=== PATIENT | male | born 1935 | race Asian ===

== ENCOUNTER 2021-01-13 10:31 | Inpatient (IN) | payer MEDICARE, BC ==
[2021-01-13] MEDS ORDERED: ACETAMINOPHEN TAB 325 MG TAB PO STA (10:54)
--- NOTE | 2021-01-13 11:06 | ED ---
Recheck HPI - General Chief Complaint: Recheck/Abnormal Lab/Rx Stated Complaint: covid+ Time Seen by Provider: 01/13/21 10:41 Source: patient, EMS Mode of arrival: EMS - History of Present Illness Initial Comments: 85-year-old male presents to emergency room with a chief complaint of covid. Patient reports he tested positive for covid-19 3 days ago. And he began developing symptoms. Patient reports generalized myalgias and fatigue. He denies any chest pain but does report occasional exertional dyspnea. States he contacted his primary care physician who advised him to come to the emergency department for evaluation of a pneumonia. Patient does report having fevers and chills at home. Reports decreased appetite with multiple episodes of nonbilious and nonbloody vomiting. Denies any diarrhea. Denies any abdominal pain at this time. - Related Data Home Medications Medication Instructions Recorded Confirmed Hydrocortisone Cream 1 applic TOPICAL BID PRN 01/13/21 01/13/21 [Hydrocortisone 2.5% Cream] Latanoprost/Pf [Latanoprost 0.005% 1 drop BOTH EYES HS 01/13/21 01/13/21 Eye Drop] Multivitamins, Thera [Multivitamin 1 tab PO DAILY 01/13/21 01/13/21 (formulary)] Allergies Allergy/AdvReac Type Severity Reaction Status Date / Time No Known Allergies Allergy Verified 01/13/21 12:03 Review of Systems ROS Statement: Those systems with pertinent positive or pertinent negative responses have been documented in the HPI. ROS Other: All systems not noted in ROS Statement are negative. Past Medical History Past Medical History: No Reported History History of Any Multi-Drug Resistant Organisms: None Reported Past Surgical History: No Surgical Hx Reported Smoking Status: Never smoker Past Alcohol Use History: None Reported Past Drug Use History: None Reported General Exam Limitations: no limitations General appearance: alert, in no apparent distress Head exam: Present: atraumatic, normocephalic, normal inspection Eye exam: Present: normal appearance, PERRL, EOMI Pupils: Present: normal accommodation ENT exam: Present: normal exam, normal oropharynx, mucous membranes moist, TM's normal bilaterally, normal external ear exam Neck exam: Present: normal inspection, full ROM. Absent: tenderness, lymphadenopathy Respiratory exam: Present: normal lung sounds bilaterally. Absent: respiratory distress, wheezes, rales, rhonchi, stridor, chest wall tenderness, accessory muscle use Cardiovascular Exam: Present: regular rate, normal rhythm, normal heart sounds GI/Abdominal exam: Present: soft. Absent: distended, tenderness, guarding, rebound Extremities exam: Present: normal inspection, full ROM, normal capillary refill, other (Palpable DP and PT bilaterally). Absent: tenderness, pedal edema, joint swelling, calf tenderness Back exam: Present: normal inspection, full ROM. Absent: tenderness, CVA tenderness (R), CVA tenderness (L) Neurological exam: Present: alert, oriented X3, normal gait Psychiatric exam: Present: normal affect, normal mood Skin exam: Present: warm, dry, intact, normal color Course Vital Signs 01/13/21 01/13/21 01/13/21 10:32 12:06 12:09 Temperature 99.7 F H 99.6 F Pulse Rate 75 75 Respiratory 18 18 18 Rate Blood Pressure 143/77 133/77 O2 Sat by Pulse 91 L 96 Oximetry 01/13/21 01/13/21 13:12 13:14 Temperature 99.0 F Pulse Rate 79 Respiratory 18 Rate Blood Pressure 127/70 O2 Sat by Pulse 88 L 93 L Oximetry Medical Decision Making - Medical Decision Making 85-year-old male presents to the emergency department with a chief complaint of cough and congestion. On physical examination, patient does not appear to be respiratory distress. On initial evaluation, patient is saturating at 99% on room air. He drops down to 88% when I'm bleeding. Chest x-ray reveals Covid pneumonia. Laboratory work reveals elevated reactive markers along with leukopenia and decrease in lymphocytes. I spoke to who will admit. Case discussed with Dr. Littlejohn. Pulmonary in consult. - Lab Data Result diagrams: 01/13/21 11:09 01/13/21 11:09 Lab Results 01/13/21 01/13/21 01/13/21 Range/Units 11:09 11:09 11:09 WBC 3.6 L (3.8-10.6) k/uL RBC 4.76 (4.30-5.90) m/uL Hgb 14.9 (13.0-17.5) gm/dL Hct 42.7 (39.0-53.0) % MCV 89.7 (80.0-100.0) fL MCH 31.2 (25.0-35.0) pg MCHC 34.8 (31.0-37.0) g/dL RDW 12.5 (11.5-15.5) % Plt Count 106 L (150-450) k/uL MPV 8.0 Neutrophils % 65 % Lymphocytes % 26 % Monocytes % 7 % Eosinophils % 0 % Basophils % 0 % Neutrophils # 2.3 (1.3-7.7) k/uL Lymphocytes # 0.9 L (1.0-4.8) k/uL Monocytes # 0.2 (0-1.0) k/uL Eosinophils # 0.0 (0-0.7) k/uL Basophils # 0.0 (0-0.2) k/uL PT 10.5 (9.0-12.0) sec INR 1.0 (<1.2) APTT 31.7 H (22.0-30.0) sec D-Dimer 0.26 (<0.60) mg/L FEU Sodium 135 L (137-145) mmol/L Potassium 4.6 (3.5-5.1) mmol/L Chloride 102 (98-107) mmol/L Carbon Dioxide 28 (22-30) mmol/L Anion Gap 5 mmol/L BUN 26 H (9-20) mg/dL Creatinine 0.83 (0.66-1.25) mg/dL Est GFR (CKD-EPI)AfAm >90 (>60 ml/min/1.73 sqM) Est GFR (CKD-EPI)NonAf 81 (>60 ml/min/1.73 sqM) Glucose 118 H (74-99) mg/dL Plasma Lactic Acid Carlos Alberto (0.7-2.0) mmol/L Calcium 8.6 (8.4-10.2) mg/dL Magnesium 2.3 (1.6-2.3) mg/dL Total Bilirubin 0.5 (0.2-1.3) mg/dL AST 84 H (17-59) U/L ALT 40 (4-49) U/L Alkaline Phosphatase 45 (38-126) U/L Lactate Dehydrogenase 946 H (313-618) U/L C-Reactive Protein 55.6 H (<10.0) mg/L Total Protein 6.6 (6.3-8.2) g/dL Albumin 3.5 (3.5-5.0) g/dL 01/13/21 Range/Units 11:09 WBC (3.8-10.6) k/uL RBC (4.30-5.90) m/uL Hgb (13.0-17.5) gm/dL Hct (39.0-53.0) % MCV (80.0-100.0) fL MCH (25.0-35.0) pg MCHC (31.0-37.0) g/dL RDW (11.5-15.5) % Plt Count (150-450) k/uL MPV Neutrophils % % Lymphocytes % % Monocytes % % Eosinophils % % Basophils % % Neutrophils # (1.3-7.7) k/uL Lymphocytes # (1.0-4.8) k/uL Monocytes # (0-1.0) k/uL Eosinophils # (0-0.7) k/uL Basophils # (0-0.2) k/uL PT (9.0-12.0) sec INR (<1.2) APTT (22.0-30.0) sec D-Dimer (<0.60) mg/L FEU Sodium (137-145) mmol/L Potassium (3.5-5.1) mmol/L Chloride (98-107) mmol/L Carbon Dioxide (22-30) mmol/L Anion Gap mmol/L BUN (9-20) mg/dL Creatinine (0.66-1.25) mg/dL Est GFR (CKD-EPI)AfAm (>60 ml/min/1.73 sqM) Est GFR (CKD-EPI)NonAf (>60 ml/min/1.73 sqM) Glucose (74-99) mg/dL Plasma Lactic Acid Carlos Alberto 1.2 (0.7-2.0) mmol/L Calcium (8.4-10.2) mg/dL Magnesium (1.6-2.3) mg/dL Total Bilirubin (0.2-1.3) mg/dL AST (17-59) U/L ALT (4-49) U/L Alkaline Phosphatase (38-126) U/L Lactate Dehydrogenase (313-618) U/L C-Reactive Protein (<10.0) mg/L Total Protein (6.3-8.2) g/dL Albumin (3.5-5.0) g/dL - EKG Data EKG Comments: First-degree AV block, sinus rhythm Ventricular rate Disposition Clinical Impression: Pneumonia due to COVID-19 virus Disposition: ADMITTED IP TO THIS HOSP Condition: Good Instructions (If sedation given, give patient instructions): Coronavirus Disease 2019 (COVID-19) Is patient prescribed a controlled substance at d/c from ED?: No Referrals: Atiya Malloy MD [Primary Care Provider] - 1-2 days Time of Disposition: 13:33
[2021-01-13 11:34] LABS: Basophils % (A) 0 %; Eosinophils % (A) 0 %; HCT 42.7 % (39.0-53.0); HGB 14.9 gm/dL (13.0-17.5); Lymphocytes # (A) 0.9 k/uL (1.0-4.8); Lymphocytes % (A) 26 %; MCH 31.2 pg (25.0-35.0); MCHC 34.8 g/dL (31.0-37.0); MCV 89.7 fL (80.0-100.0); Monocytes # (A) 0.2 k/uL (0-1.0); Monocytes % (A) 7 %; Neutrophils # (A) 2.3 k/uL (1.3-7.7); Neutrophils % (A) 65 %; Platelet Count 106 k/uL (150-450); RBC 4.76 m/uL (4.30-5.90); RDW 12.5 % (11.5-15.5); WBC 3.6 k/uL (3.8-10.6)
[2021-01-13 11:46] LABS: ALT 40 U/L (4-49); AST 84 U/L (17-59); African American GFR (CKD) >90 (>60 ml/min/1.73 sqM); Albumin 3.5 g/dL (3.5-5.0); Alkaline Phosphatase 45 U/L (38-126); Anion Gap 5 mmol/L; Blood Urea Nitrogen 26 mg/dL (9-20); C Reactive Protein 55.6 mg/L (<10.0); Calcium 8.6 mg/dL (8.4-10.2); Carbon Dioxide 28 mmol/L (22-30); Chloride 102 mmol/L (98-107); Glucose 118 mg/dL (74-99); LDH 946 U/L (313-618); Magnesium 2.3 mg/dL (1.6-2.3); Non-African American GFR(CKD) 81 (>60 ml/min/1.73 sqM); Potassium 4.6 mmol/L (3.5-5.1); Sodium 135 mmol/L (137-145); Total Bilirubin 0.5 mg/dL (0.2-1.3); Total Protein 6.6 g/dL (6.3-8.2)
[2021-01-13 11:50] LABS: D-Dimer 0.26 mg/L FEU (<0.60); Partial Thromboplastin Time 31.7 sec (22.0-30.0); Prothrombin Time 10.5 sec (9.0-12.0)
--- NOTE | 2021-01-13 12:18 | XR ---
EXAMINATION TYPE: XR chest 1V portable DATE OF EXAM: 01/13/2021 Comparison: None Clinical History: 85-year-old male cough and shortness of breath, Suspected COVID-19 pneumonia Findings: Heart mildly enlarged. Aorta and pulmonary vasculature within normal limits. Hyperinflation. Surgical clips below the GE junction. Patchy bibasilar opacities. No pleural effusions Impression: 1. COPD and borderline heart size. 2. Patchy bibasilar areas of COVID pneumonia.
[2021-01-13] MEDS ORDERED: LORazepam 2 MG/ML INJ IV PRN (13:30)
[2021-01-13] MEDS ORDERED: NALOXONE 0.4 MG/ML 1 ML VIAL IV PRN (13:30)
[2021-01-13] MEDS ORDERED: ONDANSETRON 4 MG/2 ML VIAL IVP PRN (13:30)
--- NOTE | 2021-01-13 13:49 | P.HPIM ---
History of Present Illness Patient is a pleasant 85-year-old male came in with complaints concerning for Covid. Patient was having shortness of breath myalgias fatigue for about 4 days he was tested for Covid 19 about 3 days ago. Patient this is mostly exertional he was also comparing of lightheadedness denied any diarrhea denied any chest pain was having fever chills at home patient was having nonbilious nonbloody vomiting as well. Review of Systems REVIEW OF SYSTEMS: CONSTITUTIONAL: As mentioned in HPI HEENT: No recent visual problems or hearing problems. Denied any sore throat. CARDIOVASCULAR: No chest pain, orthopnea, PND, no palpitations, no syncope. PULMONARY: no hemoptysis. GASTROINTESTINAL: As mentioned in HPI NEUROLOGICAL: No headaches, no weakness, no numbness. HEMATOLOGICAL: Denies any bleeding or petechiae. GENITOURINARY: Denies any burning micturition, frequency, or urgency. MUSCULOSKELETAL/RHEUMATOLOGICAL: Denies any joint pain, swelling, or any muscle pain. ENDOCRINE: Denies any polyuria or polydipsia. The rest of the 14-point review of systems is negative. Past Medical History Past Medical History: No Reported History History of Any Multi-Drug Resistant Organisms: None Reported Past Surgical History: No Surgical Hx Reported Smoking Status: Never smoker Past Alcohol Use History: None Reported Past Drug Use History: None Reported Medications and Allergies Home Medications Medication Instructions Recorded Confirmed Type Hydrocortisone Cream 1 applic TOPICAL BID PRN 01/13/21 01/13/21 History [Hydrocortisone 2.5% Cream] Latanoprost/Pf [Latanoprost 0.005% 1 drop BOTH EYES HS 01/13/21 01/13/21 History Eye Drop] Multivitamins, Thera [Multivitamin 1 tab PO DAILY 01/13/21 01/13/21 History (formulary)] Allergies Allergy/AdvReac Type Severity Reaction Status Date / Time No Known Allergies Allergy Verified 01/13/21 12:03 Physical Exam Vitals: Vital Signs Temp Pulse Resp BP Pulse Ox 01/13/21 13:14 93 L 01/13/21 13:12 99.0 F 79 18 127/70 88 L 01/13/21 12:09 18 01/13/21 12:06 99.6 F 75 18 133/77 96 01/13/21 10:32 99.7 F H 75 18 143/77 91 L Intake and Output 01/12/21 01/13/21 01/13/21 22:59 06:59 14:59 Other: Weight 56.699 kg PHYSICAL EXAMINATION: GENERAL: The patient is alert and oriented x3, not in any acute distress. Well developed, well nourished. HEENT: Pupils are round and equally reacting to light. EOMI except in the left eye which is opacified. No scleral icterus. No conjunctival pallor. Normocephalic, atraumatic. No pharyngeal erythema. No thyromegaly. CARDIOVASCULAR: S1 and S2 present. No murmurs, rubs, or gallops. PULMONARY: Chest is clear to auscultation, no wheezing or crackles. ABDOMEN: Soft, nontender, nondistended, normoactive bowel sounds. No palpable organomegaly. MUSCULOSKELETAL: No joint swelling or deformity. EXTREMITIES: No cyanosis, clubbing, or pedal edema. NEUROLOGICAL: Gross neurological examination did not reveal any focal deficits. SKIN: No rashes. Results CBC & Chem 7: 01/13/21 11:09 01/13/21 11:09 Labs: Abnormal Lab Results - Last 24 Hours (Table) 01/13/21 01/13/21 01/13/21 Range/Units 11:09 11:09 11:09 WBC 3.6 L (3.8-10.6) k/uL Plt Count 106 L (150-450) k/uL Lymphocytes # 0.9 L (1.0-4.8) k/uL APTT 31.7 H (22.0-30.0) sec Sodium 135 L (137-145) mmol/L BUN 26 H (9-20) mg/dL Glucose 118 H (74-99) mg/dL AST 84 H (17-59) U/L Lactate Dehydrogenase 946 H (313-618) U/L C-Reactive Protein 55.6 H (<10.0) mg/L Assessment and Plan Plan: Covid 19 pneumonia and hypoxia secondary to Covid 19: Patient chest x-ray showing typical infiltrate for Covid 19 patient does have elevated inflammatory markers d-dimer is 0.26, patient's symptomatology is only of 4 days duration. I'll leave the decision of further steroids to pulmonology patient will be started on Remdesivir Covid vitamins. Patient is presently on 2 L of oxygen. Patient will be monitored -Dizziness: Secondary to Covid 19 infection, patient will be continued on IV fluids -DVT prophylaxis: Lovenox for GI prophylaxis with Pepcid
[2021-01-13] MEDS ORDERED: REMDESIVIR 200 MG in SODIUM CHLORIDE 0.9% 250 ML IVPB ONE (14:00)
[2021-01-13] MEDS: ASCORBIC ACID 500 MG TAB PO SCH ×2 (16:05→20:31)
[2021-01-13] MEDS: SODIUM CHLORIDE 0.9% 1,000 ML IV SCH ×2 (16:05→19:13)
[2021-01-13] MEDS: FAMOTIDINE 20 MG TAB PO SCH ×2 (16:05→20:31)
[2021-01-13] MEDS: ZINC SULFATE 220 MG CAP PO SCH (16:08)
[2021-01-14 00:45] LABS: Ferritin 2285.2 ng/mL (22.0-322.0)
[2021-01-14] MEDS: ACETAMINOPHEN TAB 325 MG TAB PO PRN ×2 (02:58→15:16)
[2021-01-14] MEDS: SODIUM CHLORIDE 0.9% 1,000 ML IV SCH ×4 (03:53→17:38)
[2021-01-14] MEDS ORDERED: PANTOPRAZOLE 40 MG/10 ML VIAL IV SCH (09:00)
[2021-01-14] MEDS: ASCORBIC ACID 500 MG TAB PO SCH ×2 (09:02→20:39)
[2021-01-14] MEDS: FAMOTIDINE 20 MG TAB PO SCH ×2 (09:02→20:39)
[2021-01-14] MEDS: ENOXAPARIN 40 MG/0.4 ML SYRINGE SQ SCH (09:02)
[2021-01-14] MEDS: ZINC SULFATE 220 MG CAP PO SCH (09:02)
[2021-01-14] MEDS: dexAMETHasone 2 MG TAB PO SCH (13:22)
--- NOTE | 2021-01-14 13:39 | P.PN ---
Subjective Patient is a pleasant 85-year-old male came in with complaints concerning for Covid. Patient was having shortness of breath myalgias fatigue for about 4 days he was tested for Covid 19 about 3 days ago. Patient this is mostly exertional he was also comparing of lightheadedness denied any diarrhea denied any chest pain was having fever chills at home patient was having nonbilious nonbloody vomiting as well. 01/14/2021 Patient is clinically doing fairly well, requires oxygen for ambulation. We'll continue to monitor him today. Patient if patient's oxygen requirements doesn't go up patient probably can be discharged. is presently on 2 L of oxygen. Patient is being continued on Remdesivir and patient is was started on Decadron as well. Constitutional: Denied any fatigue denied any fever. Cardio vascular: denied any chest pain, palpitations Gastrointestinal denied any nausea vomiting Pulmonary: Denied any shortness of breath cough Neurologic denied any new focal deficits All inpatient medications were reviewed and appropriate changes in these medications as dictated in the interval history and assessment and plan. Objective - Vital Signs Vital signs: Vital Signs Temp 99.5 F 01/14/21 10:21 Pulse 68 01/14/21 10:21 Resp 16 01/14/21 06:10 BP 114/59 01/14/21 10:21 Pulse Ox 96 01/14/21 10:21 Intake & Output 01/13/21 01/14/21 01/14/21 18:59 06:59 18:59 Weight 56.699 kg Other: Voiding Method Toilet # Voids 1 3 - Exam PHYSICAL EXAMINATION: GENERAL: The patient is alert and oriented x3, not in any acute distress. Well developed, well nourished. HEENT: Pupils are round and equally reacting to light. EOMI except in the left eye which is opacified. No scleral icterus. No conjunctival pallor. Normocephalic, atraumatic. No pharyngeal erythema. No thyromegaly. CARDIOVASCULAR: S1 and S2 present. No murmurs, rubs, or gallops. PULMONARY: Chest is clear to auscultation, no wheezing or crackles. ABDOMEN: Soft, nontender, nondistended, normoactive bowel sounds. No palpable organomegaly. MUSCULOSKELETAL: No joint swelling or deformity. EXTREMITIES: No cyanosis, clubbing, or pedal edema. NEUROLOGICAL: Gross neurological examination did not reveal any focal deficits. SKIN: No rashes. - Labs CBC & Chem 7: 01/13/21 11:09 01/13/21 11:09 Labs: Abnormal Lab Results - Last 24 Hours (Table) 01/13/21 Range/Units 11:09 Ferritin 2285.2 H (22.0-322.0) ng/mL Assessment and Plan Plan: Covid 19 pneumonia and hypoxia secondary to Covid 19: Patient chest x-ray showing typical infiltrate for Covid 19 patient does have elevated inflammatory markers d-dimer is 0.26, patient's symptomatology is only of 4 days duration. Patient is presently on Remdesivir Covid vitamins, Decadron. Patient is presently on 2 L of oxygen. Patient will be monitored. If patient's arms and the colon was doesn't go probably can be discharged on oxygen to home tomorrow. -Dizziness: Secondary to Covid 19 infection, patient will be continued on IV fluids -DVT prophylaxis: Lovenox for GI prophylaxis with Pepcid
--- NOTE | 2021-01-14 14:36 | P.PN ---
Subjective Progress Note Date: 01/14/21 Principal diagnosis: COVID-19 pneumonia On 01/14/2021 patient seen in follow-up on medical surgical floor, he was a bit better today, remains on 2 L of oxygen pulse ox is 96%, he did have a fever spike this afternoon, with a temp of 101.9F, no worsening dyspnea, lung sounds are positive for diffuse coarse crackles throughout the lung [place], no nausea or vomiting, no dizziness, breathing fairly comfortably, no significant cough, remains weak. No new labs from today, on yesterday's labs his d-dimer was 0.26, sodium is 135 and the rest of electrolytes and renal profile were unremarkable. LDH was 946, and CRP was 55.6. We did start the patient on Remdesivir yesterday, today is day 2 of treatment, he remains on point and was seen at a rate of 75 ML per hour, he is on multivitamins, prophylactic Lovenox, and we will add Decadron today. Objective - Vital Signs Vital signs: Vital Signs Temp 101.9 F H 01/14/21 14:00 Pulse 67 01/14/21 14:00 Resp 18 01/14/21 14:00 BP 132/65 01/14/21 14:00 Pulse Ox 96 01/14/21 14:00 Intake & Output 01/13/21 01/14/21 01/14/21 18:59 06:59 18:59 Weight 56.699 kg Other: Voiding Method Toilet # Voids 1 3 - Exam GENERAL EXAM: Very pleasant, 85-year-old frail looking male 2 L of oxygen and a pulse ox of 96% comfortable in no apparent distress. HEAD: Normocephalic/atraumatic. EYES: Normal reaction of pupils, equal size. Conjunctiva pink, sclera white. NOSE: Clear with pink turbinates. THROAT: No erythema or exudates. NECK: No masses, no JVD, no thyroid enlargement, no adenopathy. CHEST: No chest wall deformity. Symmetrical expansion. LUNGS: Equal air entry with coarse diffuse crackles throughout CVS: Regular rate and rhythm, normal S1 and S2, no gallops, no murmurs, no rubs ABDOMEN: Soft, nontender. No hepatosplenomegaly, normal bowel sounds, no guarding or rigidity. EXTREMITIES: No clubbing, no edema, no cyanosis, 2+ pulses and upper and lower extremities. MUSCULOSKELETAL: Muscle strength and tone normal. SPINE: No scoliosis or deformity SKIN: No rashes CENTRAL NERVOUS SYSTEM: Alert and oriented -3. No focal deficits, tone is normal in all 4 extremities. PSYCHIATRIC: Alert and oriented -3. Appropriate affect. Intact judgment and insight. - Labs CBC & Chem 7: 01/13/21 11:09 01/13/21 11:09 Labs: Abnormal Lab Results - Last 24 Hours (Table) 01/13/21 Range/Units 11:09 Ferritin 2285.2 H (22.0-322.0) ng/mL Assessment and Plan Plan: assessment: #1. Acute hypoxic respiratory failure related to acute COVID-19 pneumonia, p ositive symptoms 4 days prior to presentation, patient was started on Remdesivir on 01/13/2021 #2. Dizziness, weakness, fever related to the above #3. Increased inflammatory markers related to the above Plan: We will add Decadron to patient's treatment, continue the multivitamins, the D2 of treatment, follow-up inflammatory markers tomorrow, continue same dose Lovenox, follow-up d-dimer tomorrow I performed a history & physical examination of the patient and discussed their management with my nurse practitioner, Sophia Garcia. I reviewed the nurse practitioner's note and agree with the documented findings and plan of care. Lung sounds are positive for diffuse crackles. The findings and the impression was discussed with the patient. I attest to the documentation by the nurse pra ctitioner. Time with Patient: Less than 30
--- NOTE | 2021-01-14 14:48 | P.CNPUL ---
History of Present Illness Consult date: 01/13/21 Reason for consult: dyspnea, pneumonia History of present illness: 85-year-old male patient presented with Covid 19 related pneumonia and the pat ient is currently on oxygen at 2 L per minute nasal cannula and a chest x-ray showing COPD and patchy bibasilar pulmonary infiltrates consistent with pneumonia. The patient developed symptoms of generalized weakness and fatigue and myalgias along with some fever and chills and multiple episodes of nausea and vomiting and he tested positive for Covid 19 around 3 days ago. Based on worsening shortness of breath, the patient came into the emergency department and he was hospitalized. His current vitals are all stable, white cell count is at 3.6 and the patient a platelet count of 106, the patient had normal electrolytes, normal renal function, LDH was 946 with a CRP level of 55.6 and electrolytes and renal function were all within normal limits. The d-dimer was at 0.26. Rest of the correlation profile is within normal limits. Lactic acid level was at 1.2. EKG was showing a first degree AV block, normal sinus rhythm. Review of Systems Constitutional: Reports chills, Reports fatigue, Reports fever, Reports malaise, Reports poor appetite, Reports weakness Eyes: denies as per HPI, denies blurred vision, denies bulging eye, denies decreased vision, denies diplopia, denies discharge, denies dry eye, denies irritation, denies itching, denies pain, denies photophobia, denies loss of peripheral vision, denies loss of vision, denies tunnel vision/blind spots Ears: deny: decreased hearing, ear discharge, earache, tinnitus Ears, nose, mouth and throat: Reports as per HPI Breasts: absent: as per HPI, gynecomastia Cardiovascular: Reports decreased exercise tolerance, Reports dyspnea on exertion Respiratory: Reports cough, Reports dyspnea Gastrointestinal: Reports as per HPI, Reports nausea, Reports vomiting Genitourinary: Reports as per HPI Musculoskeletal: Reports as per HPI, Reports muscle weakness Musculoskeletal: absent: ankle pain, ankle stiffness, ankle swelling, as per HPI, elbow pain, elbow stiffness, elbow swelling, foot pain, foot stiffness, foot swelling, hand pain, hand stiffness, hand swelling, hip pain, hip stiffness, hip swelling, knee pain, knee stiffness, knee swelling, shoulder pain, shoulder stiffness, shoulder swelling, wrist pain, wrist stiffness, wrist swelling Integumentary: Reports as per HPI Neurological: Reports weakness Psychiatric: Reports as per HPI Endocrine: Reports as per HPI, Reports fatigue Allergic/Immunologic: Reports as per HPI Past Medical History Past Medical History: No Reported History History of Any Multi-Drug Resistant Organisms: None Reported Past Surgical History: No Surgical Hx Reported Smoking Status: Never smoker Past Alcohol Use History: None Reported Past Drug Use History: None Reported - Past Family History Mother History Unknown: Yes Medications and Allergies Home Medications Medication Instructions Recorded Confirmed Type Hydrocortisone Cream 1 applic TOPICAL BID PRN 01/13/21 01/13/21 History [Hydrocortisone 2.5% Cream] Latanoprost/Pf [Latanoprost 0.005% 1 drop BOTH EYES HS 01/13/21 01/13/21 History Eye Drop] Multivitamins, Thera [Multivitamin 1 tab PO DAILY 01/13/21 01/13/21 History (formulary)] Allergies Allergy/AdvReac Type Severity Reaction Status Date / Time No Known Allergies Allergy Verified 01/13/21 12:03 Physical Exam Vitals: Vital Signs Temp Pulse Resp BP Pulse Ox 01/13/21 14:29 99.0 F 79 18 127/70 93 L 01/13/21 13:14 93 L 01/13/21 13:12 99.0 F 79 18 127/70 88 L 01/13/21 12:09 18 01/13/21 12:06 99.6 F 75 18 133/77 96 01/13/21 10:32 99.7 F H 75 18 143/77 91 L Intake and Output 01/13/21 01/13/21 01/13/21 06:59 14:59 22:59 Other: Weight 56.699 kg Gen. appearance the patient is calm and comfortable no acute distress Head exam was generally normal. There was no scleral icterus or corneal arcus. Mucous membranes were moist. Neck was supple and without jugular venous distension, thyromegaly, or carotid bruits. Carotids were easily palpable bilaterally. There was no adenopathy. Lungs were clear to auscultation and percussion, and with normal diaphragmatic excursion. crackles in lung bases bilaterally Cardiac exam revealed the PMI to be normally situated and sized. The rhythm was regular and no extrasystoles were noted during several minutes of auscultation. The first and second heart sounds were normal and physiologic splitting of the second heart sound was noted. There were no murmurs, rubs, clicks, or gallops. Abdominal exam revealed normal bowel sounds. The abdomen was soft, non-tender, and without masses, organomegaly, or appreciable enlargement of the abdominal aorta. Examination of the extremities revealed easily palpable radial, femoral and pedal pulses. There was no cyanosis, clubbing or edema. Examination of the skin revealed no evidence of significant rashes, suspicious appearing nevi or other concerning lesions. Neurologically, the patient is awake and alert and the patient does not have any focal neurological deficit. Cranial nerves are essentially intact. Results - Laboratory Findings CBC and BMP: 01/13/21 11:09 01/13/21 11:09 PT/INR, D-dimer PT 10.5 sec (9.0-12.0) 01/13/21 11:09 INR 1.0 (<1.2) 01/13/21 11:09 D-Dimer 0.26 mg/L FEU (<0.60) 01/13/21 11:09 Abnormal lab findings: Abnormal Labs 01/13/21 01/13/21 01/13/21 11:09 11:09 11:09 WBC 3.6 L Plt Count 106 L Lymphocytes # 0.9 L APTT 31.7 H Sodium 135 L BUN 26 H Glucose 118 H AST 84 H Lactate Dehydrogenase 946 H C-Reactive Protein 55.6 H - Diagnostic Findings Chest x-ray: image reviewed Assessment and Plan Plan: 1 acute Covid 19 related pneumonia 2 acute hypoxic respiratory failure currently on 2 L of Oxymizer nasal cannula 3 leukopenia and lymphopenia secondary to above 4 thrombocytopenia secondary to above 5 constitutions symptoms and elevation of the inflammatory markers secondary to above. D-dimer is low Plan Continue oxygen at 2 L Agree on Decadron 6 mg by mouth daily Lovenox 40 mg subcu every 24 hours IV fluids 75 mL an hour Remdesivir protocol Monitor blood work and inflammatory markers We'll follow
--- NOTE | 2021-01-14 14:55 | CDI ---
Documentation Clarification Form Date: 01/14/2021 02:33:04 PM From: Leonora Casiano RN CCDS Admit Date: 01/13/2021 01:29:00 PM Patient Name: Narinder Burkett Visit Number: [id number] Discharge Date: ATTENTION: The Clinical Documentation Specialists (CDI) and [facility] Coding Staff appreciate your assistance in clarifying documentation. Please respond to the clarification below the line at the bottom and electronically sign. The CDI & [facility] Coding staff will review the response and follow-up if needed. Please note: Queries are made part of the Legal Health Record. If you have any questions, please contact the author of this message via ITS. Dr. Sudeep Solitario Your patient has hypoxia secondary to COVID 19 documented in H&P 01/13/21. Based on this information and the findings below, is there an additional diagnosis that is clinically appropriate for this patient? History/Risk Factors: 85-year-old male presents to the ED with shortness of breath myalgias and fatigue for 4 days. Tested about 3 days ago for COVID 19. Tobacco use: Never Home oxygen: None Clinical Indicators: COVID 19 pneumonia and hypoxia secondary to COVID 19. 01/13/21 H&P can be discharge on oxygen to home tomorrow. 01/14/21 medical progress note. Vital signs 01/13 13:12: B/P 127/70; HR 79; Temp 99.0 F Oral; RR 18; SpO2 88% room air. Patient was put on 2L nasal cannula SpO2 93% Vital signs 01/13 18:00: B/P 123/6; HR 65; Temp 97.6 F Oral; RR 18; SpO2 96% 2L nasal cannula Lung/Breathing assessment 01/14: Chest is clear to auscultation, no wheezing or crackles. Treatment: 01/14 Hexadrol 6mg po daily. Oxygen 2L nasal cannula Is there an additional diagnosis that is clinically appropriate for this patient? Acute Hypoxic Respiratory Failure (pO2 <60 mm Hg or SpO2 <91% on room air) Other Diagnosis, please specify Unable to determine (Template Last Revised: December 2020) _Acute Hypoxic Respiratory Failure MTDD
[2021-01-14] MEDS ORDERED: REMDESIVIR 100 MG in SODIUM CHLORIDE 0.9% 250 ML IVPB SCH (16:00)
[2021-01-15] MEDS: SODIUM CHLORIDE 0.9% 1,000 ML IV SCH ×2 (04:36)
[2021-01-15] MEDS ORDERED: PANTOPRAZOLE 40 MG TABLET PO SCH (07:30)
[2021-01-15] MEDS: ZINC SULFATE 220 MG CAP PO SCH (08:09)
[2021-01-15] MEDS: FAMOTIDINE 20 MG TAB PO SCH (08:09)
[2021-01-15] MEDS: dexAMETHasone 2 MG TAB PO SCH (08:09)
[2021-01-15] MEDS: ASCORBIC ACID 500 MG TAB PO SCH (08:09)
[2021-01-15] MEDS: ENOXAPARIN 40 MG/0.4 ML SYRINGE SQ SCH (08:09)
[2021-01-15] MEDS ORDERED: dexAMETHasone 2 MG TAB PO SCH (09:00)
[2021-01-15 09:52] VITALS: RESP 18
--- NOTE | 2021-01-15 10:15 | XR ---
EXAMINATION TYPE: XR chest 1V portable DATE OF EXAM: 01/15/2021 COMPARISON: 01/13/2021 INDICATION: Short of breath, cold. TECHNIQUE: Single frontal view of the chest is obtained. FINDINGS: The heart size is highly prominent. The pulmonary vasculature is normal. Bibasilar infiltrates are present slightly greater on the right. Findings are worsening. IMPRESSION: 1. Worsening bibasilar infiltrates. Findings can Correlate for atypical pneumonia.
--- NOTE | 2021-01-15 12:21 | P.PN ---
Subjective Progress Note Date: 01/15/212020 the patient is a comfortably in bed. No new complaints. He is on oxygen at 2 L per minute nasal cannula. He is eating. He thinks his appetite is back. No worsening shortness of breath. No nausea. No vomiting. No diarrhea. He still weak. Decision is whether to send him home versus rehabilitation. He remains on Decadron. Objective - Vital Signs Vital signs: Vital Signs Temp 98.3 F 01/15/21 09:23 Pulse 55 L 01/15/21 09:23 Resp 18 01/15/21 09:23 BP 123/52 01/15/21 09:23 Pulse Ox 93 L 01/15/21 09:23 Intake & Output 01/14/21 01/15/21 01/15/21 18:59 06:59 18:59 Other: Voiding Method Toilet # Voids 3 1 - Exam GENERAL EXAM: Very pleasant, 85-year-old frail looking male 2 L of oxygen and a pulse ox of 96% comfortable in no apparent distress. HEAD: Normocephalic/atraumatic. EYES: Normal reaction of pupils, equal size. Conjunctiva pink, sclera white. NOSE: Clear with pink turbinates. THROAT: No erythema or exudates. NECK: No masses, no JVD, no thyroid enlargement, no adenopathy. CHEST: No chest wall deformity. Symmetrical expansion. LUNGS: Equal air entry with coarse diffuse crackles throughout CVS: Regular rate and rhythm, normal S1 and S2, no gallops, no murmurs, no rubs ABDOMEN: Soft, nontender. No hepatosplenomegaly, normal bowel sounds, no guarding or rigidity. EXTREMITIES: No clubbing, no edema, no cyanosis, 2+ pulses and upper and lower extremities. MUSCULOSKELETAL: Muscle strength and tone normal. SPINE: No scoliosis or deformity SKIN: No rashes CENTRAL NERVOUS SYSTEM: Alert and oriented -3. No focal deficits, tone is normal in all 4 extremities. PSYCHIATRIC: Alert and oriented -3. Appropriate affect. Intact judgment and insight. - Labs CBC & Chem 7: 01/13/21 11:09 01/13/21 11:09 Labs: Abnormal Lab Results - Last 24 Hours (Table) 01/14/21 Range/Units 10:46 Procalcitonin 0.18 H (0.02-0.09) ng/mL Assessment and Plan Plan: 1 acute Covid 19 related pneumonia, clinically improved. Appetite improved. Oxygen levels are stable at 2 L. 2 acute hypoxic respiratory failure currently on 2 L of Oxymizer nasal cannula 3 leukopenia and lymphopenia secondary to above 4 thrombocytopenia secondary to above 5 constitutions symptoms and elevation of the inflammatory markers secondary to above. D-dimer is low Plan Continue oxygen at 2 L Agree on Decadron 6 mg by mouth daily Lovenox 40 mg subcu every 24 hours Remdesivir protocol day #3. This can be cut short and the patient can be transferred to either home or rehabilitation. He will need oxygen at time of discharge. We'll follow
[2021-01-15 13:15] LABS: African American GFR (CKD) 101.1 (60.0-200.0); Anion Gap 5.2 mmol/L (4.00-12.00); BUN/Creat Ratio 34.29 Ratio (12.00-20.00); C Reactive Protein 4.8 mg/dL (0.0-0.8); Calcium 8.1 mg/dL (8.7-10.3); Carbon Dioxide 24.8 mmol/L (21.6-31.8); Non-African American GFR(CKD) 87.3 (60.0-200.0); Potassium 4.3 mmol/L (3.5-5.5)
--- NOTE | 2021-01-15 13:24 | P.DS ---
Providers Date of admission: 01/13/21 13:29 Attending physician: Sudeep Solitario Consults: 01/13/21 13:30 Consult Physician Routine Consulting Provider: Dennis Nation Consult Reason/Comments: Covid pneumonia Do you want consulting provider notified?: Yes Primary care physician: Atiya [facility] Course: Patient is a pleasant 85-year-old male came in with complaints concerning for Covid. Patient was having shortness of breath myalgias fatigue for about 4 days he was tested for Covid 19 about 3 days ago. Patient this is mostly exertional he was also comparing of lightheadedness denied any diarrhea denied any chest pain was having fever chills at home patient was having nonbilious nonbloody vomiting as well. 01/14/2021 Patient is clinically doing fairly well, requires oxygen for ambulation. We'll continue to monitor him today. Patient if patient's oxygen requirements doesn't go up patient probably can be discharged. is presently on 2 L of oxygen. Patient is being continued on Remdesivir and patient is was started on Decadron as well. PHYSICAL EXAMINATION: GENERAL: The patient is alert and oriented x3, not in any acute distress. Well developed, well nourished. HEENT: Pupils are round and equally reacting to light. EOMI except in the left eye which is opacified. No scleral icterus. No conjunctival pallor. Normocephalic, atraumatic. No pharyngeal erythema. No thyromegaly. CARDIOVASCULAR: S1 and S2 present. No murmurs, rubs, or gallops. PULMONARY: Chest is clear to auscultation, no wheezing or crackles. ABDOMEN: Soft, nontender, nondistended, normoactive bowel sounds. No palpable organomegaly. MUSCULOSKELETAL: No joint swelling or deformity. EXTREMITIES: No cyanosis, clubbing, or pedal edema. NEUROLOGICAL: Gross neurological examination did not reveal any focal deficits. SKIN: No rashes. Assessment and Plan Plan: Covid 19 pneumonia and hypoxia : Patient is doing better today patient will be Mika 2 L of oxygen desaturates upon ambulation. Patient received 2 days of Remdesivir. Patient will be discharged on Decadron and multivitamins -Dizziness: Secondary to Covid 19 infection, improved with IV fluids Patient Condition at Discharge: Good Plan - Discharge Summary Discharge Rx Participant: Yes New Discharge Prescriptions: New dexAMETHasone ORAL [Hexadrol] 6 mg PO DAILY #6 tab Zinc Sulfate [Orazinc] 220 mg PO DAILY #20 cap Famotidine [Pepcid] 20 mg PO BID #14 tab Ascorbic Acid [Vitamin C] 500 mg PO BID #20 tab Continue Multivitamins, Thera [Multivitamin (formulary)] 1 tab PO DAILY Latanoprost/Pf [Latanoprost 0.005% Eye Drop] 1 drop BOTH EYES HS Hydrocortisone Cream [Hydrocortisone 2.5% Cream] 1 applic TOPICAL BID PRN PRN Reason: Rash Discharge Medication List Hydrocortisone Cream [Hydrocortisone 2.5% Cream] 1 applic TOPICAL BID PRN 01/13/21 [History] Latanoprost/Pf [Latanoprost 0.005% Eye Drop] 1 drop BOTH EYES HS 01/13/21 [History] Multivitamins, Thera [Multivitamin (formulary)] 1 tab PO DAILY 01/13/21 [Histor y] Ascorbic Acid [Vitamin C] 500 mg PO BID #20 tab 01/15/21 [Rx] Famotidine [Pepcid] 20 mg PO BID #14 tab 01/15/21 [Rx] Zinc Sulfate [Orazinc] 220 mg PO DAILY #20 cap 01/15/21 [Rx] dexAMETHasone ORAL [Hexadrol] 6 mg PO DAILY #6 tab 01/15/21 [Rx] Follow up Appointment(s)/Referral(s): Atiya Malloy MD [Primary Care Provider] - 3 Days Patient Instructions/Handouts: Coronavirus Disease 2019 (COVID-19)
[2021-01-15 15:49] VITALS: BP 128/61; PULSE 63; TEMP 97.4
== END 2021-01-15 16:53 | disposition home or self-care (01) | DRG 177 ==
LOC: EC 10:31 → 4SSUR 13:29
PROVIDERS: ADMIT Internal Medicine; ATTEND Internal Medicine
PROC: XW033E5 Introduction of Remdesivir Anti-infective into Peripheral Vein, Percutaneous Approach, New Technology Group 5 (ICD-10-PCS; principal; 2021-01-14)
DX: U07.1 COVID-19 (principal); J96.01 Acute respiratory failure with hypoxia; J12.82 Pneumonia due to coronavirus disease 2019; D72.819 Decreased white blood cell count, unspecified; D72.810 Lymphocytopenia; D69.59 Other secondary thrombocytopenia; Z79.899 Other long term (current) drug therapy
CPT/HCPCS: 36415; 71045; 80048; 80053; 82728; 83605; 83615; 83735; 84145; 85025; 85379; 85610; 85730; 86140; 93005; 94760; 99285

== ENCOUNTER 2022-06-03 09:35 | Inpatient (IN) | payer MEDICARE, BC ==
[2022-06-03 09:42] LABS: Glucose,Whole Blood 233 mg/dL (70-110)
[2022-06-03] MEDS ORDERED: LORazepam 2 MG/ML INJ IV STA ×4 (09:51→11:14)
--- NOTE | 2022-06-03 09:53 | ED ---
General Adult HPI - General Chief complaint: Cardiac Arrest/CPR Stated complaint: cardiac arrest Time Seen by Provider: 06/03/22 09:35 Source: patient, EMS, RN notes reviewed, old records reviewed Mode of arrival: EMS - History of Present Illness Initial comments: This is an 86-year-old male who presents emergency Department after being found unresponsive by his at 835. When EMS arrived patient was in PE they started following ACLS protocol patient was given 2 epis and intubated at that point time the had return of spontaneous circulation and 905. In route patient's patient was bradycardic so they started pacing the patient in route. When patient arrived he had a good pulse without pacing and a blood pressure in the normal range. No other history is available this time - Related Data Home Medications Medication Instructions Recorded Confirmed Latanoprost/Pf [Latanoprost 0.005% 1 drop BOTH EYES HS 01/13/21 06/03/22 Eye Drop] Ascorbic Acid [Vitamin C] 1,000 mg PO DAILY 06/03/22 06/03/22 Cholecalciferol [Vitamin D3 (25 25 mcg PO DAILY 06/03/22 06/03/22 Mcg = 1000 Iu)] Cyanocobalamin (Vitamin B-12) 1,000 mcg PO DAILY 06/03/22 06/03/22 [Vitamin B-12] Melatonin 5 mg PO HS 06/03/22 06/03/22 Multivit-Min/FA/Lycopen/Lutein 1 tab PO DAILY 06/03/22 06/03/22 [Centrum Silver Tablet] Zinc 50 mg PO DAILY 06/03/22 06/03/22 Allergies Allergy/AdvReac Type Severity Reaction Status Date / Time No Known Allergies Allergy Verified 06/03/22 12:19 Review of Systems ROS Statement: Those systems with pertinent positive or pertinent negative responses have been documented in the HPI. ROS Other: All systems not noted in ROS Statement are negative. Past Medical History Past Medical History: No Reported History History of Any Multi-Drug Resistant Organisms: None Reported Past Surgical History: No Surgical Hx Reported Past Psychological History: Unable to Obtain Smoking Status: Never smoker Past Alcohol Use History: None Reported Past Drug Use History: None Reported - Past Family History Mother History Unknown: Yes General Exam - General Exam Comments Initial Comments: GENERAL: Patient is well-developed and well-nourished. Patient is nontoxic and well- hydrated and is intubated and unresponsive ENT: Neck is soft and supple. No significant lymphadenopathy is noted. Oropharynx is clear. Moist mucous membranes. Neck has full range of motion without eliciting any pain. EYES: The sclera were anicteric and conjunctiva were pink and moist. PULMONARY: Patient is intubated does have good breath sounds bilaterally. Patient is breathing on his own. No audible rales rhonchi or wheezing was noted. CARDIOVASCULAR: There is a regular rate and rhythm without any murmurs gallops or rubs. ABDOMEN: Soft and nontender with normal bowel sounds. SKIN: Skin is clear with no lesions or rashes and otherwise unremarkable. NEUROLOGIC: Patient is unresponsive MUSCULOSKELETAL: No lower extremity swelling or edema. No calf tenderness. LYMPHATICS: No significant lymphadenopathy is noted PSYCHIATRIC: Unable to stop Course Vital Signs 06/03/22 06/03/22 06/03/22 09:35 09:44 09:56 Temperature Pulse Rate 50 L 78 97 Respiratory 18 22 22 Rate Blood Pressure 112/96 161/140 151/71 O2 Sat by Pulse 98 98 96 Oximetry Fraction of 100 Inspired Oxygen (FIO2) 06/03/22 06/03/22 06/03/22 10:01 10:32 10:57 Temperature 98.0 F Pulse Rate 102 H 110 H 91 Respiratory 26 H 26 H 23 Rate Blood Pressure 110/64 109/56 O2 Sat by Pulse 94 L 99 96 Oximetry Fraction of Inspired Oxygen (FIO2) 06/03/22 06/03/22 06/03/22 11:06 11:14 11:26 Temperature Pulse Rate 100 107 H 144 H Respiratory 41 H 46 H 36 H Rate Blood Pressure 124/55 118/82 120/82 O2 Sat by Pulse 96 94 L 83 L Oximetry Fraction of Inspired Oxygen (FIO2) 06/03/22 06/03/22 06/03/22 11:52 12:29 12:53 Temperature Pulse Rate 141 H 106 H 92 Respiratory 39 H 35 H 30 H Rate Blood Pressure 123/73 104/61 120/62 O2 Sat by Pulse 84 L 95 100 Oximetry Fraction of Inspired Oxygen (FIO2) Medical Decision Making - Medical Decision Making EKG shows a wide complex rhythm at 77 bpm QRS is 171 Q-T intervals 496 QTC is 528. Patient has a right bundle branch block. I immediately call cardiology after I assessed the patient and I spoke with Dr. Munoz at this time he didn't feel the patient needed to go to [facility]. CT of the brain shows no acute abnormality. CT of the chest shows no pulmonary embolism for probable bilateral pneumonia. This was diagnosed at 1145 a.m. Patient did receive Rocephin and vancomycin emergency department. Repeat EKG was done when the patient's pulse ox started to drop in his heart rate went up is still shows a wide complex rhythm that is not tachycardic at 141 bpm QRS is under 46 Q-T intervals 298 QTC is 380. Spoke with Dr. Nation he agreed to take the patient and the ICU. I spoke with a significant hospital stay to admit the patient. I spoke with Dr. Munoz after the patient had all studies done in the emergency department and informed him it was not a pulmonary embolism and that the patient now was in a wide complex tachycardia which was different than the initial EKG because the rate was now down. - Lab Data Result diagrams: 06/03/22 09:54 06/03/22 09:54 Lab Results 06/03/22 06/03/22 06/03/22 Range/Units 09:40 09:54 09:54 WBC 18.0 H (3.8-10.6) k/uL RBC 4.22 L (4.30-5.90) m/uL Hgb 13.2 (13.0-17.5) gm/dL Hct 42.2 (39.0-53.0) % MCV 100.0 (80.0-100.0) fL MCH 31.2 (25.0-35.0) pg MCHC 31.2 (31.0-37.0) g/dL RDW 13.2 (11.5-15.5) % Plt Count 151 (150-450) k/uL MPV 8.2 Neutrophils % (Manual) 46 % Lymphocytes % (Manual) 45 % Monocytes % (Manual) 7 % Eosinophils % (Manual) 1 % Basophils % (Manual) 1 % Metamyelocytes % 1 % Neutrophils # (Manual) 8.28 H (1.3-7.7) k/uL Lymphocytes # (Manual) 8.10 H (1.0-4.8) k/uL Monocytes # (Manual) 1.26 H (0-1.0) k/uL Eosinophils # (Manual) 0.18 (0-0.7) k/uL Basophils # (Manual) 0.18 (0-0.2) k/uL Metamyelocytes # (Man) 0.18 H (0) k/uL Nucleated RBCs 0 (0-0) /100 WBC Manual Slide Review Performed Hypochromasia Slight PT 12.2 H (9.0-12.0) sec INR 1.1 (<1.2) APTT 33.5 H (22.0-30.0) sec D-Dimer 19.24 H (<0.60) mg/L FEU Sample Site ABG pH (7.35-7.45) ABG pCO2 (35-45) mmHg ABG pO2 (83-108) mmHg ABG HCO3 (21-25) mmol/L ABG Total CO2 (19-24) mmol/L ABG O2 Saturation (94-97) % ABG Base Excess mmol/L ABG Hematocrit (34.0-46.0) % Alvin Test Hemoglobin (13.0-17.5) gm/dL FiO2 % Sodium (137-145) mmol/L Potassium (3.5-5.1) mmol/L Chloride (98-107) mmol/L Carbon Dioxide (22-30) mmol/L Anion Gap mmol/L BUN (9-20) mg/dL Creatinine (0.66-1.25) mg/dL Est GFR (CKD-EPI)AfAm (>60 ml/min/1.73 sqM) Est GFR (CKD-EPI)NonAf (>60 ml/min/1.73 sqM) Glucose (74-99) mg/dL POC Glucose (mg/dL) 233 H (70-110) mg/dL POC Glu Vp Compliance ID [email or web address] Calcium (8.4-10.2) mg/dL Magnesium (1.6-2.3) mg/dL Total Bilirubin (0.2-1.3) mg/dL AST (17-59) U/L ALT (4-49) U/L Alkaline Phosphatase (38-126) U/L Troponin I (0.000-0.034) ng/mL Total Protein (6.3-8.2) g/dL Albumin (3.5-5.0) g/dL Coronavirus (PCR) (Not Detectd) 06/03/22 06/03/2222 Range/Units 09:54 09:54 10:07 WBC (3.8-10.6) k/uL RBC (4.30-5.90) m/uL Hgb (13.0-17.5) gm/dL Hct (39.0-53.0) % MCV (80.0-100.0) fL MCH (25.0-35.0) pg MCHC (31.0-37.0) g/dL RDW (11.5-15.5) % Plt Count (150-450) k/uL MPV Neutrophils % (Manual) % Lymphocytes % (Manual) % Monocytes % (Manual) % Eosinophils % (Manual) % Basophils % (Manual) % Metamyelocytes % % Neutrophils # (Manual) (1.3-7.7) k/uL Lymphocytes # (Manual) (1.0-4.8) k/uL Monocytes # (Manual) (0-1.0) k/uL Eosinophils # (Manual) (0-0.7) k/uL Basophils # (Manual) (0-0.2) k/uL Metamyelocytes # (Man) (0) k/uL Nucleated RBCs (0-0) /100 WBC Manual Slide Review Hypochromasia PT (9.0-12.0) sec INR (<1.2) APTT (22.0-30.0) sec D-Dimer (<0.60) mg/L FEU Sample Site lrad ABG pH 7.11 L* (7.35-7.45) ABG pCO2 51 H (35-45) mmHg ABG pO2 159 H (83-108) mmHg ABG HCO3 16 L (21-25) mmol/L ABG Total CO2 18 L (19-24) mmol/L ABG O2 Saturation 98.4 H (94-97) % ABG Base Excess -13.4 mmol/L ABG Hematocrit 44 (34.0-46.0) % Alvin Test Yes Hemoglobin 14.5 (13.0-17.5) gm/dL FiO2 100 % Sodium 141 (137-145) mmol/L Potassium 3.7 (3.5-5.1) mmol/L Chloride 110 H (98-107) mmol/L Carbon Dioxide 15 L (22-30) mmol/L Anion Gap 16 mmol/L BUN 17 (9-20) mg/dL Creatinine 1.00 (0.66-1.25) mg/dL Est GFR (CKD-EPI)AfAm 80 (>60 ml/min/1.73 sqM) Est GFR (CKD-EPI)NonAf 69 (>60 ml/min/1.73 sqM) Glucose 261 H (74-99) mg/dL POC Glucose (mg/dL) (70-110) mg/dL POC Glu Vp Compliance ID Calcium 7.7 L (8.4-10.2) mg/dL Magnesium 2.1 (1.6-2.3) mg/dL Total Bilirubin 0.4 (0.2-1.3) mg/dL AST 69 H (17-59) U/L ALT 40 (4-49) U/L Alkaline Phosphatase 54 (38-126) U/L Troponin I 0.278 H* (0.000-0.034) ng/mL Total Protein 5.2 L (6.3-8.2) g/dL Albumin 2.8 L (3.5-5.0) g/dL Coronavirus (PCR) (Not Detectd) 06/03/22 06/03/22 Range/Units 11:32 12:23 WBC (3.8-10.6) k/uL RBC (4.30-5.90) m/uL Hgb (13.0-17.5) gm/dL Hct (39.0-53.0) % MCV (80.0-100.0) fL MCH (25.0-35.0) pg MCHC (31.0-37.0) g/dL RDW (11.5-15.5) % Plt Count (150-450) k/uL MPV Neutrophils % (Manual) % Lymphocytes % (Manual) % Monocytes % (Manual) % Eosinophils % (Manual) % Basophils % (Manual) % Metamyelocytes % % Neutrophils # (Manual) (1.3-7.7) k/uL Lymphocytes # (Manual) (1.0-4.8) k/uL Monocytes # (Manual) (0-1.0) k/uL Eosinophils # (Manual) (0-0.7) k/uL Basophils # (Manual) (0-0.2) k/uL Metamyelocytes # (Man) (0) k/uL Nucleated RBCs (0-0) /100 WBC Manual Slide Review Hypochromasia PT (9.0-12.0) sec INR (<1.2) APTT (22.0-30.0) sec D-Dimer (<0.60) mg/L FEU Sample Site rrad ABG pH 7.10 L* (7.35-7.45) ABG pCO2 61 H (35-45) mmHg ABG pO2 55 L* (83-108) mmHg ABG HCO3 19 L (21-25) mmol/L ABG Total CO2 21 (19-24) mmol/L ABG O2 Saturation 77.2 L (94-97) % ABG Base Excess -11.0 mmol/L ABG Hematocrit 46 (34.0-46.0) % Alvin Test Yes Hemoglobin 14.9 (13.0-17.5) gm/dL FiO2 100 % Sodium (137-145) mmol/L Potassium (3.5-5.1) mmol/L Chloride (98-107) mmol/L Carbon Dioxide (22-30) mmol/L Anion Gap mmol/L BUN (9-20) mg/dL Creatinine (0.66-1.25) mg/dL Est GFR (CKD-EPI)AfAm (>60 ml/min/1.73 sqM) Est GFR (CKD-EPI)NonAf (>60 ml/min/1.73 sqM) Glucose (74-99) mg/dL POC Glucose (mg/dL) (70-110) mg/dL POC Glu Vp Compliance ID Calcium (8.4-10.2) mg/dL Magnesium (1.6-2.3) mg/dL Total Bilirubin (0.2-1.3) mg/dL AST (17-59) U/L ALT (4-49) U/L Alkaline Phosphatase (38-126) U/L Troponin I (0.000-0.034) ng/mL Total Protein (6.3-8.2) g/dL Albumin (3.5-5.0) g/dL Coronavirus (PCR) Not Detected (Not Detectd) Critical Care Time Critical Care Time: Yes Total Critical Care Time: 35 Disposition Clinical Impression: Acute respiratory failure, Cardiac arrest, Pneumonia Disposition: ADMITTED IP TO THIS [facility] Time of Disposition: 12:05
--- NOTE | 2022-06-03 10:08 | XR ---
EXAMINATION TYPE: XR chest 1V portable DATE OF EXAM: 06/03/2022 COMPARISON: Chest x-ray January 15, 2021 HISTORY: Postintubation. TECHNIQUE: Single portable frontal supine view of the chest is obtained. FINDINGS: There is new endotracheal tube terminating at aortic knob level approximately 5 cm above ca michel. There is new orogastric tube projecting below diaphragm. Surgical clips epigastric region redemonstrated. Stable cardiomegaly with atherosclerotic and ectatic thoracic aorta. Increased opacities in the bilateral lungs with relative sparing of the periphery of the lower lungs on current study. Osseous structures are intact. IMPRESSION: 1. New endotracheal and orogastric tubes satisfactory in position. 2. Stable cardiomegaly with bilateral multifocal edema and/or infiltrates. Progress study advised.
[2022-06-03 10:10] LABS: ABG Base Excess -13.4 mmol/L; ABG HCO3 16 mmol/L (21-25); ABG Hematocrit 44 % (34.0-46.0); ABG Oxygen Saturation 98.4 % (94-97); ABG PCO2 51 mmHg (35-45); ABG PO2 159 mmHg (83-108); ABG TCO2 18 mmol/L (19-24); Allen Test Performed? Yes
[2022-06-03 10:16] LABS: ABG PH 7.11 (7.35-7.45)
[2022-06-03 10:18] LABS: Albumin 2.8 g/dL (3.5-5.0); Calcium 7.7 mg/dL (8.4-10.2); Magnesium 2.1 mg/dL (1.6-2.3); Potassium 3.7 mmol/L (3.5-5.1); Total Bilirubin 0.4 mg/dL (0.2-1.3); Total Protein 5.2 g/dL (6.3-8.2)
[2022-06-03 10:21] LABS: HCT 42.2 % (39.0-53.0); HGB 13.2 gm/dL (13.0-17.5); Hypochromasia Slight; MCH 31.2 pg (25.0-35.0); MCHC 31.2 g/dL (31.0-37.0); Mean Platelet Volume 8.2; Platelet Count 151 k/uL (150-450); RBC 4.22 m/uL (4.30-5.90); RDW 13.2 % (11.5-15.5)
[2022-06-03 10:29] LABS: INR 1.1 (<1.2); Partial Thromboplastin Time 33.5 sec (22.0-30.0); Prothrombin Time 12.2 sec (9.0-12.0)
[2022-06-03 10:50] LABS: Basophils # (M) 0.18 k/uL (0-0.2); Eosinophils # (M) 0.18 k/uL (0-0.7); Metamyelocytes # (M) 0.18 k/uL (0); Metamyelocytes % 1 %; Monocytes # (M) 1.26 k/uL (0-1.0); Neutrophils # (M) 8.28 k/uL (1.3-7.7); Neutrophils % (M) 46 %; Nucleated Red Blood Cells 0 /100 WBC (0-0); Total Cells Counted 200
--- NOTE | 2022-06-03 11:08 | CT ---
EXAMINATION TYPE: CT brain wo con DATE OF EXAM: 06/03/2022 COMPARISON: None HISTORY: altered mental status CT DLP: 1099.8 mGycm Automated exposure control for dose reduction was used. FINDINGS: There is mild generalized degenerative change with faint periventricular low attenuation which is non specific but most available remote ischemic white matter change. Focal area of low attenuation involv ing the left basal ganglia compatible with remote linear infarct. No acute hemorrhage or mass effect. No midline shift. Craniocervical junction maintained. Sella turcica has a normal appearance. Orbits are symmetric. Walsh ges of mild chronic sinusitis and nasal septal deviation noted. Calvarium intact. IMPRESSION: DEGENERATIVE AND NONSPECIFIC WHITE MATTER CHANGES MOST TYPICAL OF REMOTE ISCHEMIA. NO ACUTE HEMORRHAG E OR MASS CORRELATE WITH MRI CLINICALLY WARRANTED
--- NOTE | 2022-06-03 11:15 | CT ---
EXAMINATION TYPE: CT chest angio for PE DATE OF EXAM: 06/03/2022 COMPARISON: None HISTORY: D-dimer 19, Cardiac arrest CT DLP: 285.9 mGycm Automated exposure control for dose reduction was used. CONTRAST: CT Chest for pulmonary embolism performed with without and with IV Contrast, patient injected with 10 0 ml mL of Isovue 370. FINDINGS: LUNGS: Multifocal bilateral airspace disease. No sizable pleural effusion. No pneumothorax. MEDIASTINUM: There is satisfactory enhancement of the pulmonary artery and its branches, there is no CT evidence for pulmonary embolism. There are no greater than 1 cm hilar or mediastinal lymph nodes. Coronary artery calcification noted. ET and NG tube noted. Aorta normal caliber with atherosclerot ic changes. OTHER: Hypertrophic and degenerative change of the spine. Indeterminate renal lesions most likely on the basis of simple cysts but should be correlated with ultrasound given the limitation of the exam. Small vertebral body hemangioma midthoracic spine. IMPRESSION: 1. No diagnostic evidence of pulmonary embolism. 2. Diffuse multifocal bilateral airspace consolidation. Lack of pleural fluid favors diffuse multifoc al pneumonia or aspiration pneumonia over pulmonary edema. Atypical pneumonia in the differential jerome gnosis. ARDS not excluded.
[2022-06-03 11:48] LABS: ABG HCO3 19 mmol/L (21-25); ABG Hematocrit 46 % (34.0-46.0); ABG Oxygen Saturation 77.2 % (94-97); ABG PCO2 61 mmHg (35-45); ABG TCO2 21 mmol/L (19-24); Allen Test Performed? Yes
[2022-06-03 11:50] LABS: ABG PO2 55 mmHg (83-108)
[2022-06-03] MEDS ORDERED: VANCOMYCIN IV PER PHARMACY 1 EACH MISC MISCELLANE PRN (12:02)
[2022-06-03] MEDS ORDERED: VANCOMYCIN 1,000 MG in SODIUM CHLORIDE 0.9% 250 ML IVPB STA (12:07)
[2022-06-03] MEDS ORDERED: NALOXONE 0.4 MG/ML 1 ML VIAL IV PRN (12:20)
[2022-06-03] MEDS ORDERED: propofoL 100 ML IV ONE (12:57)
[2022-06-03 13:09] LABS: Glucose,Whole Blood 153 mg/dL (70-110)
[2022-06-03 14:22] LABS: ABG Base Excess -5.4 mmol/L; ABG HCO3 20 mmol/L (21-25); ABG Hematocrit 47 % (34.0-46.0); ABG PCO2 37 mmHg (35-45); ABG PH 7.35 (7.35-7.45); ABG PO2 329 mmHg (83-108); ABG TCO2 21 mmol/L (19-24); Allen Test Performed? Yes
--- NOTE | 2022-06-03 15:05 | P.CNPUL ---
History of Present Illness Consult date: 06/03/22 Chief complaint: cardiac arrest History of present illness: 86-year-old male patient, healthy with a previous history of COVID 19 infections occurred in 2020 from which the patient recovers. The patient's collapsed at home and the patient was found to be completely unresponsive by the . The patient is of origin and there is a communication barrier between us and the family. Based on the EMS sheets, the patient was completely unresponsive. The patient was intubated on the scene. He was given epinephrine 2, CPR and he was in PEA . The EMS arrived to the scene on 8:48 AM. Initial blood pressure recording was done on 9:14 AM where the blood pressure was reported to be 56/27 with a pulse of 50. The cardiac rhythm was sinus bradycardia. The patient got transferred to our emergency department following that. According to the records, the return of spontaneous circulation was on 90 9 AM. When the patient another arrived to the emergency department, he had a good pulse without being paced and the blood pressure was within normal limits. His initial blood pressure was 112/96 and his pulse ox was 98%. The patient was given EKG that showed a right bundle branch block pattern, a wide-complex rhythm, probably with underlying first-degree AV block. Cardiology was involved and the Certified Veterinary Technician was not activated. CAT scan of the brain showed acute abnormalities. CAT scan of the chest showed no evidence of any pulmonary embolism there was diffuse bilateral pulmonary infiltrates in the mid and lower lung [place] bilaterally consistent with pneumonia over CHF. The patient was given a dose of Rocephin and vancomycin. The patient got moved to the intensive care unit. At this point in time, the patient is completely unresponsive. He is having some occasional myoclonic jerks. His temperature is currently at 98. He is on propofol which is running at 10 mcg/kg per minute. He is not following any verbal commands or painful stimulation. Whenever stimulated, he goes into episodic myoclonic jerks. The patient on a mechanical ventilator on assist control mode at a rate of 14 with a tidal volume of 400 and FiO2 of 80% with aspirin. The blood. His were noted. Initial blood gas that was obtainedIn the hospital showed a pH of 7.11 with a pCO2 of 51 and pO2 of 59 and this was on FiO2 of 100%. Subsequently, there was some difficulty in accepting the patient emergency. He was placed on a PEEP of 10 and repeat blood gases showed a pH of 7.4 with a pCO2 of 21 and pO2 of 55. Most recent blood gases after arrival to the ICU shows a pH of 7.34 with a pCO2 of 36 and pO2 of 329. Initial lactic acid level is at 6.0. Cognitive testing was negative. Electrolytes show a component of an underlying metabolic acidosis with a gap of 16 and a bicarb level of 15. Glucose is 261. Sodium is at 141. Electrocardiogram 13.2 and elevated count of 151. Coagulation profile within normal limits. D-dimer was a t 19.2. Initial troponin was 0.278. CAT scan of the brain showed chronic atrophy, without any acute abnormalities. No evidence of any hemorrhage and the findings were essentially nonspecific with white matter changes typical of remote ischemia. Review of Systems ROS unobtainable: due to endotracheal tube Past Medical History Past Medical History: No Reported History Additional Past Medical History / Comment(s): COVID 2020 History of Any Multi-Drug Resistant Organisms: None Reported Past Surgical History: No Surgical Hx Reported Past Psychological History: Unable to Obtain Smoking Status: Never smoker Past Alcohol Use History: None Reported Past Drug Use History: None Reported - Past Family History Mother History Unknown: Yes Medications and Allergies Home Medications Medication Instructions Recorded Confirmed Type Latanoprost/Pf [Latanoprost 0.005% 1 drop BOTH EYES HS 01/13/21 06/03/22 History Eye Drop] Ascorbic Acid [Vitamin C] 1,000 mg PO DAILY 06/03/22 06/03/22 History Cholecalciferol [Vitamin D3 (25 25 mcg PO DAILY 06/03/22 06/03/22 History Mcg = 1000 Iu)] Cyanocobalamin (Vitamin B-12) 1,000 mcg PO DAILY 06/03/22 06/03/22 History [Vitamin B-12] Melatonin 5 mg PO HS 06/03/22 06/03/22 History Multivit-Min/FA/Lycopen/Lutein 1 tab PO DAILY 06/03/22 06/03/22 History [Centrum Silver Tablet] Zinc 50 mg PO DAILY 06/03/22 06/03/22 History Allergies Allergy/AdvReac Type Severity Reaction Status Date / Time No Known Allergies Allergy Verified 06/03/22 12:19 Physical Exam Vitals: Vital Signs Temp Pulse Resp BP Pulse Ox FiO2 09/01/22 14:26 80 06/03/22 13:16 100 06/03/22 13:01 100 06/03/22 12:53 92 30 H 120/62 100 06/03/22 12:29 106 H 35 H 104/61 95 06/03/22 11:52 141 H 39 H 123/73 84 L 06/03/22 11:26 144 H 36 H 120/82 83 L 06/03/22 11:14 107 H 46 H 118/82 94 L 06/03/22 11:06 100 41 H 124/55 96 06/03/22 10:57 98.0 F 91 23 109/56 96 06/03/22 10:32 110 H 26 H 110/64 99 06/03/22 10:01 102 H 26 H 94 L 06/03/22 09:56 97 22 151/71 96 06/03/22 09:44 78 22 161/140 98 100 06/03/22 09:35 50 L 18 112/96 98 Intake and Output 06/02/22 06/03/22 06/03/22 22:59 06:59 14:59 Intake Total 0.953 Balance 0.953 Intake: Intake, IV Titration 0.953 Amount propofoL 1,000 mg In 0.953 Empty Bag 1 bag @ 5 MCG/ KG/MIN 1.633 mls/hr IV . Q24H [facility] Rx#:[id number] Other: Weight 54.431 kg Intubated on a mechanical ventilator. The patient is having occasional myoclonic jerks. Orogastric and orotracheal tube are both in place. Head exam was generally normal. There was no scleral icterus or corneal arcus. Mucous membranes were moist. Neck was supple and without jugular venous distension, thyromegaly, or carotid bruits. Carotids were easily palpable bilaterally. There was no adenopathy. Lungs are diminished and the patient has some limited bibasilar crackles Cardiac exam revealed the PMI to be normally situated and sized. The rhythm was regular and no extrasystoles were noted during several minutes of auscultation. The first and second heart sounds were normal and physiologic splitting of the second heart sound was noted. There were no murmurs, rubs, clicks, or gallops. Abdominal exam revealed normal bowel sounds. The abdomen was soft, non-tender, and without masses, organomegaly, or appreciable enlargement of the abdominal aorta. Examination of the extremities revealed easily palpable radial, femoral and pedal pulses. There was no cyanosis, clubbing or edema. Examination of the skin revealed no evidence of significant rashes, suspicious appearing nevi or other concerning lesions. Neurologically the patient is completely unresponsive. The patient's left eye is completely opacified because of a previous cataract or coma. Right eye is around 3 mm in size, sluggishly reactive to light. No nystagmus. No preferential gaze. He has a positive cough and gag. He has occasional myoclonic jerks. Reflexes are diminished over extremities and motor and sensory function cannot be obtained. No facial asymmetry. Sensory functions cannot be obtained. Gait cannot be assessed. Results - Laboratory Findings CBC and BMP: 06/03/22 09:54 06/03/22 09:54 ABG ABG pH 7.35 (7.35-7.45) 06/03/22 14:20 ABG pCO2 37 mmHg (35-45) 06/03/22 14:20 ABG pO2 329 mmHg (83-108) H 06/03/22 14:20 ABG O2 Saturation 100.0 % (94-97) H 06/03/22 14:20 PT/INR, D-dimer PT 12.2 sec (9.0-12.0) H 06/03/22 09:54 INR 1.1 (<1.2) 06/03/22 09:54 D-Dimer 19.24 mg/L FEU (<0.60) H 06/03/22 09:54 Abnormal lab findings: Abnormal Labs 06/03/22 06/03/22 06/03/22 09:40 09:54 09:54 WBC 18.0 H RBC 4.22 L Neutrophils # (Manual) 8.28 H Lymphocytes # (Manual) 8.10 H Monocytes # (Manual) 1.26 H Metamyelocytes # (Man) 0.18 H PT 12.2 H APTT 33.5 H D-Dimer 19.24 H ABG pH ABG pCO2 ABG pO2 ABG HCO3 ABG Total CO2 ABG O2 Saturation ABG Hematocrit Chloride Carbon Dioxide Glucose POC Glucose (mg/dL) 233 H Plasma Lactic Acid Carlos Alberto Calcium AST Troponin I Total Protein Albumin 06/03/22 06/03/22 06/03/22 09:54 09:54 10:07 WBC RBC Neutrophils # (Manual) Lymphocytes # (Manual) Monocytes # (Manual) Metamyelocytes # (Man) PT APTT D-Dimer ABG pH 7.11 L* ABG pCO2 51 H ABG pO2 159 H ABG HCO3 16 L ABG Total CO2 18 L ABG O2 Saturation 98.4 H ABG Hematocrit Chloride 110 H Carbon Dioxide 15 L Glucose 261 H POC Glucose (mg/dL) Plasma Lactic Acid Carlos Alberto Calcium 7.7 L AST 69 H Troponin I 0.278 H* Total Protein 5.2 L Albumin 2.8 L 06/03/22 06/03/22 06/03/22 11:32 13:08 13:10 WBC RBC Neutrophils # (Manual) Lymphocytes # (Manual) Monocytes # (Manual) Metamyelocytes # (Man) PT APTT D-Dimer ABG pH 7.10 L* ABG pCO2 61 H ABG pO2 55 L* ABG HCO3 19 L ABG Total CO2 ABG O2 Saturation 77.2 L ABG Hematocrit Chloride Carbon Dioxide Glucose POC Glucose (mg/dL) 153 H Plasma Lactic Acid Carlos Alberto 6.0 H* Calcium AST Troponin I Total Protein Albumin 06/03/22 14:20 WBC RBC Neutrophils # (Manual) Lymphocytes # (Manual) Monocytes # (Manual) Metamyelocytes # (Man) PT APTT D-Dimer ABG pH ABG pCO2 ABG pO2 329 H ABG HCO3 20 L ABG Total CO2 ABG O2 Saturation 100.0 H ABG Hematocrit 47 H Chloride Carbon Dioxide Glucose POC Glucose (mg/dL) Plasma Lactic Acid Carlos Alberto Calcium AST Troponin I Total Protein Albumin - Diagnostic Findings Chest x-ray: image reviewed CT scan - chest: image reviewed Assessment and Plan Plan: Acute cardiac arrest. The patient was in a PEA rhythm at a time of initial evaluation. EMS arrived to the scene at 8:48 AM and there are reports of return of spontaneous circulation at 9:09 AM. The blood pressure however was quite low and subsequent blood pressures were quite low. The patient arrived to the burst department with a normal sinus rhythm with a first-degree AV block and a RBBB pattern. Initial troponin is slightly elevated. The patient is currently on no pressors. Acute hypoxic respiratory failure currently intubated on a mechanical ventilator Diffuse bilateral pulmonary infiltrates in the mid and lower lung [place] bilaterally, rule out aspiration, rule out interstitial/pulmonary edema versus pneumonia Anoxic encephalopathy, clinically suspected due to cardiac arrest Episodic myoclonic jerks probably a representation of anoxic encephalopathy. lactic acidosis with initial lactic acid level of 6 due to cardiac arrest Acute leukocytosis, likely reactive Acute Hyperglycemic, likely reactive Plan Continue ventilator support. Keep the same ventilator settings and drop the FiO2 to maintain saturation above 90%. The current FiO2 is at 80% The patient is sedated with propofol and gradually titrate the dose to maintain sedated with mechanical ventilator No need for pressors at this point in time Proceed with an immediate echocardiogram Cardiology consultation Serial troponins and LA check cpk IV fluids in the form of normal saline at the rate of 75 mL an hour Neurology consultation Do a stat EEG Start the patient on IV Keppra 1 g every 12 hours suspecting underlying seizure activity Repeat CAT scan within 24 hours. Initial CAT scan showed nonspecific chronic white matter changes Cover the patient with a combination of Zosyn and vancomycin Sputum Gram stain and culture Blood culture Pro-calcitonin level Monitor fever pattern keep the temperature less than 97 post cardiac arrest IV Protonix Lovenox 40 mg subcu for DVT prophylaxis We'll continue to follow Time with Patient: Greater than 30
[2022-06-03] MEDS ORDERED: levETIRAcetam IV 1,000 MG in SALINE 1 100ML.BAG IVPB STA (15:07)
--- NOTE | 2022-06-03 15:09 | P.PCN ---
Date of Procedure: 06/03/22 Preoperative Diagnosis: cardiac arrest, PEA Postoperative Diagnosis: cardiac arrest, PEA Procedure(s) Performed: Central line Arterial line Anesthesia: local Surgeon: Dennis Nation Estimated Blood Loss (ml): 0 Pathology: other Condition: critical Disposition: ICU Operative Findings: Central line Indication: Hemodynamic monitoring/Intravenous access. A time-out was completed verifying correct patient, procedure, site, positioning, and implant(s) or special equipment if applicable. The patient was placed in a dependent position appropriate for central line placement based on the vein to be cannulated. The patients left shoulder was prepped and draped in sterile fashion. 1% Lidocaine was used to anesthetize the surrounding skin area. A triple lumen 9F Cordis catheter was introduced into the subclavian vein using Seldinger technique. The catheter was threaded smoothly over the guide wire and appropriate blood return was obtained. Each lumen of the catheter was evacuated of air and flushed with sterile saline. The catheter was then sutured in place to the skin and a sterile dressing applied. Perfusion to the extremity distal to the point of catheter insertion was checked and found to be adequate. The patient tolerated the procedure well and there were no complications. Arterial line Indication: Hemodynamic monitoring. A time-out was completed verifying correct patient, procedure, site, positioning, and implant(s) or special equipment if applicable. Allens test was performed to ensure adequate perfusion. The patients right wrist was prepped and draped in sterile fashion. 1% Lidocaine was used to anesthetize the area. An 18G Arrow arterial line was introduced into the radial artery. The catheter was threaded over the guide wire and the needle was removed with appropriate pulsatile blood return. Blood loss was minimal. The catheter was then sutured in place to the skin and a sterile dressing applied. Perfusion to the extremity distal to the point of catheter insertion was checked and found to be adequate. The patient tolerated the procedure well and there were no complications.
[2022-06-03] MEDS ORDERED: ACETAMINOPHEN TAB 325 MG TAB PO PRN (15:10)
[2022-06-03] MEDS ORDERED: ENOXAPARIN 40 MG/0.4 ML SYRINGE SQ SCH (15:15)
[2022-06-03] MEDS ORDERED: LORazepam 1 MG/0.5 ML VIAL IV STA (15:20)
[2022-06-03] MEDS: SODIUM CHLORIDE 0.9% 1,000 ML IV SCH (15:25)
--- NOTE | 2022-06-03 15:25 | XR ---
EXAMINATION TYPE: XR chest 1V portable DATE OF EXAM: 06/03/2022 CLINICAL HISTORY: Central line placement. TECHNIQUE: Single AP portable upright view of the chest is obtained. COMPARISON: Chest x-ray from since earlier today and older studies FINDINGS: New left subclavian central venous catheter terminating in SVC. No left-sided pneumothorax is seen. Interval slight retraction of the endotracheal tube to inferior margin of the clavicles. St able appearing orogastric tube. Surgical clips epigastric region redemonstrated. Mild cardiomegaly with atherosclerotic thoracic aort a redemonstrated. Increased opacities in the bilateral lungs is redemonstrated. No significant interv al change. Osseous structures are intact. IMPRESSION: As above.
--- NOTE | 2022-06-03 16:19 | P.CNNES ---
History of Present Illness Consult date: 06/03/22 Requesting physician: Dennis Nation Reason for Consult: seizure History of Present Illness: This is an 86-year-old gentleman who presented to our facility after patient was found unresponsive by his at home. History is obtained from medical record. Neurology is consulted for seizure. Per the nurse, the patient notified his that is not feeling well today at 6am and unknown downtime. Per the EMS sheet, they arrive to the scene at 8:48 AM today the patient was completely unresponsive in [place] and CPR was performed and the patient received that 2 Epinephrine. As a result he was intubated at the scene. Return of spontaneous circulation was around 9:09AM today. His initial vitals at 9:14am today blood p ressure that was reported 56/27 with a pulse of 50. He was in sinus bradycardia. He was transferred to our emergency department. According to the ICU nurse, ED nursed notified her that patient was having whole body shaking and received 2mg Ativan but then received another 6mg Ativan because he was biting on vent, restless. In the ICU is seems the patient is having some myoclonic jerk and as a result the ordered 4mg Ativan as well as a loading dose of IV Keppra 1 g once. Of note is seems the patient has a previous history of COVID-19 infection that occurred in 2020 and the patient recovered at that time. Some of the workup in the ED consisted of: Initial vital signs in our ED at 9:35 AM his blood pressure of 112/96, heart rate of 50, respiratory of 18, pulse ox of 98% on 100%. Initial temperature is 98.0 Fahrenheit axillary. Initial white blood cell is 18.0 slightly neutrophilic. Initial POC glucose is 233 troponin is 0.278, the plasma lactic acid venous 6.0, calcium is 7.7, magnesium 2.1, AST of 69 ALT of 40. Coronavirus patient are not detected CT of the head is reported as degenerative and nonspecific white matter changes most typical of remote ischemia. No acute hemorrhage or mass effect with MRI as clinically warranted. I personally reviewed the CT of the head and I don't feel there is any acute subacute ischemia there is no intracranial hemorrhage, there is no mass effect. EKG is reported is on surgeon regular rhythm. Right bundle branch block. Inferior myocardial infarction, probably old, anterior myocardial infarction of indeterminate age, ST depression consider some endocardial injury. Review of Systems Review of system is limited but the per positive and negative as per HPI. Past Medical History Past Medical History: No Reported History Additional Past Medical History / Comment(s): COVID 2020 History of Any Multi-Drug Resistant Organisms: None Reported Past Surgical History: No Surgical Hx Reported Past Psychological History: Unable to Obtain Smoking Status: Never smoker Past Alcohol Use History: None Reported Past Drug Use History: None Reported - Past Family History Mother History Unknown: Yes Medications and Allergies Home Medications Medication Instructions Recorded Confirmed Type Latanoprost/Pf [Latanoprost 0.005% 1 drop BOTH EYES HS 01/13/21 06/03/22 History Eye Drop] Ascorbic Acid [Vitamin C] 1,000 mg PO DAILY 06/03/22 06/03/22 History Cholecalciferol [Vitamin D3 (25 25 mcg PO DAILY 06/03/22 06/03/22 History Mcg = 1000 Iu)] Cyanocobalamin (Vitamin B-12) 1,000 mcg PO DAILY 06/03/22 06/03/22 History [Vitamin B-12] Melatonin 5 mg PO HS 06/03/22 06/03/22 History Multivit-Min/FA/Lycopen/Lutein 1 tab PO DAILY 06/03/22 06/03/22 History [Centrum Silver Tablet] Zinc 50 mg PO DAILY 06/03/22 06/03/22 History Allergies Allergy/AdvReac Type Severity Reaction Status Date / Time No Known Allergies Allergy Verified 06/03/22 12:19 Physical Examination - Vital Signs Vital Signs: Vital Signs Temp Pulse Resp BP Pulse Ox FiO2 06/03/22 14:26 80 06/03/22 13:16 100 06/03/22 13:01 100 06/03/22 12:53 92 30 H 120/62 100 06/03/22 12:29 106 H 35 H 104/61 95 06/03/22 11:52 141 H 39 H 123/73 84 L 06/03/22 11:26 144 H 36 H 120/82 83 L 06/03/22 11:14 107 H 46 H 118/82 94 L 06/03/22 11:06 100 41 H 124/55 96 06/03/22 10:57 98.0 F 91 23 109/56 96 06/03/22 10:32 110 H 26 H 110/64 99 06/03/22 10:01 102 H 26 H 94 L 06/03/22 09:56 97 22 151/71 96 06/03/22 09:44 78 22 161/140 98 100 06/03/22 09:35 50 L 18 112/96 98 Intake and Output 06/03/22 06/03/22 06/03/22 06:59 14:59 22:59 Intake Total 0.953 Balance 0.953 Intake: Intake, IV Titration 0.953 Amount propofoL 1,000 mg In 0.953 Empty Bag 1 bag @ 5 MCG/ KG/MIN 1.633 mls/hr IV . Q24H [facility] Rx#:[id number] Other: Weight 54.431 kg GENERAL: The patient is lying in bed and does not appear in acute distress. CHEST: The heart rate is regular rate rhythm. No murmurs to auscultation. LUNG: Clear to auscultation bilaterally no wheezing noted throughout. Not labored breathing. Intubated on ventilator. ABDOMEN/GI: Bowel sounds present in all 4 quadrants. No tenderness to palpation throughout. NEUROLOGICAL: Limited because of his condition and received total of 12mg Ativan and is on IV Propofol 20mcg/kg/min (earlier was at 40mcg) Higher mental function: Patient is comatose. GCS6 (E1, VT1, M4). No responsive or following commands. Cranial nerves: I had to manually open his eyes. Primary gaze is midline. The right pupil is pinpoint and hard to appreciate light reactivity. While the left eye is opacified that is grayish is coloration. Negative corneal, occulocephalic. No facial weakness. No suctioning he grimaces face equally. Is breathing over the vent. Motor: The strength is hard to assess. No spontaneous movement. Minimally withdrawal over the right upper to painful stimuli. Decrease tone throughout. Normal bulk. Cerebellum: Unable to assess. Sensation: He seems to withdrawal over the right upper to painful stimuli. Reflexes (right/left): 1+ throughout except left knee is 0. Plantars are mute bilaterally. Results - Laboratory Findings CBC and BMP: 06/03/22 09:54 06/03/22 09:54 Abnormal Lab Findings: Abnormal Labs 06/03/22 06/03/22 06/03/22 09:40 09:54 09:54 WBC 18.0 H RBC 4.22 L Neutrophils # (Manual) 8.28 H Lymphocytes # (Manual) 8.10 H Monocytes # (Manual) 1.26 H Metamyelocytes # (Man) 0.18 H PT 12.2 H APTT 33.5 H D-Dimer 19.24 H ABG pH ABG pCO2 ABG pO2 ABG HCO3 ABG Total CO2 ABG O2 Saturation ABG Hematocrit Chloride Carbon Dioxide Glucose POC Glucose (mg/dL) 233 H Plasma Lactic Acid Carlos Alberto Calcium AST Troponin I Total Protein Albumin 06/03/22 06/03/22 06/03/22 09:54 09:54 10:07 WBC RBC Neutrophils # (Manual) Lymphocytes # (Manual) Monocytes # (Manual) Metamyelocytes # (Man) PT APTT D-Dimer ABG pH 7.11 L* ABG pCO2 51 H ABG pO2 159 H ABG HCO3 16 L ABG Total CO2 18 L ABG O2 Saturation 98.4 H ABG Hematocrit Chloride 110 H Carbon Dioxide 15 L Glucose 261 H POC Glucose (mg/dL) Plasma Lactic Acid Carlos Alberto Calcium 7.7 L AST 69 H Troponin I 0.278 H* Total Protein 5.2 L Albumin 2.8 L 06/03/22 06/03/22 06/03/22 11:32 13:08 13:10 WBC RBC Neutrophils # (Manual) Lymphocytes # (Manual) Monocytes # (Manual) Metamyelocytes # (Man) PT APTT D-Dimer ABG pH 7.10 L* ABG pCO2 61 H ABG pO2 55 L* ABG HCO3 19 L ABG Total CO2 ABG O2 Saturation 77.2 L ABG Hematocrit Chloride Carbon Dioxide Glucose POC Glucose (mg/dL) 153 H Plasma Lactic Acid Carlos Alberto 6.0 H* Calcium AST Troponin I Total Protein Albumin 06/03/22 14:20 WBC RBC Neutrophils # (Manual) Lymphocytes # (Manual) Monocytes # (Manual) Metamyelocytes # (Man) PT APTT D-Dimer ABG pH ABG pCO2 ABG pO2 329 H ABG HCO3 20 L ABG Total CO2 ABG O2 Saturation 100.0 H ABG Hematocrit 47 H Chloride Carbon Dioxide Glucose POC Glucose (mg/dL) Plasma Lactic Acid Carlos Alberto Calcium AST Troponin I Total Protein Albumin Assessment and Plan Assessment: Acute Cardiopulmonary arrest. Initial ryhytm reported is PEA. He felt off around 6am today. Unknown down time but he was reported to be found down by EMS around 8:48AM. 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 Some component due to sedation (12mg Ativan) and on IV propofol. 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 I started the patient on Keppra 1000mg every 12 hours. If patient has any further seizure, can give another bolus of IV Ativan 1gm and increase to 1500mg every 12 hours with PRN Versed 5mg. If continues to seizure then recommend Depakote 1000mg IV loading with 500mg every 12 hours IV and if continues go up on IV propofol and start IV Versed Drip. Stat EEG is ordered and pending I agree with the ICU team of getting a repeat CAT scan within 24 hour. 2D echo is ordered and pending. Cardiology team is consulted Please avoid any hypotensive episodes. We'll defer the rest of the medical management to the primary and ICU team The patient condition is very critical. The plan is discussed with the patient's primary attending and ICU nurses. Thank for the consultation. Neo Monet M.D. Neuro-hospitalist Time with Patient: Greater than 30
[2022-06-03 16:52] LABS: Troponin I 15.1 ng/mL (0.000-0.034)
[2022-06-03 16:53] LABS: Creatine Kinase MB 14.8 ng/mL (0.0-2.4)
[2022-06-03] MEDS: PIPERACILLIN-TAZOBACTAM 3.375 GM in SODIUM CHLORIDE 0.9% 100 ML IVPB SCH (16:57)
[2022-06-03 19:10] LABS: Appearance,Urine Clear (Clear); Bacteria,Urine Rare /hpf; Bilirubin,Urine Negative (Negative); Blood,Urine Moderate (Negative); Color,Urine Yellow; Glucose,Urine (UA) Negative (Negative); Ketones,Urine 2+ (Negative); Leukocyte Esterase,Urine Small (Negative); Mucus,Urine Occasional /hpf; Nitrite,Urine Negative (Negative); PH, Urine 5.5 (5.0-8.0); Protein,Urine Trace (Negative); RBC,Urine 20 /hpf (0-5); Urobilinogen,Urine <2.0 mg/dL (<2.0); WBC,Urine 9 /hpf (0-5)
[2022-06-03 19:11] LABS: Specific Gravity,Urine 1.048 (1.001-1.035)
[2022-06-03] MEDS: PANTOPRAZOLE 40 MG/10 ML VIAL IVP SCH (20:41)
[2022-06-03] MEDS: levETIRAcetam IV 1,000 MG in SALINE 1 100ML.BAG IVPB SCH (20:41)
[2022-06-03] MEDS: CHLORHEXIDINE GLUCONATE 15 ML CUP MUCOUS MEM SCH (20:41)
[2022-06-03] MEDS: NOREPINEPHRINE 4 MG in SODIUM CHLORIDE 0.9% 250 ML IV SCH (20:49)
[2022-06-03] MEDS ORDERED: levETIRAcetam IV 750 MG in SODIUM CHLORIDE 0.9% 100 ML IVPB SCH (21:00)
[2022-06-03] MEDS ORDERED: HEPARIN SODIUM 1,000 UN/ML (10ML VL) IV PRN (23:16)
[2022-06-03] MEDS ORDERED: HEPARIN SODIUM 1,000 UN/ML (10ML VL) IV ONE (23:16)
[2022-06-04 00:14] LABS: Basophils % (A) 0 %; Eosinophils # (A) 0.1 k/uL (0-0.7); Eosinophils % (A) 0 %; HCT 42.9 % (39.0-53.0); HGB 13.6 gm/dL (13.0-17.5); Lymphocytes # (A) 0.9 k/uL (1.0-4.8); Lymphocytes % (A) 4 %; MCH 30.4 pg (25.0-35.0); MCHC 31.8 g/dL (31.0-37.0); MCV 95.5 fL (80.0-100.0); Mean Platelet Volume 7.9; Monocytes # (A) 0.8 k/uL (0-1.0); Monocytes % (A) 4 %; Neutrophils % (A) 91 %; Platelet Count 165 k/uL (150-450); RBC 4.49 m/uL (4.30-5.90); RDW 13.2 % (11.5-15.5); WBC 21.9 k/uL (3.8-10.6)
[2022-06-04 00:16] LABS: Glucose,Whole Blood 164 mg/dL (70-110)
[2022-06-04] MEDS: INSULIN ASPART (NovoLOG) 100 UNIT/ML VIAL SQ SCH ×5 (00:27→23:39)
[2022-06-04] MEDS: PIPERACILLIN-TAZOBACTAM 3.375 GM in SODIUM CHLORIDE 0.9% 100 ML IVPB SCH ×4 (00:28→23:38)
[2022-06-04 00:41] LABS: INR 1.1 (<1.2); Partial Thromboplastin Time 36.9 sec (22.0-30.0); Prothrombin Time 12.1 sec (9.0-12.0)
[2022-06-04] MEDS: HEPARIN SOD,PORK IN 0.45% NACL 25,000 UNIT in 0.45% NACL 1 250ML.BAG IV SCH ×2 (01:02→23:37)
--- NOTE | 2022-06-04 02:00 | EEG ---
ELECTROENCEPHALOGRAM REPORT DATE OF SERVICE: 06/03/2022 CLINICAL HISTORY: This is an 86-year-old gentleman, who presents out of hospital cardiac arrest. The patient is having myoclonic jerks as a result. The video EEG is obtained to evaluate for seizure epileptiform activity. RELEVANT MEDICATION: Ativan and he received a total of 12 mg, IV propofol. EEG TYPE: A routine 21 channel EEG is performed with video using the 10/20 electrode placement system. DESCRIPTION: The patient is intubated on a ventilator. Regarding background, there is no appreciable cerebral activity over bilateral hemisphere. Interictal and ictal; there is occasional generalized polyspike with slow waves lasting between 1 to 3 seconds. ACTIVATION PROCEDURE: Photic stimulation and hyperventilation are not performed. CLINICAL INTERPRETATION: This is an abnormal routine EEG. The generalized polyspike increases risk for myoclonic seizure. Otherwise, the background is suppressed over bilateral hemisphere, and one of the possibilities is due to medication effect (high dose of Ativan and on IV Propofol) and another possibility is due to anoxia from cardiopulmonary arrest. There is no seizure detected during this study. Clinical correlation is recommended. MMCR / IJN: [id number] / MTDD
--- NOTE | 2022-06-04 03:03 | HP ---
HISTORY AND PHYSICAL CHIEF COMPLAINT: Cardiac arrest. HISTORY OF PRESENT ILLNESS: This is an 86-year-old gentleman with a past medical history of COVID-19 in 2020 from which the patient apparently recovered, had a collapse at home. The patient was completely found to be unresponsive and the patient had a prolonged CPR. Multiple medications were given. The patient continues to be unresponsive. The patient is mechanically intubated and the patient admitted to ICU for continued monitoring at this time. EEG is being done and Dr. Monet is also following the patient as well as Dr. Nation. Diffuse pulmonary infiltrates also noted. The labs were reviewed. PAST MEDICAL HISTORY: History of COVID-19 as mentioned earlier. HOME MEDICATIONS: Reviewed include melatonin, dose and rest of medication noted. ALLERGIES: None. FAMILY HISTORY: Could not be taken. SOCIAL HISTORY: Could not be taken. REVIEW OF SYSTEMS: Could not be taken. PHYSICAL EXAMINATION: VITAL SIGNS: Pulse is 92, blood pressure 120/62, respiration rate . HEENT: Conjunctivae normal. NECK: No JVD. CARDIOVASCULAR: S1, S2 muffled. RESPIRATIONS: Breath sounds diminished at the bases. No rhonchi. ABDOMEN: Soft, nontender. LEGS: No edema. NERVOUS SYSTEM: Unresponsive. SKIN: No ulcer, rash, or bleeding. JOINTS: No active deforming arthropathy. LABS: Reviewed. WBC 18. The rest of the labs are reviewed. ASSESSMENT: 1. Acute cardiac arrest. 2. Possible anoxic encephalopathy. 3. Acute hypoxic respiratory failure, on mechanical ventilation. 4. Possible bilateral pneumonia. 5. Myoclonic jerks. 6. Multiple lab abnormalities. RECOMMENDATIONS AND DISCUSSION: This is an 86-year-old gentleman who presented with multiple complex medical issues. The patient is on mechanical ventilation 80% FiO2. I would recommend to continue the current medications. Closely follow with Neurology, Dr. Monet and as well as Dr. Nation. The EEG has been taken at this time. Final report is pending. Otherwise, once again the prognosis is extremely guarded. We will initiate empiric antibiotics and mechanical ventilation. The patient is on Zosyn, Vanco and further recommendations to follow. MMODL / IJN: [id number] /
[2022-06-04 04:52] LABS: Basophils # (A) 0.1 k/uL (0-0.2); Basophils % (A) 0 %; Eosinophils % (A) 0 %; HCT 42.2 % (39.0-53.0); HGB 13.4 gm/dL (13.0-17.5); Lymphocytes # (A) 1.1 k/uL (1.0-4.8); Lymphocytes % (A) 5 %; MCHC 31.6 g/dL (31.0-37.0); Mean Platelet Volume 8.1; Monocytes # (A) 0.8 k/uL (0-1.0); Monocytes % (A) 4 %; Neutrophils # (A) 19.4 k/uL (1.3-7.7); Neutrophils % (A) 91 %; Platelet Count 153 k/uL (150-450); RBC 4.45 m/uL (4.30-5.90); RDW 13.3 % (11.5-15.5); WBC 21.4 k/uL (3.8-10.6)
[2022-06-04] MEDS: SODIUM CHLORIDE 0.9% 1,000 ML IV SCH (05:01)
[2022-06-04 05:03] LABS: Albumin 3.1 g/dL (3.5-5.0); Calcium 7.9 mg/dL (8.4-10.2); Total Bilirubin 1.2 mg/dL (0.2-1.3); Total Protein 5.8 g/dL (6.3-8.2)
[2022-06-04 05:40] LABS: Glucose,Whole Blood 169 mg/dL (70-110)
[2022-06-04] MEDS ORDERED: Magnesium Replacement Protocol 1 EACH MISC MISCELLANE PRN (06:01)
[2022-06-04 06:05] LABS: ABG Base Excess -2.6 mmol/L; ABG Glucose Whole Blood 179 mg/dL (75-99); ABG HCO3 22 mmol/L (21-25); ABG Hematocrit 40 % (34.0-46.0); ABG Ionized Calcium 4.4 mg/dL (4.5-5.3); ABG Lactic Acid Whole Blood 1.7 mmol/L (0.5-1.6); ABG Oxygen Saturation 99.1 % (94-97); ABG PCO2 37 mmHg (35-45); ABG PH 7.38 (7.35-7.45); ABG PO2 167 mmHg (83-108); ABG Potassium Whole Blood 4.3 mmol/L (3.4-4.5); ABG Sodium Whole Blood 138 mmol/L (135-146); ABG TCO2 23 mmol/L (19-24); Allen Test Performed? Yes
[2022-06-04] MEDS: MAGNESIUM SULFATE-D5W PMX 1 GM in DEXTROSE/WATER 1 100ML.BAG IVPB SCH ×2 (06:06→08:38)
--- NOTE | 2022-06-04 07:03 | P.CRDCN ---
History of Present Illness History of present illness: HISTORY OF PRESENTING ILLNESS This is a pleasant 86-year-old male past medical history of mild cardiomyopathy, left bundle branch block, moderate regurgitation, moderate mitral regurgitation, occipital neuralgia, prior eye surgery. He follows in the office with Dr. José. We have been asked to see in consultation for PEA. Patient was brought to the ER via EMS secondary to being found unresponsive episode. Patient seen in the ICU and is sedated on mechanical ventilation. Apparently patient was found unresponsive by his around 0830. EMS arrived and patient was noted to be unresponsive, was intubated on the scene. He was found to be in PEA and completed 2 rounds of CPR, received epinephrine x 2, and patient achieved ROSC around 9:00am. He was hypotensive with BP 56/27, Hr in the 50s. In route, patient was bradycardia and was paced in the ambulance. On arrival to ER, EKG w as performed and revealed sinus HR 70s, first degree AV block right bundle branch block. ABG revealed pH of 7.11 with a pCO2 of 51 and pO2 of 59 and this was on FiO2 of 100%. Patient became tachycardic, repeat EKG reveals sinus tachycardia with LBBB. His D-dimer was noted to be elevated at 19.2. CTA revealed diffuse multifocal bilateral airspace consolidation, no evidence of pulmonary embolism. He was given IV ceftriaxone and IV vancomycin in the ER and transferred to ICU. DIAGNOSTICS * CT brain chronic atrophy, without any acute abnormalities. No evidence of any hemorrhage and the findings were essentially nonspecific with white matter changes typical of remote ischemia. * Laboratory reviewed, WBC 18, hemoglobin 13.2, platelets 151, d-dimer 19.2, lactate 6.0, sodium 1 4100 past 3.7, BUN 17, serum creatinine 1.0, magnesium 2.1, troponin 0.27, Covid Negative * Echocardiogram in the office 12/12/2021 revealed an EF of 4550 %, moderate concentric LVH, moderate aortic regurgitation, moderate mitral regurgitation, mild tricuspid regurgitation * Dobutamine Stress Echo test in the office 10/10/2020 was negative for stress- induced ischemia, EF 55% REVIEW OF SYSTEMS At the time of my exam: Unable to obtain accurate review of systems secondary to sedation and mechanical ventilation PHYSICAL EXAMINATION Blood pressure 120/62 HR 92, on mechanical ventilation CONSTITUTIONAL: No apparent distress. HEENT: Head is normocephalic. Mucous membranes of the mouth are moist. No JVD. CHEST EXAMINATION: Lungs are diminished, crackles bilaterally to auscultation. HEART EXAMINATION: Regular rate and rhythm. S1, S2 heard. ABDOMEN: Soft, nontender. Positive bowel sounds. EXTREMITIES: 2+ peripheral pulses, no lower extremity edema NEUROLOGIC EXAMINATION: Patient is sedated and on mechanical ventilation ASSESSMENT PEA arrest s/p 2 round of CPR with ROSC Acute hypoxic respiratory failure requiring intubation and mechanical ventilation Diffuse multifocal bilateral infiltrates Lactic acidosis Elevated troponin, secondary to above History of mild cardiomyopathy History of left bundle branch block Moderate mitral and aortic regurgitation History of occipital neuralgia PLAN Obtain 2D echocardiogram and doppler study to assess cardiac structure and function. IV heparin Trend troponins, lactate level IV antibiotics started in ER Further recommendations based on clinical course and evaluation by Dr. Munoz Nurse practitioner note has been reviewed by physician. Signing provider agrees with the documented findings, assessment, and plan of care. Past Medical History Past Medical History: No Reported History History of Any Multi-Drug Resistant Organisms: None Reported Past Surgical History: No Surgical Hx Reported Past Psychological History: Unable to Obtain Smoking Status: Never smoker Past Alcohol Use History: None Reported Past Drug Use History: None Reported - Past Family History Mother History Unknown: Yes Medications and Allergies Home Medications Medication Instructions Recorded Confirmed Type Latanoprost/Pf [Latanoprost 0.005% 1 drop BOTH EYES HS 01/13/21 06/03/22 History Eye Drop] Ascorbic Acid [Vitamin C] 1,000 mg PO DAILY 06/03/22 06/03/22 History Cholecalciferol [Vitamin D3 (25 25 mcg PO DAILY 06/03/22 06/03/22 History Mcg = 1000 Iu)] Cyanocobalamin (Vitamin B-12) 1,000 mcg PO DAILY 06/03/22 06/03/22 History [Vitamin B-12] Melatonin 5 mg PO HS 06/03/22 06/03/22 History Multivit-Min/FA/Lycopen/Lutein 1 tab PO DAILY 06/03/22 06/03/22 History [Centrum Silver Tablet] Zinc 50 mg PO DAILY 06/03/22 06/03/22 History Allergies Allergy/AdvReac Type Severity Reaction Status Date / Time No Known Allergies Allergy Verified 06/03/22 12:19 Physical Exam Vitals: Vital Signs Temp Pulse Resp BP Pulse Ox FiO2 06/03/22 13:01 100 06/03/22 12:53 92 30 H 120/62 100 06/03/22 12:29 106 H 35 H 104/61 95 06/03/22 11:52 141 H 39 H 123/73 84 L 06/03/22 11:26 144 H 36 H 120/82 83 L 06/03/22 11:14 107 H 46 H 118/82 94 L 06/03/22 11:06 100 41 H 124/55 96 06/03/22 10:57 98.0 F 91 23 109/56 96 06/03/22 10:32 110 H 26 H 110/64 99 06/03/22 10:01 102 H 26 H 94 L 06/03/22 09:56 97 22 151/71 96 06/03/22 09:44 78 22 161/140 98 100 06/03/22 09:35 50 L 18 112/96 98 Intake and Output 06/02/22 06/03/22 06/03/22 22:59 06:59 14:59 Other: Weight 54.431 kg Results 06/04/22 04:30 06/04/22 04:30 Cardiac Enzymes 06/03/22 06/03/22 Range/Units 09:54 09:54 AST 69 H (17-59) U/L Troponin I 0.278 H* (0.000-0.034) ng/mL Coagulation 06/03/22 Range/Units 09:54 PT 12.2 H (9.0-12.0) sec APTT 33.5 H (22.0-30.0) sec CBC 06/03/22 Range/Units 09:54 WBC 18.0 H (3.8-10.6) k/uL RBC 4.22 L (4.30-5.90) m/uL Hgb 13.2 (13.0-17.5) gm/dL Hct 42.2 (39.0-53.0) % Plt Count 151 (150-450) k/uL Comprehensive Metabolic Panel 06/03/22 Range/Units 09:54 Sodium 141 (137-145) mmol/L Potassium 3.7 (3.5-5.1) mmol/L Chloride 110 H (98-107) mmol/L Carbon Dioxide 15 L (22-30) mmol/L BUN 17 (9-20) mg/dL Creatinine 1.00 (0.66-1.25) mg/dL Glucose 261 H (74-99) mg/dL Calcium 7.7 L (8.4-10.2) mg/dL AST 69 H (17-59) U/L ALT 40 (4-49) U/L Alkaline Phosphatase 54 (38-126) U/L Total Protein 5.2 L (6.3-8.2) g/dL Albumin 2.8 L (3.5-5.0) g/dL Current Medications Generic Name Dose Route Start Last Admin Trade Name Freq PRN Reason Stop Dose Admin Chlorhexidine Gluconate 15 ml 06/03/22 21:00 Chlorhexidine Gluconate 15 Ml Cup MUCOUS MEM BID JUSTICE Vancomycin HCl 1,000 mg/ 250 mls @ 125 mls/hr 06/03/22 12:07 Sodium Chloride IVPB 06/03/22 14:06 ONCE STA Propofol 1,000 mg/ IV Solution 100 mls @ 1.633 mls/hr 06/03/22 13:00 IV .Q24H JUSTICE Protocol 5 MCG/KG/MIN Miscellaneous Information 1 each 06/03/22 12:02 Vancomycin Iv Per Pharmacy 1 Each Misc MISCELLANE DIRECTED PRN Per Protocol Protocol Naloxone HCl 0.2 mg 06/03/22 12:20 Naloxone 0.4 Mg/Ml 1 Ml Vial IV Q2M PRN Opioid Reversal Intake and Output 06/02/22 06/03/22 06/03/22 22:59 06:59 14:59 Other: Weight 54.431 kg Patient Weight 06/04/22 06:59 Weight 54.431 kg 06/03/22 09:54 06/03/22 09:54
--- NOTE | 2022-06-04 07:31 | CA ---
Transthoracic Echo Report Name: Narinder Burkett Age: 86 Gender: M : 1935 Exam Date: 06/03/2022 12:45 Exam Location: [facility] Ht (in): 64 Wt (lb): 120 Ordering Physician: Joss Liriano MD Attending/Referring Phys: Industrial Servicer Kristi Carroll RDCS Procedure CPT: Indications: Respiratory Failure Cardiac Hx: Technical Quality: Fair Contrast 1: Total Dose (mL): Contrast 2: Total Dose (mL): MEASUREMENTS (Male / Female) Normal Values 2D ECHO LV Diastolic Diameter PLAX 4.0 cm 4.2 - 5.9 / 3.9 - 5.3 cm LV Systolic Diameter PLAX 3.3 cm IVS Diastolic Thickness 1.2 cm 0.6 - 1.0 / 0.6 - 0.9 cm LVPW Diastolic Thickness 1.5 cm 0.6 - 1.0 / 0.6 - 0.9 cm LV Relative Wall Thickness 0.7 DOPPLER AV Peak Velocity 101.5 cm/s AV Peak Gradient 4.1 mmHg LVOT Peak Velocity 63.1 cm/s LVOT Peak Gradient 1.6 mmHg TR Peak Velocity 233.3 cm/s TR Peak Gradient 21.8 mmHg Right Ventricular Systolic Press 26.4 mmHg FINDINGS Left Ventricle Moderate to severe LVH. Left ventricular ejection fraction is estimated at 25 %. Global left ventricular hypokinesis. Right Ventricle Normal right ventricular size. Right Atrium Normal right atrial size. Left Atrium Left atrial size at the upper limits of normal. Mitral Valve Moderate mitral annular calcification. Jhod-nw-[id number] mitral regurgitation. Aortic Valve [id number]-hertsctt aortic regurgitation. Thickened aortic valve without stenosis. Aortic valve sclerosis. Tricuspid Valve Mild tricuspid regurgitation. Pulmonic Valve Trace pulmonic regurgitation. Pericardium No pericardial effusion. Aorta Normal size aortic root and proximal ascending aorta. CONCLUSIONS Moderate to severe LVH with septal and posterior wall diastolic thickness 1.6- 1.8 cm. Left ventricular EF 25% Mild to moderate aortic regurgitation Mild to moderate mitral regurgitation RVSP 26 Previewed by: Dr. Jose José DO (Electronically Signed) Final Date: 04 June 2022 07:30
--- NOTE | 2022-06-04 07:31 | XR ---
EXAMINATION TYPE: XR chest 1V portable DATE OF EXAM: 06/04/2022 COMPARISON: 06/03/2022 INDICATION: Tube placement TECHNIQUE: Single frontal view of the chest is obtained. FINDINGS: The heart size is normal. The pulmonary vasculature is prominent. There is a patchy infiltrate in the right upper lung field. Diffuse infiltrates in the left lung. Cor relate for volume overload and pulmonary edema. Pneumonia should be considered. Endotracheal tube tip is above the monique. Nasogastric tube transverses the thorax. Left central veno us catheter tip is within the superior vena cava region. IMPRESSION: 1. Diffuse bilateral infiltrates greater on the left slightly improved over the interval. Correlate f or pulmonary edema. Differential diagnosis is discussed above. 2. Lines and catheters discussed above.
[2022-06-04] MEDS ORDERED: FUROSEMIDE 10 MG/ML 4 ML VIAL IV STA (08:35)
[2022-06-04] MEDS: PANTOPRAZOLE 40 MG/10 ML VIAL IVP SCH ×2 (08:39→20:59)
[2022-06-04] MEDS: levETIRAcetam IV 1,000 MG in SALINE 1 100ML.BAG IVPB SCH ×2 (08:52→21:32)
[2022-06-04] MEDS ORDERED: VANCOMYCIN 1,000 MG in SODIUM CHLORIDE 0.9% 250 ML IVPB SCH (09:00)
[2022-06-04] MEDS: CHLORHEXIDINE GLUCONATE 15 ML CUP MUCOUS MEM SCH ×2 (09:35→20:59)
--- NOTE | 2022-06-04 09:42 | P.PN ---
Subjective Progress Note Date: 06/04/22 The patient is an 86-year-old female who follows in the office with Dr. José. The patient presented to the hospital [facility] after being found unresponsive by his . He EMS arrived, where the patient was found to be in PEA arrest. The patient received ROSC after 2 rounds of CPR and 2 doses of epinephrine. Initial computed tomography scan of the chest showed no evidence of pulmonary embolism despite elevated d-dimer. There was diffuse multifocal bilateral airspace disease, indicating multifocal pneumonia. Echocardiogram shows LV function at 25% with global hypokinesis and moderate to severe LVH The patient was examined in the ICU. He is currently mechanically ventilated and is not responsive to stimuli. GENERAL: No acute distress. NECK: Supple without JVD or thyromegaly. LUNGS: Breath sounds diminished to auscultation bilaterally. Respiration equal and unlabored. No wheezes, rales or rhonchi. HEART: Regular rate and rhythm without murmurs, rubs or gallops. S1 and S2 heard. EXTREMITIES: No edema. No clubbing or cyanosis. Peripheral pulses intact and strong. VITALS: Blood pressure 117/51, pulse 87, respiratory rate 28, SpO2 95% of 50% FiO2 TELEMETRY: Sinus rhythm overnight LABS: WBC 21.4, hemoglobin 13.4, hematocrit 42.2, platelets 153, sodium 138, potassium 4.0, BUN 27, creatinine 0.95, mag 1.8, AST 178, ALT 59 IMPRESSION: PEA arrest s/p 2 round of CPR with ROSC Acute hypoxic respiratory failure requiring intubation and mechanical ventilation Diffuse multifocal bilateral infiltrates Lactic acidosis Elevated troponin, secondary to above Cardiomyopathy with global hypokinesis, likely secondary to arrest History of mild cardiomyopathy History of left bundle branch block Moderate mitral and aortic regurgitation History of occipital neuralgia PLAN: No further recommendations from the cardiac standpoint If the patient makes an improvement in his respiratory status, coronary angiogram may be considered I am dictating on behalf of Dr Edmond Munoz's history/physical and assessment/plan. Objective - Vital Signs Vital signs: Vital Signs Temp 97.9 F 06/04/22 08:00 Pulse 87 06/04/22 08:00 Resp 28 H 06/04/22 08:00 BP 98/60 06/04/22 00:00 Pulse Ox 98 06/04/22 08:00 FiO2 50 06/04/22 07:39 Intake & Output 06/03/22 06/04/22 06/04/22 18:59 06:59 18:59 Intake Total 753.365 6982.758 403.880 Output Total 580 510 60 Balance 232.999 504.758 343.880 Weight 54.431 kg 53.9 kg Intake: IV 790 961 156 0.9 425 75 Piperacillin-Tazobactam 3 100 25 .375 gm In Sodium Chloride 0.9% 100 ml @ 25 mls/hr IVPB Q8HR [facility] Rx# :[id number] Sodium Chloride 0.9% 1, 825 150 000 ml @ 75 mls/hr IV . [id number] [facility] Rx#:[id number] Vancomycin 1,000 mg In 250 Sodium Chloride 0.9% 250 ml @ 125 mls/hr IVPB DAILY [facility] Rx#:[id number] pressure bags 15 36 6 Intake, IV Titration 22.999 53.758 247.880 Amount Heparin Sod,Pork in 0.45% 64.503 NaCl 25,000 unit In 0.45 % NaCl 1 250ml.bag @ 18 UNITS/KG/HR 9.798 mls/hr IV .Q24H [facility] Rx#: [id number] Norepinephrine 4 mg In 20.636 134.387 Sodium Chloride 0.9% 250 ml @ 0.05 MCG/KG/MIN 10. 369 mls/hr IV .Q24H [facility] Rx#:[id number] propofoL 1,000 mg In 22.999 33.122 48.99 Empty Bag 1 bag @ 5 MCG/ KG/MIN 1.633 mls/hr IV . Q24H [facility] Rx#:[id number] Output: Urine 580 510 60 Other: Voiding Method Indwelling Catheter Indwelling Catheter # Bowel Movements 1 ABP, PAP, CO, CI - Last Documented Arterial Blood Pressure 117/51 - Labs CBC & Chem 7: 06/04/22 04:30 06/04/22 04:30 Labs: Abnormal Lab Results - Last 24 Hours (Table) 06/03/22 06/03/22 06/03/22 Range/Units 09:40 09:54 09:54 WBC 18.0 H (3.8-10.6) k/uL RBC 4.22 L (4.30-5.90) m/uL Neutrophils # (1.3-7.7) k/uL Neutrophils # (Manual) 8.28 H (1.3-7.7) k/uL Lymphocytes # (1.0-4.8) k/uL Lymphocytes # (Manual) 8.10 H (1.0-4.8) k/uL Monocytes # (Manual) 1.26 H (0-1.0) k/uL Metamyelocytes # (Man) 0.18 H (0) k/uL PT 12.2 H (9.0-12.0) sec APTT 33.5 H (22.0-30.0) sec D-Dimer 19.24 H (<0.60) mg/L FEU ABG pH (7.35-7.45) ABG pCO2 (35-45) mmHg ABG pO2 (83-108) mmHg ABG HCO3 (21-25) mmol/L ABG Total CO2 (19-24) mmol/L ABG O2 Saturation (94-97) % ABG Hematocrit (34.0-46.0) % ABG Ionized Calcium (4.5-5.3) mg/dL ABG Glucose (75-99) mg/dL ABG Lactic Acid (0.5-1.6) mmol/L Chloride (98-107) mmol/L Carbon Dioxide (22-30) mmol/L BUN (9-20) mg/dL Glucose (74-99) mg/dL POC Glucose (mg/dL) 233 H (70-110) mg/dL Plasma Lactic Acid Carlos Alberto (0.7-2.0) mmol/L Calcium (8.4-10.2) mg/dL AST (17-59) U/L ALT (4-49) U/L CK-MB (CK-2) (0.0-2.4) ng/mL Troponin I (0.000-0.034) ng/mL Total Protein (6.3-8.2) g/dL Albumin (3.5-5.0) g/dL Arterial Blood Glucose (75-99) mg/dL Ur Specific [place] (1.001-1.035) Urine Protein (Negative) Urine Ketones (Negative) Urine Blood (Negative) Ur Leukocyte Esterase (Negative) Urine RBC (0-5) /hpf Urine WBC (0-5) /hpf Urine Bacteria (None) /hpf Urine Mucus (None) /hpf 06/03/22 06/03/22 06/03/22 Range/Units 09:54 09:54 10:07 WBC (3.8-10.6) k/uL RBC (4.30-5.90) m/uL Neutrophils # (1.3-7.7) k/uL Neutrophils # (Manual) (1.3-7.7) k/uL Lymphocytes # (1.0-4.8) k/uL Lymphocytes # (Manual) (1.0-4.8) k/uL Monocytes # (Manual) (0-1.0) k/uL Metamyelocytes # (Man) (0) k/uL PT (9.0-12.0) sec APTT (22.0-30.0) sec D-Dimer (<0.60) mg/L FEU ABG pH 7.11 L* (7.35-7.45) ABG pCO2 51 H (35-45) mmHg ABG pO2 159 H (83-108) mmHg ABG HCO3 16 L (21-25) mmol/L ABG Total CO2 18 L (19-24) mmol/L ABG O2 Saturation 98.4 H (94-97) % ABG Hematocrit (34.0-46.0) % ABG Ionized Calcium (4.5-5.3) mg/dL ABG Glucose (75-99) mg/dL ABG Lactic Acid (0.5-1.6) mmol/L Chloride 110 H (98-107) mmol/L Carbon Dioxide 15 L (22-30) mmol/L BUN (9-20) mg/dL Glucose 261 H (74-99) mg/dL POC Glucose (mg/dL) (70-110) mg/dL Plasma Lactic Acid Carlos Alberto (0.7-2.0) mmol/L Calcium 7.7 L (8.4-10.2) mg/dL AST 69 H (17-59) U/L ALT (4-49) U/L CK-MB (CK-2) (0.0-2.4) ng/mL Troponin I 0.278 H* (0.000-0.034) ng/mL Total Protein 5.2 L (6.3-8.2) g/dL Albumin 2.8 L (3.5-5.0) g/dL Arterial Blood Glucose (75-99) mg/dL Ur Specific [place] (1.001-1.035) Urine Protein (Negative) Urine Ketones (Negative) Urine Blood (Negative) Ur Leukocyte Esterase (Negative) Urine RBC (0-5) /hpf Urine WBC (0-5) /hpf Urine Bacteria (None) /hpf Urine Mucus (None) /hpf 06/03/22 06/03/22 06/03/22 Range/Units 11:32 13:08 13:10 WBC (3.8-10.6) k/uL RBC (4.30-5.90) m/uL Neutrophils # (1.3-7.7) k/uL Neutrophils # (Manual) (1.3-7.7) k/uL Lymphocytes # (1.0-4.8) k/uL Lymphocytes # (Manual) (1.0-4.8) k/uL Monocytes # (Manual) (0-1.0) k/uL Metamyelocytes # (Man) (0) k/uL PT (9.0-12.0) sec APTT (22.0-30.0) sec D-Dimer (<0.60) mg/L FEU ABG pH 7.10 L* (7.35-7.45) ABG pCO2 61 H (35-45) mmHg ABG pO2 55 L* (83-108) mmHg ABG HCO3 19 L (21-25) mmol/L ABG Total CO2 (19-24) mmol/L ABG O2 Saturation 77.2 L (94-97) % ABG Hematocrit (34.0-46.0) % ABG Ionized Calcium (4.5-5.3) mg/dL ABG Glucose (75-99) mg/dL ABG Lactic Acid (0.5-1.6) mmol/L Chloride (98-107) mmol/L Carbon Dioxide (22-30) mmol/L BUN (9-20) mg/dL Glucose (74-99) mg/dL POC Glucose (mg/dL) 153 H (70-110) mg/dL Plasma Lactic Acid Carlos Alberto 6.0 H* (0.7-2.0) mmol/L Calcium (8.4-10.2) mg/dL AST (17-59) U/L ALT (4-49) U/L CK-MB (CK-2) (0.0-2.4) ng/mL Troponin I (0.000-0.034) ng/mL Total Protein (6.3-8.2) g/dL Albumin (3.5-5.0) g/dL Arterial Blood Glucose (75-99) mg/dL Ur Specific [place] (1.001-1.035) Urine Protein (Negative) Urine Ketones (Negative) Urine Blood (Negative) Ur Leukocyte Esterase (Negative) Urine RBC (0-5) /hpf Urine WBC (0-5) /hpf Urine Bacteria (None) /hpf Urine Mucus (None) /hpf 06/03/22 06/03/22 06/03/22 Range/Units 14:20 15:40 15:40 WBC (3.8-10.6) k/uL RBC (4.30-5.90) m/uL Neutrophils # (1.3-7.7) k/uL Neutrophils # (Manual) (1.3-7.7) k/uL Lymphocytes # (1.0-4.8) k/uL Lymphocytes # (Manual) (1.0-4.8) k/uL Monocytes # (Manual) (0-1.0) k/uL Metamyelocytes # (Man) (0) k/uL PT (9.0-12.0) sec APTT (22.0-30.0) sec D-Dimer (<0.60) mg/L FEU ABG pH (7.35-7.45) ABG pCO2 (35-45) mmHg ABG pO2 329 H (83-108) mmHg ABG HCO3 20 L (21-25) mmol/L ABG Total CO2 (19-24) mmol/L ABG O2 Saturation 100.0 H (94-97) % ABG Hematocrit 47 H (34.0-46.0) % ABG Ionized Calcium (4.5-5.3) mg/dL ABG Glucose (75-99) mg/dL ABG Lactic Acid (0.5-1.6) mmol/L Chloride (98-107) mmol/L Carbon Dioxide (22-30) mmol/L BUN (9-20) mg/dL Glucose (74-99) mg/dL POC Glucose (mg/dL) (70-110) mg/dL Plasma Lactic Acid Carlos Alberto 3.0 H* (0.7-2.0) mmol/L Calcium (8.4-10.2) mg/dL AST (17-59) U/L ALT (4-49) U/L CK-MB (CK-2) 14.8 H (0.0-2.4) ng/mL Troponin I 15.100 H* (0.000-0.034) ng/mL Total Protein (6.3-8.2) g/dL Albumin (3.5-5.0) g/dL Arterial Blood Glucose (75-99) mg/dL Ur Specific [place] (1.001-1.035) Urine Protein (Negative) Urine Ketones (Negative) Urine Blood (Negative) Ur Leukocyte Esterase (Negative) Urine RBC (0-5) /hpf Urine WBC (0-5) /hpf Urine Bacteria (None) /hpf Urine Mucus (None) /hpf 06/03/22 06/03/22 06/03/22 Range/Units 18:20 18:35 21:32 WBC (3.8-10.6) k/uL RBC (4.30-5.90) m/uL Neutrophils # (1.3-7.7) k/uL Neutrophils # (Manual) (1.3-7.7) k/uL Lymphocytes # (1.0-4.8) k/uL Lymphocytes # (Manual) (1.0-4.8) k/uL Monocytes # (Manual) (0-1.0) k/uL Metamyelocytes # (Man) (0) k/uL PT (9.0-12.0) sec APTT (22.0-30.0) sec D-Dimer (<0.60) mg/L FEU ABG pH (7.35-7.45) ABG pCO2 (35-45) mmHg ABG pO2 (83-108) mmHg ABG HCO3 (21-25) mmol/L ABG Total CO2 (19-24) mmol/L ABG O2 Saturation (94-97) % ABG Hematocrit (34.0-46.0) % ABG Ionized Calcium (4.5-5.3) mg/dL ABG Glucose (75-99) mg/dL ABG Lactic Acid (0.5-1.6) mmol/L Chloride (98-107) mmol/L Carbon Dioxide (22-30) mmol/L BUN (9-20) mg/dL Glucose (74-99) mg/dL POC Glucose (mg/dL) (70-110) mg/dL Plasma Lactic Acid Carlos Alberto 3.2 H* (0.7-2.0) mmol/L Calcium (8.4-10.2) mg/dL AST (17-59) U/L ALT (4-49) U/L CK-MB (CK-2) (0.0-2.4) ng/mL Troponin I 20.600 H* (0.000-0.034) ng/mL Total Protein (6.3-8.2) g/dL Albumin (3.5-5.0) g/dL Arterial Blood Glucose (75-99) mg/dL Ur Specific [place] 1.048 H (1.001-1.035) Urine Protein Trace H (Negative) Urine Ketones 2+ H (Negative) Urine Blood Moderate H (Negative) Ur Leukocyte Esterase Small H (Negative) Urine RBC 20 H (0-5) /hpf Urine WBC 9 H (0-5) /hpf Urine Bacteria Rare H (None) /hpf Urine Mucus Occasional H (None) /hpf 06/03/22 06/03/22 06/03/22 Range/Units 21:32 23:52 23:52 WBC 21.9 H (3.8-10.6) k/uL RBC (4.30-5.90) m/uL Neutrophils # 20.0 H (1.3-7.7) k/uL Neutrophils # (Manual) (1.3-7.7) k/uL Lymphocytes # 0.9 L (1.0-4.8) k/uL Lymphocytes # (Manual) (1.0-4.8) k/uL Monocytes # (Manual) (0-1.0) k/uL Metamyelocytes # (Man) (0) k/uL PT 12.1 H (9.0-12.0) sec APTT 36.9 H (22.0-30.0) sec D-Dimer (<0.60) mg/L FEU ABG pH (7.35-7.45) ABG pCO2 (35-45) mmHg ABG pO2 (83-108) mmHg ABG HCO3 (21-25) mmol/L ABG Total CO2 (19-24) mmol/L ABG O2 Saturation (94-97) % ABG Hematocrit (34.0-46.0) % ABG Ionized Calcium (4.5-5.3) mg/dL ABG Glucose (75-99) mg/dL ABG Lactic Acid (0.5-1.6) mmol/L Chloride (98-107) mmol/L Carbon Dioxide (22-30) mmol/L BUN (9-20) mg/dL Glucose (74-99) mg/dL POC Glucose (mg/dL) (70-110) mg/dL Plasma Lactic Acid Carlos Alberto 3.4 H* (0.7-2.0) mmol/L Calcium (8.4-10.2) mg/dL AST (17-59) U/L ALT (4-49) U/L CK-MB (CK-2) (0.0-2.4) ng/mL Troponin I (0.000-0.034) ng/mL Total Protein (6.3-8.2) g/dL Albumin (3.5-5.0) g/dL Arterial Blood Glucose (75-99) mg/dL Ur Specific [place] (1.001-1.035) Urine Protein (Negative) Urine Ketones (Negative) Urine Blood (Negative) Ur Leukocyte Esterase (Negative) Urine RBC (0-5) /hpf Urine WBC (0-5) /hpf Urine Bacteria (None) /hpf Urine Mucus (None) /hpf 06/04/22 06/04/22 06/04/22 Range/Units 00:15 04:30 04:30 WBC 21.4 H (3.8-10.6) k/uL RBC (4.30-5.90) m/uL Neutrophils # 19.4 H (1.3-7.7) k/uL Neutrophils # (Manual) (1.3-7.7) k/uL Lymphocytes # (1.0-4.8) k/uL Lymphocytes # (Manual) (1.0-4.8) k/uL Monocytes # (Manual) (0-1.0) k/uL Metamyelocytes # (Man) (0) k/uL PT (9.0-12.0) sec APTT (22.0-30.0) sec D-Dimer (<0.60) mg/L FEU ABG pH (7.35-7.45) ABG pCO2 (35-45) mmHg ABG pO2 (83-108) mmHg ABG HCO3 (21-25) mmol/L ABG Total CO2 (19-24) mmol/L ABG O2 Saturation (94-97) % ABG Hematocrit (34.0-46.0) % ABG Ionized Calcium (4.5-5.3) mg/dL ABG Glucose (75-99) mg/dL ABG Lactic Acid (0.5-1.6) mmol/L Chloride 109 H (98-107) mmol/L Carbon Dioxide 21 L (22-30) mmol/L BUN 27 H (9-20) mg/dL Glucose 185 H (74-99) mg/dL POC Glucose (mg/dL) 164 H (70-110) mg/dL Plasma Lactic Acid Carlos Alberto (0.7-2.0) mmol/L Calcium 7.9 L (8.4-10.2) mg/dL AST 178 H (17-59) U/L ALT 59 H (4-49) U/L CK-MB (CK-2) (0.0-2.4) ng/mL Troponin I (0.000-0.034) ng/mL Total Protein 5.8 L (6.3-8.2) g/dL Albumin 3.1 L (3.5-5.0) g/dL Arterial Blood Glucose (75-99) mg/dL Ur Specific [place] (1.001-1.035) Urine Protein (Negative) Urine Ketones (Negative) Urine Blood (Negative) Ur Leukocyte Esterase (Negative) Urine RBC (0-5) /hpf Urine WBC (0-5) /hpf Urine Bacteria (None) /hpf Urine Mucus (None) /hpf 06/04/22 06/04/22 06/04/22 Range/Units 05:39 06:01 06:45 WBC (3.8-10.6) k/uL RBC (4.30-5.90) m/uL Neutrophils # (1.3-7.7) k/uL Neutrophils # (Manual) (1.3-7.7) k/uL Lymphocytes # (1.0-4.8) k/uL Lymphocytes # (Manual) (1.0-4.8) k/uL Monocytes # (Manual) (0-1.0) k/uL Metamyelocytes # (Man) (0) k/uL PT (9.0-12.0) sec APTT >200.0 H* (22.0-30.0) sec D-Dimer (<0.60) mg/L FEU ABG pH (7.35-7.45) ABG pCO2 (35-45) mmHg ABG pO2 167 H (83-108) mmHg ABG HCO3 (21-25) mmol/L ABG Total CO2 (19-24) mmol/L ABG O2 Saturation 99.1 H (94-97) % ABG Hematocrit (34.0-46.0) % ABG Ionized Calcium 4.4 L (4.5-5.3) mg/dL ABG Glucose 179 H (75-99) mg/dL ABG Lactic Acid 1.7 H (0.5-1.6) mmol/L Chloride (98-107) mmol/L Carbon Dioxide (22-30) mmol/L BUN (9-20) mg/dL Glucose (74-99) mg/dL POC Glucose (mg/dL) 169 H (70-110) mg/dL Plasma Lactic Acid Carlos Alberto (0.7-2.0) mmol/L Calcium (8.4-10.2) mg/dL AST (17-59) U/L ALT (4-49) U/L CK-MB (CK-2) (0.0-2.4) ng/mL Troponin I (0.000-0.034) ng/mL Total Protein (6.3-8.2) g/dL Albumin (3.5-5.0) g/dL Arterial Blood Glucose 179 H (75-99) mg/dL Ur Specific [place] (1.001-1.035) Urine Protein (Negative) Urine Ketones (Negative) Urine Blood (Negative) Ur Leukocyte Esterase (Negative) Urine RBC (0-5) /hpf Urine WBC (0-5) /hpf Urine Bacteria (None) /hpf Urine Mucus (None) /hpf
[2022-06-04 12:54] LABS: Glucose,Whole Blood 141 mg/dL (70-110)
--- NOTE | 2022-06-04 13:17 | P.PN ---
Subjective Progress Note Date: 06/04/22 86-year-old male patient, healthy with a previous history of COVID 19 infections occurred in 2020 from which the patient recovers. The patient's collapsed at home and the patient was found to be completely unresponsive by the . The patient is of origin and there is a communication barrier be tween us and the family. Based on the EMS sheets, the patient was completely unresponsive. The patient was intubated on the scene. He was given epinephrine 2, CPR and he was in PEA . The EMS arrived to the scene on 8:48 AM. Initial blood pressure recording was done on 9:14 AM where the blood pressure was reported to be 56/27 with a pulse of 50. The cardiac rhythm was sinus bradycardia. The patient got transferred to our emergency department following that. According to the records, the return of spontaneous circulation was on 90 9 AM. When the patient another arrived to the emergency department, he had a good pulse without being paced and the blood pressure was within normal limits. His initial blood pressure was 112/96 and his pulse ox was 98%. The patient was given EKG that showed a right bundle branch block pattern, a wide-complex rhythm, probably with underlying first-degree AV block. Cardiology was involved and the Candy Butcher was not activated. CAT scan of the brain showed acute abnormalities. CAT scan of the chest showed no evidence of any pulmonary embolism there was diffuse bilateral pulmonary infiltrates in the mid and lower lung [place] bilaterally consistent with pneumonia over CHF. The patient was given a dose of Rocephin and vancomycin. The patient got moved to the intensive care unit. At this point in time, the patient is completely unresponsive. He is having some occasional myoclonic jerks. His temperature is currently at 98. He is on propofol which is running at 10 mcg/kg per minute. He is not following any verbal commands or painful stimulation. Whenever stimulated, he goes into episodic myoclonic jerks. The patient on a mechanical ventilator on assist control mode at a rate of 14 with a tidal volume of 400 and FiO2 of 80% with asp irin. The blood. His were noted. Initial blood gas that was obtainedIn the hospital showed a pH of 7.11 with a pCO2 of 51 and pO2 of 59 and this was on FiO2 of 100%. Subsequently, there was some difficulty in accepting the patient emergency. He was placed on a PEEP of 10 and repeat blood gases showed a pH of 7.4 with a pCO2 of 21 and pO2 of 55. Most recent blood gases after arrival to the ICU shows a pH of 7.34 with a pCO2 of 36 and pO2 of 329. Initial lactic acid level is at 6.0. Cognitive testing was negative. Electrolytes show a component of an underlying metabolic acidosis with a gap of 16 and a bicarb level of 15. Glucose is 261. Sodium is at 141. Electrocardiogram 13.2 and elevated count of 151. Coagulation profile within normal limits. D-dimer was at 19.2. Initial troponin was 0.278. CAT scan of the brain showed chronic atrophy, without any acute abnormalities. No evidence of any hemorrhage and the findings were essentially nonspecific with white matter changes typical of remote ischemia. 06/04/2022, I'm seeing the patient for a follow-up. The patient remains intubated on a mechanical ventilator. Neurologically, the patient is not having any myoclonic jerks. The patient was given a total of 12 mg of Ativan yesterday in addition to propofol and Keppra. Since then, the patient underwent an EEG and there was no evidence of any seizure activity. Neurology on the case and the repeat EEG and a CAT scan of the brain will be done today. Meanwhile, the susana cuevas remains intubated on mechanical ventilator. The patient is on propofol running at 20 mg/kg per minute. The patient on normal saline at the rate of 75 mL an hour and the patient remains on norepinephrine at 0.08 mcg/kg per minute. The patient's lactic acid level is down to 1.6. Troponin was initially negative later on came up to 15 and to 20 consistent with acute non-ST segment elevation myocardial infarction. Echo was done and the patient has an ejection fraction of 25%. Remains on a mechanical ventilator on assist control mode at the rate of 14 with a tidal volume of 400 and FiO2 of 50% with a PEEP of 5. The pH is 7.38 with a pCO2 of 37 and pO2 167. The echoes a 24 with hemoglobin 13.4 and a platelet count of 153. Sodium is at 130s with a potassium level of 01/05/2009 bicarb of 21 BUN is 27 and creatinine is 0.9. The chest x-ray showing diffuse bilateral pulmonary infiltrates consistent with acute pulmonary edema. The patient is afebrile. The patient is producing adequate amount of urine output at this point in time. The patient also is on IV heparin for now. The patient is also on IV Zosyn as an empiric antibiotic coverage. Objective - Vital Signs Vital signs: Vital Signs Temp 100.0 F H 06/04/22 12:00 Pulse 94 06/04/22 12:00 Resp 24 06/04/22 12:00 BP 98/60 06/04/22 00:00 Pulse Ox 97 06/04/22 12:00 FiO2 40 06/04/22 11:30 Intake & Output 06/03/22 06/04/22 06/04/22 18:59 06:59 18:59 Intake Total 051.925 5688.758 720.235 Output Total 580 510 965 Balance 232.999 504.758 -244.765 Weight 54.431 kg 53.9 kg 53.9 kg Intake: IV 790 961 468 0.9 425 75 Piperacillin-Tazobactam 3 100 25 .375 gm In Sodium Chloride 0.9% 100 ml @ 25 mls/hr IVPB Q8HR [facility] Rx# :[id number] Sodium Chloride 0.9% 1, 825 450 000 ml @ 75 mls/hr IV . [id number] [facility] Rx#:[id number] Vancomycin 1,000 mg In 250 Sodium Chloride 0.9% 250 ml @ 125 mls/hr IVPB DAILY [facility] Rx#:[id number] pressure bags 15 36 18 Intake, IV Titration 22.999 53.758 252.235 Amount Heparin Sod,Pork in 0.45% 64.503 NaCl 25,000 unit In 0.45 % NaCl 1 250ml.bag @ 18 UNITS/KG/HR 9.798 mls/hr IV .Q24H [facility] Rx#: [id number] Norepinephrine 4 mg In 20.636 134.387 Sodium Chloride 0.9% 250 ml @ 0.05 MCG/KG/MIN 10. 369 mls/hr IV .Q24H [facility] Rx#:[id number] propofoL 1,000 mg In 22.999 33.122 53.345 Empty Bag 1 bag @ 5 MCG/ KG/MIN 1.633 mls/hr IV . Q24H [facility] Rx#:[id number] Output: Urine 580 510 965 Other: Voiding Method Indwelling Catheter Indwelling Catheter # Bowel Movements 1 ABP, PAP, CO, CI - Last Documented Arterial Blood Pressure 118/55 - Exam Intubated on a mechanical ventilator. The patient is showing no seizure activity.. Orogastric and orotracheal tube are both in place. Head exam was generally normal. There was no scleral icterus or corneal arcus. Mucous membranes were moist. Neck was supple and without jugular venous distension, thyromegaly, or carotid bruits. Carotids were easily palpable bilaterally. There was no adenopathy. Lungs are diminished and the patient has some limited bibasilar crackles Cardiac exam revealed the PMI to be normally situated and sized. The rhythm was regular and no extrasystoles were noted during several minutes of auscultation. The first and second heart sounds were normal and physiologic splitting of the second heart sound was noted. There were no murmurs, rubs, clicks, or gallops. Abdominal exam revealed normal bowel sounds. The abdomen was soft, non-tender, and without masses, organomegaly, or appreciable enlargement of the abdominal aorta. Examination of the extremities revealed easily palpable radial, femoral and pedal pulses. There was no cyanosis, clubbing or edema. Examination of the skin revealed no evidence of significant rashes, suspicious appearing nevi or other concerning lesions. Neurologically the patient is completely unresponsive. The patient's left eye is completely opacified because of a previous cataract or coma. Right eye is around 3 mm in size, sluggishly reactive to light. No nystagmus. No preferential gaze. He has a positive cough and gag. He has occasional myoclonic jerks. Reflexes are diminished over extremities and motor and sensory function cannot be obtained. No facial asymmetry. Sensory functions cannot be obtained. Gait cannot be assessed. - Labs CBC & Chem 7: 06/04/22 04:30 06/04/22 04:30 Labs: Abnormal Lab Results - Last 24 Hours (Table) 06/03/22 06/03/22 06/03/22 Range/Units 13:10 14:20 15:40 WBC (3.8-10.6) k/uL Neutrophils # (1.3-7.7) k/uL Lymphocytes # (1.0-4.8) k/uL PT (9.0-12.0) sec APTT (22.0-30.0) sec ABG pO2 329 H (83-108) mmHg ABG HCO3 20 L (21-25) mmol/L ABG O2 Saturation 100.0 H (94-97) % ABG Hematocrit 47 H (34.0-46.0) % ABG Ionized Calcium (4.5-5.3) mg/dL ABG Glucose (75-99) mg/dL ABG Lactic Acid (0.5-1.6) mmol/L Chloride (98-107) mmol/L Carbon Dioxide (22-30) mmol/L BUN (9-20) mg/dL Glucose (74-99) mg/dL POC Glucose (mg/dL) (70-110) mg/dL Plasma Lactic Acid Carlos Alberto 6.0 H* 3.0 H* (0.7-2.0) mmol/L Calcium (8.4-10.2) mg/dL AST (17-59) U/L ALT (4-49) U/L CK-MB (CK-2) (0.0-2.4) ng/mL Troponin I (0.000-0.034) ng/mL Total Protein (6.3-8.2) g/dL Albumin (3.5-5.0) g/dL Procalcitonin (0.02-0.09) ng/mL Arterial Blood Glucose (75-99) mg/dL Ur Specific Banner (1.001-1.035) Urine Protein (Negative) Urine Ketones (Negative) Urine Blood (Negative) Ur Leukocyte Esterase (Negative) Urine RBC (0-5) /hpf Urine WBC (0-5) /hpf Urine Bacteria (None) /hpf Urine Mucus (None) /hpf 06/03/22 06/03/22 06/03/22 Range/Units 15:40 18:20 18:35 WBC (3.8-10.6) k/uL Neutrophils # (1.3-7.7) k/uL Lymphocytes # (1.0-4.8) k/uL PT (9.0-12.0) sec APTT (22.0-30.0) sec ABG pO2 (83-108) mmHg ABG HCO3 (21-25) mmol/L ABG O2 Saturation (94-97) % ABG Hematocrit (34.0-46.0) % ABG Ionized Calcium (4.5-5.3) mg/dL ABG Glucose (75-99) mg/dL ABG Lactic Acid (0.5-1.6) mmol/L Chloride (98-107) mmol/L Carbon Dioxide (22-30) mmol/L BUN (9-20) mg/dL Glucose (74-99) mg/dL POC Glucose (mg/dL) (70-110) mg/dL Plasma Lactic Acid Carlos Alberto 3.2 H* (0.7-2.0) mmol/L Calcium (8.4-10.2) mg/dL AST (17-59) U/L ALT (4-49) U/L CK-MB (CK-2) 14.8 H (0.0-2.4) ng/mL Troponin I 15.100 H* (0.000-0.034) ng/mL Total Protein (6.3-8.2) g/dL Albumin (3.5-5.0) g/dL Procalcitonin (0.02-0.09) ng/mL Arterial Blood Glucose (75-99) mg/dL Ur Specific Banner 1.048 H (1.001-1.035) Urine Protein Trace H (Negative) Urine Ketones 2+ H (Negative) Urine Blood Moderate H (Negative) Ur Leukocyte Esterase Small H (Negative) Urine RBC 20 H (0-5) /hpf Urine WBC 9 H (0-5) /hpf Urine Bacteria Rare H (None) /hpf Urine Mucus Occasional H (None) /hpf 06/03/22 06/03/22 06/03/22 Range/Units 21:32 21:32 21:32 WBC (3.8-10.6) k/uL Neutrophils # (1.3-7.7) k/uL Lymphocytes # (1.0-4.8) k/uL PT (9.0-12.0) sec APTT (22.0-30.0) sec ABG pO2 (83-108) mmHg ABG HCO3 (21-25) mmol/L ABG O2 Saturation (94-97) % ABG Hematocrit (34.0-46.0) % ABG Ionized Calcium (4.5-5.3) mg/dL ABG Glucose (75-99) mg/dL ABG Lactic Acid (0.5-1.6) mmol/L Chloride (98-107) mmol/L Carbon Dioxide (22-30) mmol/L BUN (9-20) mg/dL Glucose (74-99) mg/dL POC Glucose (mg/dL) (70-110) mg/dL Plasma Lactic Acid Carlos Alberto 3.4 H* (0.7-2.0) mmol/L Calcium (8.4-10.2) mg/dL AST (17-59) U/L ALT (4-49) U/L CK-MB (CK-2) (0.0-2.4) ng/mL Troponin I 20.600 H* (0.000-0.034) ng/mL Total Protein (6.3-8.2) g/dL Albumin (3.5-5.0) g/dL Procalcitonin 4.05 H (0.02-0.09) ng/mL Arterial Blood Glucose (75-99) mg/dL Ur Specific Banner (1.001-1.035) Urine Protein (Negative) Urine Ketones (Negative) Urine Blood (Negative) Ur Leukocyte Esterase (Negative) Urine RBC (0-5) /hpf Urine WBC (0-5) /hpf Urine Bacteria (None) /hpf Urine Mucus (None) /hpf 06/03/22 06/03/22 06/04/22 Range/Units 23:52 23:52 00:15 WBC 21.9 H (3.8-10.6) k/uL Neutrophils # 20.0 H (1.3-7.7) k/uL Lymphocytes # 0.9 L (1.0-4.8) k/uL PT 12.1 H (9.0-12.0) sec APTT 36.9 H (22.0-30.0) sec ABG pO2 (83-108) mmHg ABG HCO3 (21-25) mmol/L ABG O2 Saturation (94-97) % ABG Hematocrit (34.0-46.0) % ABG Ionized Calcium (4.5-5.3) mg/dL ABG Glucose (75-99) mg/dL ABG Lactic Acid (0.5-1.6) mmol/L Chloride (98-107) mmol/L Carbon Dioxide (22-30) mmol/L BUN (9-20) mg/dL Glucose (74-99) mg/dL POC Glucose (mg/dL) 164 H (70-110) mg/dL Plasma Lactic Acid Carlos Alberto (0.7-2.0) mmol/L Calcium (8.4-10.2) mg/dL AST (17-59) U/L ALT (4-49) U/L CK-MB (CK-2) (0.0-2.4) ng/mL Troponin I (0.000-0.034) ng/mL Total Protein (6.3-8.2) g/dL Albumin (3.5-5.0) g/dL Procalcitonin (0.02-0.09) ng/mL Arterial Blood Glucose (75-99) mg/dL Ur Specific Banner (1.001-1.035) Urine Protein (Negative) Urine Ketones (Negative) Urine Blood (Negative) Ur Leukocyte Esterase (Negative) Urine RBC (0-5) /hpf Urine WBC (0-5) /hpf Urine Bacteria (None) /hpf Urine Mucus (None) /hpf 06/04/22 06/04/22 06/04/22 Range/Units 04:30 04:30 05:39 WBC 21.4 H (3.8-10.6) k/uL Neutrophils # 19.4 H (1.3-7.7) k/uL Lymphocytes # (1.0-4.8) k/uL PT (9.0-12.0) sec APTT (22.0-30.0) sec ABG pO2 (83-108) mmHg ABG HCO3 (21-25) mmol/L ABG O2 Saturation (94-97) % ABG Hematocrit (34.0-46.0) % ABG Ionized Calcium (4.5-5.3) mg/dL ABG Glucose (75-99) mg/dL ABG Lactic Acid (0.5-1.6) mmol/L Chloride 109 H (98-107) mmol/L Carbon Dioxide 21 L (22-30) mmol/L BUN 27 H (9-20) mg/dL Glucose 185 H (74-99) mg/dL POC Glucose (mg/dL) 169 H (70-110) mg/dL Plasma Lactic Acid Carlos Alberto (0.7-2.0) mmol/L Calcium 7.9 L (8.4-10.2) mg/dL AST 178 H (17-59) U/L ALT 59 H (4-49) U/L CK-MB (CK-2) (0.0-2.4) ng/mL Troponin I (0.000-0.034) ng/mL Total Protein 5.8 L (6.3-8.2) g/dL Albumin 3.1 L (3.5-5.0) g/dL Procalcitonin (0.02-0.09) ng/mL Arterial Blood Glucose (75-99) mg/dL Ur Specific Banner (1.001-1.035) Urine Protein (Negative) Urine Ketones (Negative) Urine Blood (Negative) Ur Leukocyte Esterase (Negative) Urine RBC (0-5) /hpf Urine WBC (0-5) /hpf Urine Bacteria (None) /hpf Urine Mucus (None) /hpf 06/04/22 06/04/22 06/04/22 Range/Units 06:01 06:45 12:52 WBC (3.8-10.6) k/uL Neutrophils # (1.3-7.7) k/uL Lymphocytes # (1.0-4.8) k/uL PT (9.0-12.0) sec APTT >200.0 H* (22.0-30.0) sec ABG pO2 167 H (83-108) mmHg ABG HCO3 (21-25) mmol/L ABG O2 Saturation 99.1 H (94-97) % ABG Hematocrit (34.0-46.0) % ABG Ionized Calcium 4.4 L (4.5-5.3) mg/dL ABG Glucose 179 H (75-99) mg/dL ABG Lactic Acid 1.7 H (0.5-1.6) mmol/L Chloride (98-107) mmol/L Carbon Dioxide (22-30) mmol/L BUN (9-20) mg/dL Glucose (74-99) mg/dL POC Glucose (mg/dL) 141 H (70-110) mg/dL Plasma Lactic Acid Carlos Alberto (0.7-2.0) mmol/L Calcium (8.4-10.2) mg/dL AST (17-59) U/L ALT (4-49) U/L CK-MB (CK-2) (0.0-2.4) ng/mL Troponin I (0.000-0.034) ng/mL Total Protein (6.3-8.2) g/dL Albumin (3.5-5.0) g/dL Procalcitonin (0.02-0.09) ng/mL Arterial Blood Glucose 179 H (75-99) mg/dL Ur Specific Banner (1.001-1.035) Urine Protein (Negative) Urine Ketones (Negative) Urine Blood (Negative) Ur Leukocyte Esterase (Negative) Urine RBC (0-5) /hpf Urine WBC (0-5) /hpf Urine Bacteria (None) /hpf Urine Mucus (None) /hpf Microbiology - Last 24 Hours (Table) 06/04/22 00:45 Sputum Culture - Preliminary Sputum Assessment and Plan Plan: Acute cardiac arrest most likely secondary to an acute non-ST segment elevation myocardial infarction. The patient's severe cardiomyopathy with ejection fraction of 25%. Troponin peaked at 20. The patient is currently on IV heparin. The patient on norepinephrine for blood pressure support. Note that the patient was in a PEA rhythm at a time of initial evaluation. EMS arrived to the scene at 8:48 AM and there are reports of return of spontaneous circulation at 9:09 AM. The blood pressure however was quite low and subsequent blood pressures were quite low. The patient arrived to the burst department with a normal sinus rhythm with a first-degree AV block and a RBBB pattern. 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 lactic acidosis with initial lactic acid level of 6 due to cardiac arrest, recovered and normalized Acute leukocytosis, likely reactive Hyperglycemic, likely reactive, currently on sliding scale insulin coverage Plan Continue ventilator support. Keep the same ventilator settings and drop the FiO2 to 40% The patient is sedated with propofol Repeat EEG today Continue titrating the pressors and the patient is currently on norepinephrine Change IV fluids to KVO Give the patient dose of Lasix 40 mg IV push Discontinue the vancomycin and continue Zosyn for now *Enteral feeding for nutritional support Repeat CAT scan of the brain Continued IV heparin Awaiting cultures IV Protonix Condition is critical we will continue to follow This is a critically care evaluation was done more than 30 minutes. Long-term prognosis poor baseline above-mentioned comorbidities. Time with Patient: Greater than 30
--- NOTE | 2022-06-04 13:18 | P.PN ---
Subjective Progress Note Date: 06/04/22 The patient is seen at bedside and per nurse no further myclonic jerks. He was on IV Propofol drip 20mcg/kg/min and notified nurse to hold it for examination. Seems the patient is on IV heparin drip. I spoke with the patient and she did not know exactly the last downtime but she stated that she and her were in bed in no talking to one another and all of a sudden he felt on a bad and had urinary incontinence. She stated that he had lack of appetite for the past 1 week. Her timing did not coincide with the incident so she stated that when he was down she called EMS and they came to the scene shortly after. There is a language barrier but even with translation she could not tell the nurse approximate down time. Objective - Vital Signs Vital signs: Vital Signs Temp 100.0 F H 06/04/22 12:00 Pulse 94 06/04/22 12:00 Resp 24 06/04/22 12:00 BP 98/60 06/04/22 00:00 Pulse Ox 97 06/04/22 12:00 FiO2 40 06/04/22 11:30 Intake & Output 06/03/22 06/04/22 06/04/22 18:59 06:59 18:59 Intake Total 693.370 4689.758 720.235 Output Total 580 510 965 Balance 232.999 504.758 -244.765 Weight 54.431 kg 53.9 kg 53.9 kg Intake: IV 790 961 468 0.9 425 75 Piperacillin-Tazobactam 3 100 25 .375 gm In Sodium Chloride 0.9% 100 ml @ 25 mls/hr IVPB Q8HR [facility] Rx# :[id number] Sodium Chloride 0.9% 1, 825 450 000 ml @ 75 mls/hr IV . [id number] [facility] Rx#:[id number] Vancomycin 1,000 mg In 250 Sodium Chloride 0.9% 250 ml @ 125 mls/hr IVPB DAILY [facility] Rx#:[id number] pressure bags 15 36 18 Intake, IV Titration 22.999 53.758 252.235 Amount Heparin Sod,Pork in 0.45% 64.503 NaCl 25,000 unit In 0.45 % NaCl 1 250ml.bag @ 18 UNITS/KG/HR 9.798 mls/hr IV .Q24H [facility] Rx#: [id number] Norepinephrine 4 mg In 20.636 134.387 Sodium Chloride 0.9% 250 ml @ 0.05 MCG/KG/MIN 10. 369 mls/hr IV .Q24H [facility] Rx#:[id number] propofoL 1,000 mg In 22.999 33.122 53.345 Empty Bag 1 bag @ 5 MCG/ KG/MIN 1.633 mls/hr IV . Q24H [facility] Rx#:[id number] Output: Urine 580 510 965 Other: Voiding Method Indwelling Catheter Indwelling Catheter # Bowel Movements 1 ABP, PAP, CO, CI - Last Documented Arterial Blood Pressure 118/55 - Exam GENERAL: The patient is lying in bed and does not appear in acute distress. LUNG: Clear to auscultation bilaterally no wheezing noted throughout. Not labored breathing. Intubated on ventilator. NEUROLOGICAL: Limited because of his condition. IV Propofol 20mcg/kg/min (held for 45 minutes prior to examining him) Higher mental function: Patient is comatose. GCS6 (E1, VT1, M4). No responsive or following commands. Cranial nerves: I had to manually open his eyes. Primary gaze is midline. The right pupil is 2mm and reactive to light. While the left eye is opacified that is grayish is coloration. Negative corneal, occulocephalic. No facial weakness. Has weak cough reflex. Is breathing over the vent. Motor: The strength is hard to assess. No spontaneous movement. No withdrawal to movement to painful stimuli throughout. Decrease tone throughout. Normal bulk. Cerebellum: Unable to assess. Sensation: Not withdrawal or grimacing face to painful stimuli throughout. Reflexes (right/left): 1+ throughout except left knee is 0. Plantars are mute bilaterally. Some of the workup in the ED consisted of: Coronavirus patient are not detected CT of the head is reported as degenerative and nonspecific white matter changes most typical of remote ischemia. No acute hemorrhage or mass effect with MRI as clinically warranted. I personally reviewed the CT of the head and I don't feel there is any acute subacute ischemia there is no intracranial hemorrhage, there is no mass effect. Diana EEG is abnormal. The generalized polyspike increases risk for myoclonic seizure. Otherwise the background is suppressed over the bilateral hemisphere and one of the possibilities is due to medication effect (high dose Ativan and on IV propofol) and another possibility is due to anoxia from cardiopulmonary arrest. There is no seizure detected during the study. Cortical correlation is recommended. 2-D echo was reported as moderate to severe left ventricular hypertrophy with septal and posterior wall diastolic thickness 1.6-1.8 cm. Ejection fraction of 25%. Mild to moderate aortic regurgitation. Left atrial size at the upper limits of normal. - Labs CBC & Chem 7: 06/04/22 04:30 06/04/22 04:30 Labs: Abnormal Lab Results - Last 24 Hours (Table) 06/03/22 06/03/22 06/03/22 Range/Units 13:08 13:10 14:20 WBC (3.8-10.6) k/uL Neutrophils # (1.3-7.7) k/uL Lymphocytes # (1.0-4.8) k/uL PT (9.0-12.0) sec APTT (22.0-30.0) sec ABG pO2 329 H (83-108) mmHg ABG HCO3 20 L (21-25) mmol/L ABG O2 Saturation 100.0 H (94-97) % ABG Hematocrit 47 H (34.0-46.0) % ABG Ionized Calcium (4.5-5.3) mg/dL ABG Glucose (75-99) mg/dL ABG Lactic Acid (0.5-1.6) mmol/L Chloride (98-107) mmol/L Carbon Dioxide (22-30) mmol/L BUN (9-20) mg/dL Glucose (74-99) mg/dL POC Glucose (mg/dL) 153 H (70-110) mg/dL Plasma Lactic Acid Carlos Alberto 6.0 H* (0.7-2.0) mmol/L Calcium (8.4-10.2) mg/dL AST (17-59) U/L ALT (4-49) U/L CK-MB (CK-2) (0.0-2.4) ng/mL Troponin I (0.000-0.034) ng/mL Total Protein (6.3-8.2) g/dL Albumin (3.5-5.0) g/dL Procalcitonin (0.02-0.09) ng/mL Arterial Blood Glucose (75-99) mg/dL Ur Specific [place] (1.001-1.035) Urine Protein (Negative) Urine Ketones (Negative) Urine Blood (Negative) Ur Leukocyte Esterase (Negative) Urine RBC (0-5) /hpf Urine WBC (0-5) /hpf Urine Bacteria (None) /hpf Urine Mucus (None) /hpf 06/03/22 06/03/22 06/03/22 Range/Units 15:40 15:40 18:20 WBC (3.8-10.6) k/uL Neutrophils # (1.3-7.7) k/uL Lymphocytes # (1.0-4.8) k/uL PT (9.0-12.0) sec APTT (22.0-30.0) sec ABG pO2 (83-108) mmHg ABG HCO3 (21-25) mmol/L ABG O2 Saturation (94-97) % ABG Hematocrit (34.0-46.0) % ABG Ionized Calcium (4.5-5.3) mg/dL ABG Glucose (75-99) mg/dL ABG Lactic Acid (0.5-1.6) mmol/L Chloride (98-107) mmol/L Carbon Dioxide (22-30) mmol/L BUN (9-20) mg/dL Glucose (74-99) mg/dL POC Glucose (mg/dL) (70-110) mg/dL Plasma Lactic Acid Carlos Alberto 3.0 H* (0.7-2.0) mmol/L Calcium (8.4-10.2) mg/dL AST (17-59) U/L ALT (4-49) U/L CK-MB (CK-2) 14.8 H (0.0-2.4) ng/mL Troponin I 15.100 H* (0.000-0.034) ng/mL Total Protein (6.3-8.2) g/dL Albumin (3.5-5.0) g/dL Procalcitonin (0.02-0.09) ng/mL Arterial Blood Glucose (75-99) mg/dL Ur Specific [place] 1.048 H (1.001-1.035) Urine Protein Trace H (Negative) Urine Ketones 2+ H (Negative) Urine Blood Moderate H (Negative) Ur Leukocyte Esterase Small H (Negative) Urine RBC 20 H (0-5) /hpf Urine WBC 9 H (0-5) /hpf Urine Bacteria Rare H (None) /hpf Urine Mucus Occasional H (None) /hpf 06/03/22 06/03/22 06/03/22 Range/Units 18:35 21:32 21:32 WBC (3.8-10.6) k/uL Neutrophils # (1.3-7.7) k/uL Lymphocytes # (1.0-4.8) k/uL PT (9.0-12.0) sec APTT (22.0-30.0) sec ABG pO2 (83-108) mmHg ABG HCO3 (21-25) mmol/L ABG O2 Saturation (94-97) % ABG Hematocrit (34.0-46.0) % ABG Ionized Calcium (4.5-5.3) mg/dL ABG Glucose (75-99) mg/dL ABG Lactic Acid (0.5-1.6) mmol/L Chloride (98-107) mmol/L Carbon Dioxide (22-30) mmol/L BUN (9-20) mg/dL Glucose (74-99) mg/dL POC Glucose (mg/dL) (70-110) mg/dL Plasma Lactic Acid Carlos Alberto 3.2 H* (0.7-2.0) mmol/L Calcium (8.4-10.2) mg/dL AST (17-59) U/L ALT (4-49) U/L CK-MB (CK-2) (0.0-2.4) ng/mL Troponin I 20.600 H* (0.000-0.034) ng/mL Total Protein (6.3-8.2) g/dL Albumin (3.5-5.0) g/dL Procalcitonin 4.05 H (0.02-0.09) ng/mL Arterial Blood Glucose (75-99) mg/dL Ur Specific [place] (1.001-1.035) Urine Protein (Negative) Urine Ketones (Negative) Urine Blood (Negative) Ur Leukocyte Esterase (Negative) Urine RBC (0-5) /hpf Urine WBC (0-5) /hpf Urine Bacteria (None) /hpf Urine Mucus (None) /hpf 06/03/22 06/03/22 06/03/22 Range/Units 21:32 23:52 23:52 WBC 21.9 H (3.8-10.6) k/uL Neutrophils # 20.0 H (1.3-7.7) k/uL Lymphocytes # 0.9 L (1.0-4.8) k/uL PT 12.1 H (9.0-12.0) sec APTT 36.9 H (22.0-30.0) sec ABG pO2 (83-108) mmHg ABG HCO3 (21-25) mmol/L ABG O2 Saturation (94-97) % ABG Hematocrit (34.0-46.0) % ABG Ionized Calcium (4.5-5.3) mg/dL ABG Glucose (75-99) mg/dL ABG Lactic Acid (0.5-1.6) mmol/L Chloride (98-107) mmol/L Carbon Dioxide (22-30) mmol/L BUN (9-20) mg/dL Glucose (74-99) mg/dL POC Glucose (mg/dL) (70-110) mg/dL Plasma Lactic Acid Carlos Alberto 3.4 H* (0.7-2.0) mmol/L Calcium (8.4-10.2) mg/dL AST (17-59) U/L ALT (4-49) U/L CK-MB (CK-2) (0.0-2.4) ng/mL Troponin I (0.000-0.034) ng/mL Total Protein (6.3-8.2) g/dL Albumin (3.5-5.0) g/dL Procalcitonin (0.02-0.09) ng/mL Arterial Blood Glucose (75-99) mg/dL Ur Specific [place] (1.001-1.035) Urine Protein (Negative) Urine Ketones (Negative) Urine Blood (Negative) Ur Leukocyte Esterase (Negative) Urine RBC (0-5) /hpf Urine WBC (0-5) /hpf Urine Bacteria (None) /hpf Urine Mucus (None) /hpf 06/04/22 06/04/22 06/04/22 Range/Units 00:15 04:30 04:30 WBC 21.4 H (3.8-10.6) k/uL Neutrophils # 19.4 H (1.3-7.7) k/uL Lymphocytes # (1.0-4.8) k/uL PT (9.0-12.0) sec APTT (22.0-30.0) sec ABG pO2 (83-108) mmHg ABG HCO3 (21-25) mmol/L ABG O2 Saturation (94-97) % ABG Hematocrit (34.0-46.0) % ABG Ionized Calcium (4.5-5.3) mg/dL ABG Glucose (75-99) mg/dL ABG Lactic Acid (0.5-1.6) mmol/L Chloride 109 H (98-107) mmol/L Carbon Dioxide 21 L (22-30) mmol/L BUN 27 H (9-20) mg/dL Glucose 185 H (74-99) mg/dL POC Glucose (mg/dL) 164 H (70-110) mg/dL Plasma Lactic Acid Carlos Alberto (0.7-2.0) mmol/L Calcium 7.9 L (8.4-10.2) mg/dL AST 178 H (17-59) U/L ALT 59 H (4-49) U/L CK-MB (CK-2) (0.0-2.4) ng/mL Troponin I (0.000-0.034) ng/mL Total Protein 5.8 L (6.3-8.2) g/dL Albumin 3.1 L (3.5-5.0) g/dL Procalcitonin (0.02-0.09) ng/mL Arterial Blood Glucose (75-99) mg/dL Ur Specific [place] (1.001-1.035) Urine Protein (Negative) Urine Ketones (Negative) Urine Blood (Negative) Ur Leukocyte Esterase (Negative) Urine RBC (0-5) /hpf Urine WBC (0-5) /hpf Urine Bacteria (None) /hpf Urine Mucus (None) /hpf 06/04/22 06/04/22 06/04/22 Range/Units 05:39 06:01 06:45 WBC (3.8-10.6) k/uL Neutrophils # (1.3-7.7) k/uL Lymphocytes # (1.0-4.8) k/uL PT (9.0-12.0) sec APTT >200.0 H* (22.0-30.0) sec ABG pO2 167 H (83-108) mmHg ABG HCO3 (21-25) mmol/L ABG O2 Saturation 99.1 H (94-97) % ABG Hematocrit (34.0-46.0) % ABG Ionized Calcium 4.4 L (4.5-5.3) mg/dL ABG Glucose 179 H (75-99) mg/dL ABG Lactic Acid 1.7 H (0.5-1.6) mmol/L Chloride (98-107) mmol/L Carbon Dioxide (22-30) mmol/L BUN (9-20) mg/dL Glucose (74-99) mg/dL POC Glucose (mg/dL) 169 H (70-110) mg/dL Plasma Lactic Acid Carlos Alberto (0.7-2.0) mmol/L Calcium (8.4-10.2) mg/dL AST (17-59) U/L ALT (4-49) U/L CK-MB (CK-2) (0.0-2.4) ng/mL Troponin I (0.000-0.034) ng/mL Total Protein (6.3-8.2) g/dL Albumin (3.5-5.0) g/dL Procalcitonin (0.02-0.09) ng/mL Arterial Blood Glucose 179 H (75-99) mg/dL Ur Specific [place] (1.001-1.035) Urine Protein (Negative) Urine Ketones (Negative) Urine Blood (Negative) Ur Leukocyte Esterase (Negative) Urine RBC (0-5) /hpf Urine WBC (0-5) /hpf Urine Bacteria (None) /hpf Urine Mucus (None) /hpf 06/04/22 Range/Units 12:52 WBC (3.8-10.6) k/uL Neutrophils # (1.3-7.7) k/uL Lymphocytes # (1.0-4.8) k/uL PT (9.0-12.0) sec APTT (22.0-30.0) sec ABG pO2 (83-108) mmHg ABG HCO3 (21-25) mmol/L ABG O2 Saturation (94-97) % ABG Hematocrit (34.0-46.0) % ABG Ionized Calcium (4.5-5.3) mg/dL ABG Glucose (75-99) mg/dL ABG Lactic Acid (0.5-1.6) mmol/L Chloride (98-107) mmol/L Carbon Dioxide (22-30) mmol/L BUN (9-20) mg/dL Glucose (74-99) mg/dL POC Glucose (mg/dL) 141 H (70-110) mg/dL Plasma Lactic Acid Carlos Alberto (0.7-2.0) mmol/L Calcium (8.4-10.2) mg/dL AST (17-59) U/L ALT (4-49) U/L CK-MB (CK-2) (0.0-2.4) ng/mL Troponin I (0.000-0.034) ng/mL Total Protein (6.3-8.2) g/dL Albumin (3.5-5.0) g/dL Procalcitonin (0.02-0.09) ng/mL Arterial Blood Glucose (75-99) mg/dL Ur Specific [place] (1.001-1.035) Urine Protein (Negative) Urine Ketones (Negative) Urine Blood (Negative) Ur Leukocyte Esterase (Negative) Urine RBC (0-5) /hpf Urine WBC (0-5) /hpf Urine Bacteria (None) /hpf Urine Mucus (None) /hpf Microbiology - Last 24 Hours (Table) 06/04/22 00:45 Sputum Culture - Preliminary Sputum Assessment and Plan Assessment: Acute Cardiopulmonary arrest. Initial ryhytm reported is PEA. Unknown down time but he was reported to be found down by EMS around 8:48AM (per probably was down not too far out from EMS arrival). 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 Some component due to sedation IV propofol. Myoclonic seizure due to cardiopulmonary arrest--resolved Acute hypoxic respiratory failure intubated and on mechanical ventilatory Cardiomyopathy with global hypokinesis. Moderate and aortic regurgitation Elevated troponin Plan: Continue Keppra 1gm IV every 12 hours. If patient has any further seizure, can give another bolus of IV Keppra 1gm and increase scheduled dose to 1500mg every 12 hours with PRN Versed 5mg (since shortage of Ativan). If continues to seizure then recommend Depakote 1000mg IV loading with 500mg every 12 hours IV and if continues go up on IV propofol and start IV Versed Drip. Will get repeat routine EEG for today. Pending repeat CT head today. Cardiology team is consulted Please avoid any hypotensive episodes. We'll defer the rest of the medical management to the primary and ICU team The patient condition is very critical. The plan is discussed with the patient's nurse and ICU team. Neo Monet M.D. Neuro-hospitalist Time with Patient: Less than 30
--- NOTE | 2022-06-04 15:28 | CT ---
EXAMINATION TYPE: CT brain wo con DATE OF EXAM: 06/04/2022 HISTORY: Seizures CT DLP: 1213 mGycm. Automated Exposure Control for Dose Reduction was Utilized. TECHNIQUE: CT scan of the head is performed without contrast. COMPARISON: CT brain from yesterday FINDINGS: There is no acute intracranial hemorrhage or midline shift identified. There is mild diff use ventricular and sulcal prominence consistent with diffuse age-related cerebral atrophy redemonstr ated. Old lacunar infarct versus prominent Virchow-Jon space posterior left basal ganglia axial naun ge 34 redemonstrated. There is mild low-attenuation in the periventricular white matter redemonstrate d. Punctate calcification in the anterior left globe redemonstrated. Paranasal sinuses remain clear . Slight nasal septal deviation again seen. IMPRESSION: No acute intracranial hemorrhage or midline shift. There is mild diffuse age-related ce rebral atrophy and mild nonspecific white matter changes favoring products of chronic small vessel is chemic change in patient this age redemonstrated. No significant change from one day earlier.
--- NOTE | 2022-06-04 15:32 | P.PN ---
Subjective Progress Note Date: 06/04/22 This is an 86 year old male who is brought into the hospital after being found unresponsive. He is currently intubated and being monitored in intensive care unit. Patient is on mechanical ventilator with FiO2 of 40%, afebrile, blood pressure 119/48. Patient is being followed up pulmonary route delivery driver, cardiology and neurology. Patient underwent EEG yesterday showing a generalized polyspike that increases risk for myoclonic seizure, additional findings in report suggest medication effect versus anoxia. Patient did have propofol paused this morning per nursing he experienced tachycardia during that time and propofol was restarted. Patient is not currently displaying myoclonus per reports he as having myoclonic jerks yesterday. Echocardiogram showing an EF of 25% with global hypokinesis also has troponin elevation. Patient had repeat chest xray today showing diffuse bilateral infiltrates greater on the left correlate for pulmonary edema versus pneumonia. Sputum and blood culture is currently pending. He is continued on IV zosyn. He received a dose of IV lasix today. Patient also continues on IV keppra. Patient is also on heparin infusion. Plan to start patient on enteral feedings today. Repeat EEG and brain CT pending. Labs today showing a white count of 21.4, neutrophils 19.4, BUN 27, creatinine 0.95, sodium 138, potassium 4.0, chloride 109, CO2 21, magnesium 1.8, AST 178, ALT 59, alk ph os 60. His procalcitonin yesterday is 4.05. Lactic acid has improved to 1.9. Unable to complete full review of systems as patient is currently intubated in ICU. PHYSICAL EXAMINATION: GENERAL: The patient is currently intubated. Well developed, well nourished. HEENT: Pupils are round and equally reacting to light. EOMI. No scleral icterus. No conjunctival pallor. Normocephalic, atraumatic. No pharyngeal erythema. No thyromegaly. CARDIOVASCULAR: S1 and S2 present. No murmurs, rubs, or gallops. PULMONARY: Chest is clear to auscultation, no wheezing or crackles. ABDOMEN: Soft, nontender, nondistended, hypoactive bowel sounds. No palpable organomegaly. Indwelling catheter in place. MUSCULOSKELETAL: No joint swelling or deformity. EXTREMITIES: No cyanosis, clubbing, or pedal edema. NEUROLOGICAL: Gross neurological examination did not reveal any focal deficits. SKIN: No rashes. Assessment and plan Assessment Acute cardiac arrest possibly from acute Non ST elevation SC Possible anoxic encephalopathy Acute hypoxic respiratory failure on mechanical ventilation Myoclonus jerks, on IV Keppra empirically Leukocytosis Lactic acidosis, improved Non-anion gap metabolic acidosis secondary to lactic acidosis Elevated liver enzymes possible from hepatic congestion GI Prophylaxis DVT Prophylaxis Continues on IV heparin Full Code Plan Continue monitoring patient in intensive care unit, on mechanical ventilator Neurology consultation Cardiology recommending cardiac catheterization when respiratory status improves Continues on empiric antibiotic coverage EEG/Brain CT pending IV lasix x 1 given today Repeat lab in AM Prognosis remains guarded at this time The impression and plan of care has been dictated by Brittney Pereira Nurse Practitioner as directed. Dr. Kassi MD I have performed a history and physical examination and medical decision making of this patient, discussed the same with the dictator, and agree with the dictators assessment and plan as written, documented as a scribe. Based on total visit time, I have performed more than 50% of this visit. Objective - Vital Signs Vital signs: Vital Signs Temp 100.0 F H 06/04/22 12:00 Pulse 94 06/04/22 13:00 Resp 23 06/04/22 13:00 BP 98/60 06/04/22 00:00 Pulse Ox 98 06/04/22 13:00 FiO2 40 06/04/22 13:12 Intake & Output 06/03/22 06/04/22 06/04/22 18:59 06:59 18:59 Intake Total 288.689 6696.758 1128.259 Output Total 164 387 6071 Balance 232.999 504.758 -186.741 Weight 54.431 kg 53.9 kg 53.9 kg Intake: IV 790 961 646 0.9 425 75 Piperacillin-Tazobactam 3 100 25 .375 gm In Sodium Chloride 0.9% 100 ml @ 25 mls/hr IVPB Q8HR [facility] Rx# :[id number] Sodium Chloride 0.9% 1, 825 525 000 ml @ 10 mls/hr IV . Q24H [facility] Rx#:[id number] Vancomycin 1,000 mg In 250 Sodium Chloride 0.9% 250 ml @ 125 mls/hr IVPB DAILY [facility] Rx#:[id number] levETIRAcetam IV 1,000 mg 100 In Saline 1 100ml.bag @ 400 mls/hr IVPB ONCE STA Rx#:[id number] pressure bags 15 36 21 Intake, IV Titration 22.999 53.758 462.259 Amount Heparin Sod,Pork in 0.45% 64.503 NaCl 25,000 unit In 0.45 % NaCl 1 250ml.bag @ 18 UNITS/KG/HR 9.798 mls/hr IV .Q24H [facility] Rx#: [id number] Magnesium Sulfate-D5w Pmx 100 1 gm In Dextrose/Water 1 100ml.bag @ 100 mls/hr IVPB Q1H [facility] Rx#: [id number] Norepinephrine 4 mg In 20.636 144.411 Sodium Chloride 0.9% 250 ml @ 0.05 MCG/KG/MIN 10. 369 mls/hr IV .Q24H [facility] Rx#:[id number] Piperacillin-Tazobactam 3 100 .375 gm In Sodium Chloride 0.9% 100 ml @ 25 mls/hr IVPB Q8HR [facility] Rx# :[id number] propofoL 1,000 mg In 22.999 33.122 53.345 Empty Bag 1 bag @ 5 MCG/ KG/MIN 1.633 mls/hr IV . Q24H [facility] Rx#:[id number] Tube Feeding 20 Output: Urine 922 219 9154 Other: Voiding Method Indwelling Catheter Indwelling Catheter Indwelling Catheter # Bowel Movements 1 ABP, PAP, CO, CI - Last Documented Arterial Blood Pressure 112/49 - Labs CBC & Chem 7: 06/04/22 04:30 06/04/22 04:30 Labs: Abnormal Lab Results - Last 24 Hours (Table) 06/03/22 06/03/22 06/03/22 Range/Units 15:40 15:40 18:20 WBC (3.8-10.6) k/uL Neutrophils # (1.3-7.7) k/uL Lymphocytes # (1.0-4.8) k/uL PT (9.0-12.0) sec APTT (22.0-30.0) sec ABG pO2 (83-108) mmHg ABG O2 Saturation (94-97) % ABG Ionized Calcium (4.5-5.3) mg/dL ABG Glucose (75-99) mg/dL ABG Lactic Acid (0.5-1.6) mmol/L Chloride (98-107) mmol/L Carbon Dioxide (22-30) mmol/L BUN (9-20) mg/dL Glucose (74-99) mg/dL POC Glucose (mg/dL) (70-110) mg/dL Plasma Lactic Acid Carlos Alberto 3.0 H* (0.7-2.0) mmol/L Calcium (8.4-10.2) mg/dL AST (17-59) U/L ALT (4-49) U/L CK-MB (CK-2) 14.8 H (0.0-2.4) ng/mL Troponin I 15.100 H* (0.000-0.034) ng/mL Total Protein (6.3-8.2) g/dL Albumin (3.5-5.0) g/dL Procalcitonin (0.02-0.09) ng/mL Arterial Blood Glucose (75-99) mg/dL Ur Specific [place] 1.048 H (1.001-1.035) Urine Protein Trace H (Negative) Urine Ketones 2+ H (Negative) Urine Blood Moderate H (Negative) Ur Leukocyte Esterase Small H (Negative) Urine RBC 20 H (0-5) /hpf Urine WBC 9 H (0-5) /hpf Urine Bacteria Rare H (None) /hpf Urine Mucus Occasional H (None) /hpf 06/03/22 06/03/22 06/03/22 Range/Units 18:35 21:32 21:32 WBC (3.8-10.6) k/uL Neutrophils # (1.3-7.7) k/uL Lymphocytes # (1.0-4.8) k/uL PT (9.0-12.0) sec APTT (22.0-30.0) sec ABG pO2 (83-108) mmHg ABG O2 Saturation (94-97) % ABG Ionized Calcium (4.5-5.3) mg/dL ABG Glucose (75-99) mg/dL ABG Lactic Acid (0.5-1.6) mmol/L Chloride (98-107) mmol/L Carbon Dioxide (22-30) mmol/L BUN (9-20) mg/dL Glucose (74-99) mg/dL POC Glucose (mg/dL) (70-110) mg/dL Plasma Lactic Acid Carlos Alberto 3.2 H* (0.7-2.0) mmol/L Calcium (8.4-10.2) mg/dL AST (17-59) U/L ALT (4-49) U/L CK-MB (CK-2) (0.0-2.4) ng/mL Troponin I 20.600 H* (0.000-0.034) ng/mL Total Protein (6.3-8.2) g/dL Albumin (3.5-5.0) g/dL Procalcitonin 4.05 H (0.02-0.09) ng/mL Arterial Blood Glucose (75-99) mg/dL Ur Specific [place] (1.001-1.035) Urine Protein (Negative) Urine Ketones (Negative) Urine Blood (Negative) Ur Leukocyte Esterase (Negative) Urine RBC (0-5) /hpf Urine WBC (0-5) /hpf Urine Bacteria (None) /hpf Urine Mucus (None) /hpf 06/03/22 06/03/22 06/03/22 Range/Units 21:32 23:52 23:52 WBC 21.9 H (3.8-10.6) k/uL Neutrophils # 20.0 H (1.3-7.7) k/uL Lymphocytes # 0.9 L (1.0-4.8) k/uL PT 12.1 H (9.0-12.0) sec APTT 36.9 H (22.0-30.0) sec ABG pO2 (83-108) mmHg ABG O2 Saturation (94-97) % ABG Ionized Calcium (4.5-5.3) mg/dL ABG Glucose (75-99) mg/dL ABG Lactic Acid (0.5-1.6) mmol/L Chloride (98-107) mmol/L Carbon Dioxide (22-30) mmol/L BUN (9-20) mg/dL Glucose (74-99) mg/dL POC Glucose (mg/dL) (70-110) mg/dL Plasma Lactic Acid Carlos Alberto 3.4 H* (0.7-2.0) mmol/L Calcium (8.4-10.2) mg/dL AST (17-59) U/L ALT (4-49) U/L CK-MB (CK-2) (0.0-2.4) ng/mL Troponin I (0.000-0.034) ng/mL Total Protein (6.3-8.2) g/dL Albumin (3.5-5.0) g/dL Procalcitonin (0.02-0.09) ng/mL Arterial Blood Glucose (75-99) mg/dL Ur Specific [place] (1.001-1.035) Urine Protein (Negative) Urine Ketones (Negative) Urine Blood (Negative) Ur Leukocyte Esterase (Negative) Urine RBC (0-5) /hpf Urine WBC (0-5) /hpf Urine Bacteria (None) /hpf Urine Mucus (None) /hpf 06/04/22 06/04/22 06/04/22 Range/Units 00:15 04:30 04:30 WBC 21.4 H (3.8-10.6) k/uL Neutrophils # 19.4 H (1.3-7.7) k/uL Lymphocytes # (1.0-4.8) k/uL PT (9.0-12.0) sec APTT (22.0-30.0) sec ABG pO2 (83-108) mmHg ABG O2 Saturation (94-97) % ABG Ionized Calcium (4.5-5.3) mg/dL ABG Glucose (75-99) mg/dL ABG Lactic Acid (0.5-1.6) mmol/L Chloride 109 H (98-107) mmol/L Carbon Dioxide 21 L (22-30) mmol/L BUN 27 H (9-20) mg/dL Glucose 185 H (74-99) mg/dL POC Glucose (mg/dL) 164 H (70-110) mg/dL Plasma Lactic Acid Carlos Alberto (0.7-2.0) mmol/L Calcium 7.9 L (8.4-10.2) mg/dL AST 178 H (17-59) U/L ALT 59 H (4-49) U/L CK-MB (CK-2) (0.0-2.4) ng/mL Troponin I (0.000-0.034) ng/mL Total Protein 5.8 L (6.3-8.2) g/dL Albumin 3.1 L (3.5-5.0) g/dL Procalcitonin (0.02-0.09) ng/mL Arterial Blood Glucose (75-99) mg/dL Ur Specific [place] (1.001-1.035) Urine Protein (Negative) Urine Ketones (Negative) Urine Blood (Negative) Ur Leukocyte Esterase (Negative) Urine RBC (0-5) /hpf Urine WBC (0-5) /hpf Urine Bacteria (None) /hpf Urine Mucus (None) /hpf 06/04/22 06/04/22 06/04/22 Range/Units 05:39 06:01 06:45 WBC (3.8-10.6) k/uL Neutrophils # (1.3-7.7) k/uL Lymphocytes # (1.0-4.8) k/uL PT (9.0-12.0) sec APTT >200.0 H* (22.0-30.0) sec ABG pO2 167 H (83-108) mmHg ABG O2 Saturation 99.1 H (94-97) % ABG Ionized Calcium 4.4 L (4.5-5.3) mg/dL ABG Glucose 179 H (75-99) mg/dL ABG Lactic Acid 1.7 H (0.5-1.6) mmol/L Chloride (98-107) mmol/L Carbon Dioxide (22-30) mmol/L BUN (9-20) mg/dL Glucose (74-99) mg/dL POC Glucose (mg/dL) 169 H (70-110) mg/dL Plasma Lactic Acid Carlos Alberto (0.7-2.0) mmol/L Calcium (8.4-10.2) mg/dL AST (17-59) U/L ALT (4-49) U/L CK-MB (CK-2) (0.0-2.4) ng/mL Troponin I (0.000-0.034) ng/mL Total Protein (6.3-8.2) g/dL Albumin (3.5-5.0) g/dL Procalcitonin (0.02-0.09) ng/mL Arterial Blood Glucose 179 H (75-99) mg/dL Ur Specific [place] (1.001-1.035) Urine Protein (Negative) Urine Ketones (Negative) Urine Blood (Negative) Ur Leukocyte Esterase (Negative) Urine RBC (0-5) /hpf Urine WBC (0-5) /hpf Urine Bacteria (None) /hpf Urine Mucus (None) /hpf 06/04/22 Range/Units 12:52 WBC (3.8-10.6) k/uL Neutrophils # (1.3-7.7) k/uL Lymphocytes # (1.0-4.8) k/uL PT (9.0-12.0) sec APTT (22.0-30.0) sec ABG pO2 (83-108) mmHg ABG O2 Saturation (94-97) % ABG Ionized Calcium (4.5-5.3) mg/dL ABG Glucose (75-99) mg/dL ABG Lactic Acid (0.5-1.6) mmol/L Chloride (98-107) mmol/L Carbon Dioxide (22-30) mmol/L BUN (9-20) mg/dL Glucose (74-99) mg/dL POC Glucose (mg/dL) 141 H (70-110) mg/dL Plasma Lactic Acid Carlos Alberto (0.7-2.0) mmol/L Calcium (8.4-10.2) mg/dL AST (17-59) U/L ALT (4-49) U/L CK-MB (CK-2) (0.0-2.4) ng/mL Troponin I (0.000-0.034) ng/mL Total Protein (6.3-8.2) g/dL Albumin (3.5-5.0) g/dL Procalcitonin (0.02-0.09) ng/mL Arterial Blood Glucose (75-99) mg/dL Ur Specific [place] (1.001-1.035) Urine Protein (Negative) Urine Ketones (Negative) Urine Blood (Negative) Ur Leukocyte Esterase (Negative) Urine RBC (0-5) /hpf Urine WBC (0-5) /hpf Urine Bacteria (None) /hpf Urine Mucus (None) /hpf Microbiology - Last 24 Hours (Table) 06/03/22 12:25 Blood Culture - Preliminary Blood No Growth after 24 hours 06/03/22 12:10 Blood Culture - Preliminary Blood No Growth after 24 hours 06/04/22 00:45 Sputum Culture - Preliminary Sputum Assessment and Plan Time with Patient: Less than 30
[2022-06-04] MEDS ORDERED: FUROSEMIDE 10 MG/ML 4 ML VIAL IV ONE (17:00)
[2022-06-04] MEDS ORDERED: Potassium Replacement Protocol 1 EACH MISC MISCELLANE PRN (19:38)
[2022-06-04] MEDS: POTASSIUM BICARBONATE/CIT AC 20 MEQ TABLET.EFF NG-TUBE SCH ×2 (20:59→21:53)
[2022-06-04] MEDS: NOREPINEPHRINE 4 MG in SODIUM CHLORIDE 0.9% 250 ML IV SCH (21:01)
--- NOTE | 2022-06-04 21:57 | EEG ---
ELECTROENCEPHALOGRAM REPORT DATE OF SERVICE: 06/04/2022 CLINICAL HISTORY: This is an 86-year-old gentleman who presented to the ED because of outside of the hospital cardiac arrest. The patient had myoclonic jerks as a result. The video EEG is obtained to evaluate for seizure epileptiform activity. RELEVANT MEDICATIONS: IV propofol and Keppra. EEG TYPE: Routine 21-channel EEG is performed with video using the 10/20 electrode placement system. DESCRIPTION: The patient is intubated on a ventilator. The background consists of low voltage delta intermixed with theta activity. It is hard to appreciate, predominantly the occipital cerebral activity. There is no focal slowing. Interictal and ictal is none. ACTIVATION PROCEDURES: Photic stimulation and hyperventilation is not performed. INTERPRETATION: This is an abnormal routine EEG. The background slowing is suggestive of moderate-to- severe encephalopathy. There is no focal slowing, epileptiform discharge or seizure on the EEG. Clinical correlation is recommended. Compared to the EEG on 06/03/2022, this EEG is somewhat better. MMCR / IJN: [id number] / MTDD
[2022-06-04 23:37] LABS: Glucose,Whole Blood 175 mg/dL (70-110)
[2022-06-05 04:06] LABS: Basophils # (A) 0.2 k/uL (0-0.2); Basophils % (A) 1 %; Eosinophils % (A) 0 %; HCT 39.1 % (39.0-53.0); HGB 12.5 gm/dL (13.0-17.5); Lymphocytes # (A) 0.9 k/uL (1.0-4.8); Lymphocytes % (A) 5 %; MCH 30.8 pg (25.0-35.0); Mean Platelet Volume 8.5; Monocytes # (A) 0.6 k/uL (0-1.0); Monocytes % (A) 4 %; Neutrophils # (A) 15.5 k/uL (1.3-7.7); Neutrophils % (A) 89 %; Platelet Count 129 k/uL (150-450); RBC 4.07 m/uL (4.30-5.90); RDW 13.3 % (11.5-15.5); WBC 17.3 k/uL (3.8-10.6)
[2022-06-05] MEDS: SODIUM CHLORIDE 0.9% 1,000 ML IV SCH (04:37)
[2022-06-05 05:12] LABS: African American GFR (CKD) >90 (>60 ml/min/1.73 sqM); Anion Gap 7 mmol/L; Blood Urea Nitrogen 30 mg/dL (9-20); Calcium 7.9 mg/dL (8.4-10.2); Carbon Dioxide 30 mmol/L (22-30); Chloride 103 mmol/L (98-107); Glucose 157 mg/dL (74-99); Non-African American GFR(CKD) 78 (>60 ml/min/1.73 sqM); Potassium 3.6 mmol/L (3.5-5.1); Sodium 140 mmol/L (137-145)
[2022-06-05 05:47] LABS: Glucose,Whole Blood 158 mg/dL (70-110)
[2022-06-05 05:48] LABS: ABG HCO3 32 mmol/L (21-25); ABG Hematocrit 39 % (34.0-46.0); ABG PCO2 59 mmHg (35-45); ABG PH 7.34 (7.35-7.45); ABG PO2 100 mmHg (83-108); ABG TCO2 34 mmol/L (19-24); Allen Test Performed? Yes
[2022-06-05] MEDS: INSULIN ASPART (NovoLOG) 100 UNIT/ML VIAL SQ SCH ×4 (05:49→23:40)
[2022-06-05] MEDS ORDERED: POTASSIUM BICARBONATE/CIT AC 20 MEQ TABLET.EFF NG-TUBE SCH ×2 (06:00→19:00)
--- NOTE | 2022-06-05 06:58 | XR ---
EXAMINATION TYPE: XR chest 1V portable DATE OF EXAM: 06/05/2022 5:41 AM COMPARISON: Chest radiographs from 06/04/2022 TECHNIQUE: XR chest 1V portable Frontal view of the chest. CLINICAL INDICATION:Male, 86 years old with history of Tube placement; FINDINGS: Lungs/Pleura: No pneumothorax. Scattered patchy airspace disease. Small left pleural effusion. Pulmonary vascularity: Prominent interstitium. Heart/mediastinum: Cardiomediastinal silhouette is prominent in size. Musculoskeletal: No acute osseous pathology. Other findings: Surgical clips in the left upper abdomen. Lines/Tubes: Endotracheal tube with distal tip 4.2 cm above the monique Nasogastric tube with its distal tip and side-port projecting under the diaphragm. Left subclavian approach central venous catheter with tip terminating at the superior cavoatrial junc tion. IMPRESSION: 1. Redemonstration of diffuse bilateral infiltrates with left greater than right with small left ple ural effusion. This is marginally improved from prior examination. Correlate for pulmonary edema and/ or pneumonia. 2. Stable support lines and tubes.
[2022-06-05] MEDS: PIPERACILLIN-TAZOBACTAM 3.375 GM in SODIUM CHLORIDE 0.9% 100 ML IVPB SCH ×3 (08:32→23:40)
[2022-06-05] MEDS: CHLORHEXIDINE GLUCONATE 15 ML CUP MUCOUS MEM SCH ×2 (08:32→20:28)
[2022-06-05] MEDS: PANTOPRAZOLE 40 MG/10 ML VIAL IVP SCH ×2 (08:32→20:28)
[2022-06-05] MEDS: HEPARIN SOD,PORK IN 0.45% NACL 25,000 UNIT in 0.45% NACL 1 250ML.BAG IV SCH (08:33)
--- NOTE | 2022-06-05 09:59 | P.PN ---
Subjective Progress Note Date: 06/05/22 The patient is an 86-year-old female who follows in the office with Dr. José. The patient presented to the hospital I EMS after being found unresponsive by his . He EMS arrived, where the patient was found to be in PEA arrest. The patient received ROSC after 2 rounds of CPR and 2 doses of epinephrine. Initial computed tomography scan of the chest showed no evidence of pulmonary embolism despite elevated d-dimer. There was diffuse multifocal bilateral airspace disease, indicating multifocal pneumonia. Echocardiogram shows LV function at 25% with global hypokinesis and moderate to severe LVH. The patient was examined in the ICU. He is currently mechanically ventilated and is not responsive to stimuli. Positive cough and gag reflex. GENERAL: No acute distress. NECK: Supple without JVD or thyromegaly. LUNGS: Breath sounds diminished to auscultation bilaterally. Respiration equal a nd unlabored. No wheezes, rales or rhonchi. HEART: Regular rate and rhythm without murmurs, rubs or gallops. S1 and S2 heard. EXTREMITIES: No edema. No clubbing or cyanosis. Peripheral pulses intact and strong. VITALS: Blood pressure 156/62, pulse 112, respiratory rate 19, SpO2 98% on 40% FiO2, a febrile TELEMETRY: Sinus tachycardia overnight LABS: WBC 17.3, hemoglobin 12.5, hematocrit 39.1, platelet 129, sodium 140, potassium 3.6, BUN 30, creatinine 0.9 IMPRESSION: PEA arrest s/p 2 round of CPR with ROSC Acute hypoxic respiratory failure requiring intubation and mechanical ventilation Diffuse multifocal bilateral infiltrates Lactic acidosis Elevated troponin, secondary to above Cardiomyopathy with global hypokinesis, baseline ejection fraction 45% History of mild cardiomyopathy History of left bundle branch block Moderate mitral and aortic regurgitation History of occipital neuralgia PLAN: No further recommendations from the cardiac standpoint If the patient makes an improvement in his respiratory status, coronary angiogram may be considered I am dictating on behalf of Dr Edmond Munoz's history/physical and assessment/plan. Objective - Vital Signs Vital signs: Vital Signs Temp 98.9 F 06/05/22 08:00 Pulse 112 H 06/05/22 08:00 Resp 19 06/05/22 08:00 BP 98/60 06/04/22 00:00 Pulse Ox 98 06/05/22 08:00 FiO2 40 06/05/22 08:00 Intake & Output 06/04/22 06/05/22 06/05/22 18:59 06:59 18:59 Intake Total 1628.548 861.547 48.624 Output Total 2065 1605 Balance -436.452 -743.453 48.624 Weight 53.9 kg Intake: IV 958 309 Sodium Chloride 0.9% 1, 825 270 000 ml @ 10 mls/hr IV . Q24H [facility] Rx#:[id number] levETIRAcetam IV 1,000 mg 100 In Saline 1 100ml.bag @ 400 mls/hr IVPB ONCE STA Rx#:[id number] pressure bags 33 39 Intake, IV Titration 540.548 60.547 48.624 Amount Heparin Sod,Pork in 0.45% 120.256 24.131 48.624 NaCl 25,000 unit In 0.45 % NaCl 1 250ml.bag @ 18 UNITS/KG/HR 9.798 mls/hr IV .Q24H [facility] Rx#: [id number] Magnesium Sulfate-D5w Pmx 100 1 gm In Dextrose/Water 1 100ml.bag @ 100 mls/hr IVPB Q1H [facility] Rx#: [id number] Norepinephrine 4 mg In 144.411 Sodium Chloride 0.9% 250 ml @ 0.05 MCG/KG/MIN 10. 369 mls/hr IV .Q24H [facility] Rx#:[id number] Piperacillin-Tazobactam 3 100 .375 gm In Sodium Chloride 0.9% 100 ml @ 25 mls/hr IVPB Q8HR [facility] Rx# :[id number] propofoL 1,000 mg In 75.881 36.416 Empty Bag 1 bag @ 5 MCG/ KG/MIN 1.633 mls/hr IV . Q24H [facility] Rx#:[id number] Tube Feeding 100 402 Other 30 90 Output: Urine 2065 1605 Other: Voiding Method Indwelling Catheter Indwelling Catheter ABP, PAP, CO, CI - Last Documented Arterial Blood Pressure 156/62 - Labs CBC & Chem 7: 06/05/22 03:55 06/05/22 03:55 Labs: Abnormal Lab Results - Last 24 Hours (Table) 06/04/22 06/04/22 06/04/22 Range/Units 12:52 15:50 18:50 WBC (3.8-10.6) k/uL RBC (4.30-5.90) m/uL Hgb (13.0-17.5) gm/dL Plt Count (150-450) k/uL Neutrophils # (1.3-7.7) k/uL Lymphocytes # (1.0-4.8) k/uL APTT 182.0 H* (22.0-30.0) sec ABG pH (7.35-7.45) ABG pCO2 (35-45) mmHg ABG HCO3 (21-25) mmol/L ABG Total CO2 (19-24) mmol/L ABG O2 Saturation (94-97) % Hemoglobin (13.0-17.5) gm/dL Potassium 3.3 L (3.5-5.1) mmol/L BUN (9-20) mg/dL Glucose (74-99) mg/dL POC Glucose (mg/dL) 141 H (70-110) mg/dL Calcium (8.4-10.2) mg/dL 06/04/22 06/05/22 06/05/22 Range/Units 23:35 01:00 03:55 WBC 17.3 H (3.8-10.6) k/uL RBC 4.07 L (4.30-5.90) m/uL Hgb 12.5 L (13.0-17.5) gm/dL Plt Count 129 L (150-450) k/uL Neutrophils # 15.5 H (1.3-7.7) k/uL Lymphocytes # 0.9 L (1.0-4.8) k/uL APTT 60.0 H (22.0-30.0) sec ABG pH (7.35-7.45) ABG pCO2 (35-45) mmHg ABG HCO3 (21-25) mmol/L ABG Total CO2 (19-24) mmol/L ABG O2 Saturation (94-97) % Hemoglobin (13.0-17.5) gm/dL Potassium (3.5-5.1) mmol/L BUN (9-20) mg/dL Glucose (74-99) mg/dL POC Glucose (mg/dL) 175 H (70-110) mg/dL Calcium (8.4-10.2) mg/dL 06/05/22 06/05/22 06/05/22 Range/Units 03:55 05:44 05:45 WBC (3.8-10.6) k/uL RBC (4.30-5.90) m/uL Hgb (13.0-17.5) gm/dL Plt Count (150-450) k/uL Neutrophils # (1.3-7.7) k/uL Lymphocytes # (1.0-4.8) k/uL APTT 51.8 H (22.0-30.0) sec ABG pH 7.34 L (7.35-7.45) ABG pCO2 59 H (35-45) mmHg ABG HCO3 32 H (21-25) mmol/L ABG Total CO2 34 H (19-24) mmol/L ABG O2 Saturation 98.0 H (94-97) % Hemoglobin 12.6 L (13.0-17.5) gm/dL Potassium (3.5-5.1) mmol/L BUN 30 H (9-20) mg/dL Glucose 157 H (74-99) mg/dL POC Glucose (mg/dL) (70-110) mg/dL Calcium 7.9 L (8.4-10.2) mg/dL 06/05/22 Range/Units 05:46 WBC (3.8-10.6) k/uL RBC (4.30-5.90) m/uL Hgb (13.0-17.5) gm/dL Plt Count (150-450) k/uL Neutrophils # (1.3-7.7) k/uL Lymphocytes # (1.0-4.8) k/uL APTT (22.0-30.0) sec ABG pH (7.35-7.45) ABG pCO2 (35-45) mmHg ABG HCO3 (21-25) mmol/L ABG Total CO2 (19-24) mmol/L ABG O2 Saturation (94-97) % Hemoglobin (13.0-17.5) gm/dL Potassium (3.5-5.1) mmol/L BUN (9-20) mg/dL Glucose (74-99) mg/dL POC Glucose (mg/dL) 158 H (70-110) mg/dL Calcium (8.4-10.2) mg/dL Microbiology - Last 24 Hours (Table) 06/03/22 17:45 Blood Culture - Preliminary Blood No Growth after 24 hours 06/03/22 12:25 Blood Culture - Preliminary Blood No Growth after 24 hours 06/03/22 12:10 Blood Culture - Preliminary Blood No Growth after 24 hours 06/04/22 00:45 Sputum Culture - Preliminary Sputum
--- NOTE | 2022-06-05 10:25 | P.PN ---
Subjective Progress Note Date: 06/05/22 The patient is seen at bedside and per nurse is about the same. He is on IV Propofol 10mcg/kg/min. Yesterday I had a discussed with the patient's regarding his condition. Objective - Vital Signs Vital signs: Vital Signs Temp 98.9 F 06/05/22 08:00 Pulse 112 H 06/05/22 08:00 Resp 19 06/05/22 08:00 BP 98/60 06/04/22 00:00 Pulse Ox 98 06/05/22 08:00 FiO2 40 06/05/22 08:00 Intake & Output 06/04/22 06/05/22 06/05/22 18:59 06:59 18:59 Intake Total 1628.548 861.547 48.624 Output Total 2065 1605 Balance -436.452 -743.453 48.624 Weight 53.9 kg Intake: IV 958 309 Sodium Chloride 0.9% 1, 825 270 000 ml @ 10 mls/hr IV . Q24H [facility] Rx#:[id number] levETIRAcetam IV 1,000 mg 100 In Saline 1 100ml.bag @ 400 mls/hr IVPB [facility]CE [facility] Rx#:[id number] pressure bags 33 39 Intake, IV Titration 540.548 60.547 48.624 Amount Heparin Sod,Pork in 0.45% 120.256 24.131 48.624 NaCl 25,000 unit In 0.45 % NaCl 1 250ml.bag @ 18 UNITS/KG/HR 9.798 mls/hr IV .Q24H [facility] Rx#: [id number] Magnesium Sulfate-D5w Pmx 100 1 gm In Dextrose/Water 1 100ml.bag @ 100 mls/hr IVPB Q1H [facility] Rx#: [id number] Norepinephrine 4 mg In 144.411 Sodium Chloride 0.9% 250 ml @ 0.05 MCG/KG/MIN 10. 369 mls/hr IV .Q24H [facility] Rx#:[id number] Piperacillin-Tazobactam 3 100 .375 gm In Sodium Chloride 0.9% 100 ml @ 25 mls/hr IVPB Q8HR [facility] Rx# :[id number] propofoL 1,000 mg In 75.881 36.416 Empty Bag 1 bag @ 5 MCG/ KG/MIN 1.633 mls/hr IV . Q24H [facility] Rx#:[id number] Tube Feeding 100 402 Other 30 90 Output: Urine 2065 1605 Other: Voiding Method Indwelling Catheter Indwelling Catheter ABP, PAP, CO, CI - Last Documented Arterial Blood Pressure 156/62 - Exam GENERAL: The patient is lying in bed and does not appear in acute distress. LUNG: Clear to auscultation bilaterally no wheezing noted throughout. Not labor ed breathing. Intubated on ventilator. NEUROLOGICAL: Limited because of his condition. IV Propofol 10mcg/kg/min Higher mental function: Patient is comatose. GCS3 (E1, VT1, M1). No responsive or following commands. Cranial nerves: I had to manually open his eyes. Primary gaze is midline. The right pupil is 2mm and sluggishly reactive to light. While the left eye is opacified that is grayish is coloration. Negative corneal, occulocephalic. No facial weakness. Has intact cough and gag reflex. Is breathing over the vent. Motor: The strength is hard to assess. No spontaneous movement. No withdrawal to movement to painful stimuli throughout. Decrease tone throughout. Normal b ulk. Cerebellum: Unable to assess. Sensation: Not withdrawal or grimacing face to painful stimuli throughout. Reflexes (right/left): 1+ throughout except left knee is 0. Plantars are mute bilaterally. Some of the workup in the ED consisted of: Coronavirus patient are not detected CT of the head is reported as degenerative and nonspecific white matter changes most typical of remote ischemia. No acute hemorrhage or mass effect with MRI as clinically warranted. I personally reviewed the CT of the head and I don't feel there is any acute subacute ischemia there is no intracranial hemorrhage, there is no mass effect. Routine EEG on 06/03/2022 is abnormal. The generalized polyspike increases risk for myoclonic seizure. Otherwise the background is suppressed over the bilateral hemisphere and one of the possibilities is due to medication effect (high dose Ativan and on IV propofol) and another possibility is due to anoxia from cardiopulmonary arrest. There is no seizure detected during the study. Cortical correlation is recommended. Repeat routine EEG on 06/04/2022: Is abnormal. The back was slowing suggestive of moderate to severe encephalopathy. There is no focal slowing, epileptiform discharges or seizure on the EEG. Clinical correlation is recommended. Compared to the ED on 06/03/2022 this EEG is a somewhat better Repeat CT of the head on 06/04/2022 is reported as no acute intracranial hemorrhage or midline shift. There is mild diffuse age-related cerebral atrophy and mild nonspecific white matter changes favoring product of chronic small vessel ischemic changes and patient that this age redemonstrated. No significant change from a day earlier. I personally reviewed CT head and agree with report. 2-D echo was reported as moderate to severe left ventricular hypertrophy with septal and posterior wall diastolic thickness 1.6-1.8 cm. Ejection fraction of 25%. Mild to moderate aortic regurgitation. Left atrial size at the upper limits of normal. - Labs CBC & Chem 7: 06/05/22 03:55 06/05/22 03:55 Labs: Abnormal Lab Results - Last 24 Hours (Table) 06/04/22 06/04/22 06/04/22 Range/Units 12:52 15:50 18:50 WBC (3.8-10.6) k/uL RBC (4.30-5.90) m/uL Hgb (13.0-17.5) gm/dL Plt Count (150-450) k/uL Neutrophils # (1.3-7.7) k/uL Lymphocytes # (1.0-4.8) k/uL APTT 182.0 H* (22.0-30.0) sec ABG pH (7.35-7.45) ABG pCO2 (35-45) mmHg ABG HCO3 (21-25) mmol/L ABG Total CO2 (19-24) mmol/L ABG O2 Saturation (94-97) % Hemoglobin (13.0-17.5) gm/dL Potassium 3.3 L (3.5-5.1) mmol/L BUN (9-20) mg/dL Glucose (74-99) mg/dL POC Glucose (mg/dL) 141 H (70-110) mg/dL Calcium (8.4-10.2) mg/dL 06/04/22 06/05/22 06/05/22 Range/Units 23:35 01:00 03:55 WBC 17.3 H (3.8-10.6) k/uL RBC 4.07 L (4.30-5.90) m/uL Hgb 12.5 L (13.0-17.5) gm/dL Plt Count 129 L (150-450) k/uL Neutrophils # 15.5 H (1.3-7.7) k/uL Lymphocytes # 0.9 L (1.0-4.8) k/uL APTT 60.0 H (22.0-30.0) sec ABG pH (7.35-7.45) ABG pCO2 (35-45) mmHg ABG HCO3 (21-25) mmol/L ABG Total CO2 (19-24) mmol/L ABG O2 Saturation (94-97) % Hemoglobin (13.0-17.5) gm/dL Potassium (3.5-5.1) mmol/L BUN (9-20) mg/dL Glucose (74-99) mg/dL POC Glucose (mg/dL) 175 H (70-110) mg/dL Calcium (8.4-10.2) mg/dL 06/05/22 06/05/22 06/05/22 Range/Units 03:55 05:44 05:45 WBC (3.8-10.6) k/uL RBC (4.30-5.90) m/uL Hgb (13.0-17.5) gm/dL Plt Count (150-450) k/uL Neutrophils # (1.3-7.7) k/uL Lymphocytes # (1.0-4.8) k/uL APTT 51.8 H (22.0-30.0) sec ABG pH 7.34 L (7.35-7.45) ABG pCO2 59 H (35-45) mmHg ABG HCO3 32 H (21-25) mmol/L ABG Total CO2 34 H (19-24) mmol/L ABG O2 Saturation 98.0 H (94-97) % Hemoglobin 12.6 L (13.0-17.5) gm/dL Potassium (3.5-5.1) mmol/L BUN 30 H (9-20) mg/dL Glucose 157 H (74-99) mg/dL POC Glucose (mg/dL) (70-110) mg/dL Calcium 7.9 L (8.4-10.2) mg/dL 06/05/22 Range/Units 05:46 WBC (3.8-10.6) k/uL RBC (4.30-5.90) m/uL Hgb (13.0-17.5) gm/dL Plt Count (150-450) k/uL Neutrophils # (1.3-7.7) k/uL Lymphocytes # (1.0-4.8) k/uL APTT (22.0-30.0) sec ABG pH (7.35-7.45) ABG pCO2 (35-45) mmHg ABG HCO3 (21-25) mmol/L ABG Total CO2 (19-24) mmol/L ABG O2 Saturation (94-97) % Hemoglobin (13.0-17.5) gm/dL Potassium (3.5-5.1) mmol/L BUN (9-20) mg/dL Glucose (74-99) mg/dL POC Glucose (mg/dL) 158 H (70-110) mg/dL Calcium (8.4-10.2) mg/dL Microbiology - Last 24 Hours (Table) 06/03/22 17:45 Blood Culture - Preliminary Blood No Growth after 24 hours 06/03/22 12:25 Blood Culture - Preliminary Blood No Growth after 24 hours 06/03/22 12:10 Blood Culture - Preliminary Blood No Growth after 24 hours 06/04/22 00:45 Sputum Culture - Preliminary Sputum Assessment and Plan Assessment: Acute Cardiopulmonary arrest. Initial ryhytm reported is PEA. Unknown down time but he was reported to be found down by EMS around 8:48AM (per probably was down not too far out from EMS arrival). ROSC achieved at 9:09 Anoxic encephalopathy/brain injury (cannot determine extent of brain injury at this time) due to cardiopulmonary arrest. Small component due to sedation IV propofol. Myoclonic seizure due to cardiopulmonary arrest--resolved Acute hypoxic respiratory failure intubated and on mechanical ventilatory Cardiomyopathy with global hypokinesis. Moderate and aortic regurgitation Elevated troponin Plan: Continue Keppra 1gm IV every 12 hours. Cardiology team is on board. Rule out any underlying infection since had two low grave fever with leukocytosis. Patient is on Zosyn per ICU team. We'll defer the rest of the medical management to the primary and ICU team The patient condition is very critical and prognosis appears poor. The plan is discussed with the patient's nurse. Neo Monet M.D. Neuro-hospitalist Time with Patient: Less than 30
[2022-06-05] MEDS: METOPROLOL TARTRATE 25 MG TAB PO SCH ×2 (10:30→20:33)
[2022-06-05] MEDS: ASPIRIN 81 MG PO SCH (10:30)
[2022-06-05] MEDS: FUROSEMIDE 10 MG/ML 4 ML VIAL IV SCH ×2 (10:30→20:28)
[2022-06-05] MEDS: levETIRAcetam IV 1,000 MG in SALINE 1 100ML.BAG IVPB SCH ×2 (10:30→20:28)
[2022-06-05 11:28] LABS: Glucose,Whole Blood 184 mg/dL (70-110)
--- NOTE | 2022-06-05 12:52 | P.PN ---
Subjective Progress Note Date: 06/05/22 86-year-old male patient, healthy with a previous history of COVID 19 infections occurred in 2020 from which the patient recovers. The patient's collapsed at home and the patient was found to be completely unresponsive by the . The patient is of origin and there is a communication barrier be tween us and the family. Based on the EMS sheets, the patient was completely unresponsive. The patient was intubated on the scene. He was given epinephrine 2, CPR and he was in PEA . The EMS arrived to the scene on 8:48 AM. Initial blood pressure recording was done on 9:14 AM where the blood pressure was reported to be 56/27 with a pulse of 50. The cardiac rhythm was sinus bradycardia. The patient got transferred to our emergency department following that. According to the records, the return of spontaneous circulation was on 90 9 AM. When the patient another arrived to the emergency department, he had a good pulse without being paced and the blood pressure was within normal limits. His initial blood pressure was 112/96 and his pulse ox was 98%. The patient was given EKG that showed a right bundle branch block pattern, a wide-complex rhythm, probably with underlying first-degree AV block. Cardiology was involved and the Foreclosure Specialist was not activated. CAT scan of the brain showed acute abnormalities. CAT scan of the chest showed no evidence of any pulmonary embolism there was diffuse bilateral pulmonary infiltrates in the mid and lower lung [place] bilaterally consistent with pneumonia over CHF. The patient was given a dose of Rocephin and vancomycin. The patient got moved to the intensive care unit. At this point in time, the patient is completely unresponsive. He is having some occasional myoclonic jerks. His temperature is currently at 98. He is on propofol which is running at 10 mcg/kg per minute. He is not following any verbal commands or painful stimulation. Whenever stimulated, he goes into episodic myoclonic jerks. The patient on a mechanical ventilator on assist control mode at a rate of 14 with a tidal volume of 400 and FiO2 of 80% with asp irin. The blood. His were noted. Initial blood gas that was obtainedIn the hospital showed a pH of 7.11 with a pCO2 of 51 and pO2 of 59 and this was on FiO2 of 100%. Subsequently, there was some difficulty in accepting the patient emergency. He was placed on a PEEP of 10 and repeat blood gases showed a pH of 7.4 with a pCO2 of 21 and pO2 of 55. Most recent blood gases after arrival to the ICU shows a pH of 7.34 with a pCO2 of 36 and pO2 of 329. Initial lactic acid level is at 6.0. Cognitive testing was negative. Electrolytes show a component of an underlying metabolic acidosis with a gap of 16 and a bicarb level of 15. Glucose is 261. Sodium is at 141. Electrocardiogram 13.2 and elevated count of 151. Coagulation profile within normal limits. D-dimer was at 19.2. Initial troponin was 0.278. CAT scan of the brain showed chronic atrophy, without any acute abnormalities. No evidence of any hemorrhage and the findings were essentially nonspecific with white matter changes typical of remote ischemia. 06/04/2022, I'm seeing the patient for a follow-up. The patient remains intubated on a mechanical ventilator. Neurologically, the patient is not having any myoclonic jerks. The patient was given a total of 12 mg of Ativan yesterday in addition to propofol and Keppra. Since then, the patient underwent an EEG and there was no evidence of any seizure activity. Neurology on the case and the repeat EEG and a CAT scan of the brain will be done today. Meanwhile, the susana cuevas remains intubated on mechanical ventilator. The patient is on propofol running at 20 mg/kg per minute. The patient on normal saline at the rate of 75 mL an hour and the patient remains on norepinephrine at 0.08 mcg/kg per minute. The patient's lactic acid level is down to 1.6. Troponin was initially negative later on came up to 15 and to 20 consistent with acute non-ST segment elevation myocardial infarction. Echo was done and the patient has an ejection fraction of 25%. Remains on a mechanical ventilator on assist control mode at the rate of 14 with a tidal volume of 400 and FiO2 of 50% with a PEEP of 5. The pH is 7.38 with a pCO2 of 37 and pO2 167. The echoes a 24 with hemoglobin 13.4 and a platelet count of 153. Sodium is at 130s with a potassium level of 01/05/2009 bicarb of 21 BUN is 27 and creatinine is 0.9. The chest x-ray showing diffuse bilateral pulmonary infiltrates consistent with acute pulmonary edema. The patient is afebrile. The patient is producing adequate amount of urine output at this point in time. The patient also is on IV heparin for now. The patient is also on IV Zosyn as an empiric antibiotic coverage. 06/05/2023, the patient remains unresponsive. The patient was given a sedation holiday this morning and she was taken off propofol and within 30 minutes, the patient became tachypneic and tachycardic and he started biting and she will cough and and he had to be placed back on sedation and the patient is currently on low-dose propofol at 10 mcg/kg per minute. Note that the CAT scan of the brain was repeated twice and showed cerebral atrophy and the EEG was showing slowing and this was generalized slowing and there was no evidence of any focal seizures. The patient remains intubated on a mechanical ventilator. Hemodyn amically stable on no pressors. His fluid balance is -1.1 L of the patient was given diuretics and the chest x-ray showing improvement in the pulmonary edema. The patient was started on enteral feeding for nutritional support and the patient's current vital high protein at the rate of 41 mL an hour. The patient remains on a mechanical ventilator on assist control mode of mechanical ventilation with a rate of 14 with a tidal volume of 400 and FiO2 of 40% with a PEEP of 8. Blood gases from today shows a pH of 7.34 with pCO2 59 and pO2 of 100. The white cell count at 17.3 with a hemoglobin of 12.5 and a platelet count of 123. Sodium is at 140 with a potassium level of 3.6 and the BUN of 30 with a creatinine of 0.9. No fever. No seizure activity has been noted. The patient remains on IV Zosyn as an empiric antibiotic coverage. The patient is also on IV heparin. IV fluids and currently at [facility]. Objective - Vital Signs Vital signs: Vital Signs Temp 98.9 F 06/05/22 08:00 Pulse 95 06/05/22 11:00 Resp 15 06/05/22 11:00 BP 98/60 06/04/22 00:00 Pulse Ox 99 06/05/22 11:00 FiO2 40 06/05/22 11:27 Intake & Output 06/04/22 06/05/22 06/05/22 18:59 06:59 18:59 Intake Total 1628.548 861.547 162.624 Output Total 2065 1605 165 Balance -436.452 -743.453 -2.376 Weight 53.9 kg Intake: IV 958 309 114 Piperacillin-Tazobactam 3 75 .375 gm In Sodium Chloride 0.9% 100 ml @ 25 mls/hr IVPB Q8HR [facility] Rx# :[id number] Sodium Chloride 0.9% 1, 825 270 30 000 ml @ 10 mls/hr IV . Q24H [facility] Rx#:[id number] levETIRAcetam IV 1,000 mg 100 In Saline 1 100ml.bag @ 400 mls/hr IVPB ONCE [facility] Rx#:[id number] pressure bags 33 39 9 Intake, IV Titration 540.548 60.547 48.624 Amount Heparin Sod,Pork in 0.45% 120.256 24.131 48.624 NaCl 25,000 unit In 0.45 % NaCl 1 250ml.bag @ 18 UNITS/KG/HR 9.798 mls/hr IV .Q24H [facility] Rx#: [id number] Magnesium Sulfate-D5w Pmx 100 1 gm In Dextrose/Water 1 100ml.bag @ 100 mls/hr IVPB Q1H [facility] Rx#: [id number] Norepinephrine 4 mg In 144.411 Sodium Chloride 0.9% 250 ml @ 0.05 MCG/KG/MIN 10. 369 mls/hr IV .Q24H [facility] Rx#:[id number] Piperacillin-Tazobactam 3 100 .375 gm In Sodium Chloride 0.9% 100 ml @ 25 mls/hr IVPB Q8HR [facility] Rx# :[id number] propofoL 1,000 mg In 75.881 36.416 Empty Bag 1 bag @ 5 MCG/ KG/MIN 1.633 mls/hr IV . Q24H [facility] Rx#:[id number] Tube Feeding 100 402 Other 30 90 Output: Urine 2065 1605 165 Other: Voiding Method Indwelling Catheter Indwelling Catheter Indwelling Catheter ABP, PAP, CO, CI - Last Documented Arterial Blood Pressure 138/61 - Exam Intubated on a mechanical ventilator. The patient is showing no seizure activity.. Orogastric and orotracheal tube are both in place. The patient is sedated with low-dose propofol Head exam was generally normal. There was no scleral icterus or corneal arcus. Mucous membranes were moist. Neck was supple and without jugular venous distension, thyromegaly, or carotid bruits. Carotids were easily palpable bilaterally. There was no adenopathy. Lungs are diminished and the patient has some limited bibasilar crackles Cardiac exam revealed the PMI to be normally situated and sized. The rhythm was regular and no extrasystoles were noted during several minutes of auscultation. The first and second heart sounds were normal and physiologic splitting of the second heart sound was noted. There were no murmurs, rubs, clicks, or gallops. Abdominal exam revealed normal bowel sounds. The abdomen was soft, non-tender, and without masses, organomegaly, or appreciable enlargement of the abdominal aorta. Examination of the extremities revealed easily palpable radial, femoral and pedal pulses. There was no cyanosis, clubbing or edema. Examination of the skin revealed no evidence of significant rashes, suspicious appearing nevi or other concerning lesions. Neurologically the patient is completely unresponsive. The patient's left eye is completely opacified because of a previous cataract or coma. Right eye is around 3 mm in size, sluggishly reactive to light. No nystagmus. No preferential gaze. He has a positive cough and gag. He has occasional myoclonic jerks. Reflexes are diminished over extremities and motor and sensory function cannot be obtained. No facial asymmetry. Sensory functions cannot be obtained. Gait cannot be assessed. - Labs CBC & Chem 7: 06/05/22 03:55 06/05/22 03:55 Labs: Abnormal Lab Results - Last 24 Hours (Table) 06/04/22 06/04/22 06/04/22 Range/Units 12:52 15:50 18:50 WBC (3.8-10.6) k/uL RBC (4.30-5.90) m/uL Hgb (13.0-17.5) gm/dL Plt Count (150-450) k/uL Neutrophils # (1.3-7.7) k/uL Lymphocytes # (1.0-4.8) k/uL APTT 182.0 H* (22.0-30.0) sec ABG pH (7.35-7.45) ABG pCO2 (35-45) mmHg ABG HCO3 (21-25) mmol/L ABG Total CO2 (19-24) mmol/L ABG O2 Saturation (94-97) % Hemoglobin (13.0-17.5) gm/dL Potassium 3.3 L (3.5-5.1) mmol/L BUN (9-20) mg/dL Glucose (74-99) mg/dL POC Glucose (mg/dL) 141 H (70-110) mg/dL Calcium (8.4-10.2) mg/dL 06/04/22 06/05/22 06/05/22 Range/Units 23:35 01:00 03:55 WBC 17.3 H (3.8-10.6) k/uL RBC 4.07 L (4.30-5.90) m/uL Hgb 12.5 L (13.0-17.5) gm/dL Plt Count 129 L (150-450) k/uL Neutrophils # 15.5 H (1.3-7.7) k/uL Lymphocytes # 0.9 L (1.0-4.8) k/uL APTT 60.0 H (22.0-30.0) sec ABG pH (7.35-7.45) ABG pCO2 (35-45) mmHg ABG HCO3 (21-25) mmol/L ABG Total CO2 (19-24) mmol/L ABG O2 Saturation (94-97) % Hemoglobin (13.0-17.5) gm/dL Potassium (3.5-5.1) mmol/L BUN (9-20) mg/dL Glucose (74-99) mg/dL POC Glucose (mg/dL) 175 H (70-110) mg/dL Calcium (8.4-10.2) mg/dL 06/05/22 06/05/22 06/05/22 Range/Units 03:55 05:44 05:45 WBC (3.8-10.6) k/uL RBC (4.30-5.90) m/uL Hgb (13.0-17.5) gm/dL Plt Count (150-450) k/uL Neutrophils # (1.3-7.7) k/uL Lymphocytes # (1.0-4.8) k/uL APTT 51.8 H (22.0-30.0) sec ABG pH 7.34 L (7.35-7.45) ABG pCO2 59 H (35-45) mmHg ABG HCO3 32 H (21-25) mmol/L ABG Total CO2 34 H (19-24) mmol/L ABG O2 Saturation 98.0 H (94-97) % Hemoglobin 12.6 L (13.0-17.5) gm/dL Potassium (3.5-5.1) mmol/L BUN 30 H (9-20) mg/dL Glucose 157 H (74-99) mg/dL POC Glucose (mg/dL) (70-110) mg/dL Calcium 7.9 L (8.4-10.2) mg/dL 06/05/22 06/05/22 Range/Units 05:46 11:26 WBC (3.8-10.6) k/uL RBC (4.30-5.90) m/uL Hgb (13.0-17.5) gm/dL Plt Count (150-450) k/uL Neutrophils # (1.3-7.7) k/uL Lymphocytes # (1.0-4.8) k/uL APTT (22.0-30.0) sec ABG pH (7.35-7.45) ABG pCO2 (35-45) mmHg ABG HCO3 (21-25) mmol/L ABG Total CO2 (19-24) mmol/L ABG O2 Saturation (94-97) % Hemoglobin (13.0-17.5) gm/dL Potassium (3.5-5.1) mmol/L BUN (9-20) mg/dL Glucose (74-99) mg/dL POC Glucose (mg/dL) 158 H 184 H (70-110) mg/dL Calcium (8.4-10.2) mg/dL Microbiology - Last 24 Hours (Table) 06/03/22 17:45 Blood Culture - Preliminary Blood No Growth after 24 hours 06/03/22 12:25 Blood Culture - Preliminary Blood No Growth after 24 hours 06/03/22 12:10 Blood Culture - Preliminary Blood No Growth after 24 hours 06/04/22 00:45 Sputum Culture - Preliminary Sputum Assessment and Plan Plan: Acute cardiac arrest most likely secondary to an acute non-ST segment elevation myocardial infarction. The patient's severe cardiomyopathy with ejection fraction of 25%. Troponin peaked at 20. The patient is currently on IV heparin. The patient on norepinephrine for blood pressure support. Note that the patient was in a PEA rhythm at a time of initial evaluation. EMS arrived to the scene at 8:48 AM and there are reports of return of spontaneous circulation at 9:09 AM. The blood pressure however was quite low and subsequent blood pressures were quite low. The patient arrived to the burst department with a n ormal sinus rhythm with a first-degree AV block and a RBBB pattern. The patient remains hemodynamically stable and no cardiac arrhythmias of been noted since admission. Acute hypoxic respiratory failure currently intubated on a mechanical ventilator Acute pulmonary edema secondary to above, improving as the patient was diuresed with IV Lasix and the patient is in a negative fluid balance Severe cardiomyopathy, likely ischemic with an ejection fraction of 25% Anoxic encephalopathy, clinically suspected due to cardiac arrest, currently seizure free, and the patient remains on propofol, while off for the patient remains unresponsive Episodic myoclonic jerks probably a representation of anoxic encephalopathy, currently seizure free and repeat EEG showed no acute abnormalities to indicate seizure activity. lactic acidosis with initial lactic acid level of 6 , due to cardiac arrest, r ecovered and normalized Acute leukocytosis, likely reactive, improving Hyperglycemic, likely reactive, currently on sliding scale insulin coverage Enteral feeding for nutritional support Plan Continue ventilator support. Keep the same ventilator settings and drop the PEEP down to 5 The patient is sedated with propofol Repeat EEGwas noted and there is no evidence of any active seizure activity CAT scan of the brain is negative The patient is currently off pressors Change IV fluids to KVO Lasix 40 mg IV every 12 hours continue Zosyn for now *Enteral feeding for nutritional support and the patient is on vital high protein Start the patient on metoprolol 25 mg twice a day Aspirin 81 mg by mouth daily stop the IV heparin Lovenox 40 mg subcu for DVT prophylaxis IV Protonix Condition is critical we will continue to follow This is a critically care evaluation was done more than 30 minutes. Long-term prognosis poor baseline above-mentioned comorbidities. Time with Patient: Greater than 30
[2022-06-05] MEDS: ENOXAPARIN 40 MG/0.4 ML SYRINGE SQ SCH (13:10)
[2022-06-05] MEDS ORDERED: DEXTROSE 50% SYRINGE 50 ML IVP PRN ×2 (15:34)
--- NOTE | 2022-06-05 15:35 | P.PN ---
Subjective Progress Note Date: 06/05/22 This is an 86 year old male who is brought into the hospital after being found unresponsive. He is currently intubated and being monitored in intensive care unit. Patient is on mechanical ventilator with FiO2 of 40%, afebrile, blood pressure 119/48. Patient is being followed up pulmonary head machine feeder, cardiology and neurology. Patient underwent EEG yesterday showing a generalized polyspike that increases risk for myoclonic seizure, additional findings in report suggest medication effect versus anoxia. Patient did have propofol paused this morning per nursing he experienced tachycardia during that time and propofol was restarted. Patient is not currently displaying myoclonus per reports he as having myoclonic jerks yesterday. Echocardiogram showing an EF of 25% with global hypokinesis also has troponin elevation. Patient had repeat chest xray today showing diffuse bilateral infiltrates greater on the left correlate for pulmonary edema versus pneumonia. Sputum and blood culture is currently pending. He is continued on IV zosyn. He received a dose of IV lasix today. Patient also continues on IV keppra. Patient is also on heparin infusion. Plan to start patient on enteral feedings today. Repeat EEG and brain CT pending. Labs today showing a white count of 21.4, neutrophils 19.4, BUN 27, creatinine 0.95, sodium 138, potassium 4.0, chloride 109, CO2 21, magnesium 1.8, AST 178, ALT 59, alk ph os 60. His procalcitonin yesterday is 4.05. Lactic acid has improved to 1.9. 06/05/2022 Patient evaluated in the ICU continues on mechanical ventilator with FIO2 of 40% currently with oxygen saturation of 99%. He had sedation holiday today and was minimally responsive. He did get agitated and also tachycardic while off the propofol. He had repeat EEG yesterday still with significant encephalopathy moderate to severe, which neurology felt was slightly improved from EEG. No epileptiform acitivty noted. He had brain CT reported yesterday which was negative for acute subacute ischemia. Neurology is following, he is continued on IV keppra. He continues on zosyn, has had low grade fever t max 100 overnight. He had repeat chest xray today showing diffuse bilateral infiltrates with left greater than right with small left pleural effusion. Correlate for pulmonary edema versus pneumonia. Blood culture and sputum culture are currently pending. He had IV lasix 40 mg x 1 yesterday. Patient has been started on enteral tube feedings, and tolerating well. No BM, his bowels are more active than yesterday. He has indwelling catheter in place. White count today is improved slightly 17.3, hgb 12.5, sodium 130, potassium 3.6, BUN 30, creatinine 0.90, glucose 150s, calcium 7.9. Unable to complete full review of systems as patient is currently intubated in ICU. PHYSICAL EXAMINATION: GENERAL: The patient is currently intubated. Well developed, well nourished. HEENT: Pupils are round and equally reacting to light. EOMI. No scleral icterus. No conjunctival pallor. Normocephalic, atraumatic. No pharyngeal erythema. No thyromegaly. CARDIOVASCULAR: S1 and S2 present. No murmurs, rubs, or gallops. PULMONARY: Scattered rhonchi ABDOMEN: Soft, nontender, nondistended, hypoactive bowel sounds. No palpable organomegaly. Indwelling catheter in place. MUSCULOSKELETAL: No joint swelling or deformity. EXTREMITIES: No cyanosis, clubbing, or pedal edema. NEUROLOGICAL: Unable to complete focal neurological exam patient is intubated and sedated in ICU. SKIN: No rashes. Assessment and plan Assessment Acute cardiac arrest possibly from acute Non ST elevation AL Possible anoxic encephalopathy Acute hypoxic respiratory failure on mechanical ventilation Myoclonus jerks, on IV Keppra empirically Leukocytosis Lactic acidosis, improved Non-anion gap metabolic acidosis secondary to lactic acidosis, improved Elevated liver enzymes possible from hepatic congestion GI Prophylaxis, IV protonix DVT Prophylaxis Lovenox Full Code Plan Continue monitoring patient in intensive care unit, on mechanical ventilator Neurology consultation Cardiology recommending cardiac catheterization when respiratory status improves Started on IV lasix 40 Q12 Insulin has been adjusted Continues on empiric antibiotic coverage Patient is continued on propofol Prognosis remains guarded at this time The impression and plan of care has been dictated by Brittney Pereira Nurse Practitioner as directed. Dr. Kassi MD I have performed a history and physical examination and medical decision making of this patient, discussed the same with the dictator, and agree with the dictators assessment and plan as written, documented as a scribe. Based on total visit time, I have performed more than 50% of this visit. Objective - Vital Signs Vital signs: Vital Signs Temp 98.9 F 06/05/22 08:00 Pulse 95 06/05/22 11:00 Resp 15 06/05/22 11:00 BP 98/60 06/04/22 00:00 Pulse Ox 99 06/05/22 11:00 FiO2 40 06/05/22 11:27 Intake & Output 06/04/22 06/05/22 06/05/22 18:59 06:59 18:59 Intake Total 1628.548 861.547 162.624 Output Total 2065 1605 165 Balance -436.452 -743.453 -2.376 Weight 53.9 kg Intake: IV 958 309 114 Piperacillin-Tazobactam 3 75 .375 gm In Sodium Chloride 0.9% 100 ml @ 25 mls/hr IVPB Q8HR [facility] Rx# :[id number] Sodium Chloride 0.9% 1, 825 270 30 000 ml @ 10 mls/hr IV . Q24H [facility] Rx#:[id number] levETIRAcetam IV 1,000 mg 100 In Saline 1 100ml.bag @ 400 mls/hr IVPB ONCE [facility]A Rx#:[id number] pressure bags 33 39 9 Intake, IV Titration 540.548 60.547 48.624 Amount Heparin Sod,Pork in 0.45% 120.256 24.131 48.624 NaCl 25,000 unit In 0.45 % NaCl 1 250ml.bag @ 18 UNITS/KG/HR 9.798 mls/hr IV .Q24H [facility] Rx#: [id number] Magnesium Sulfate-D5w Pmx 100 1 gm In Dextrose/Water 1 100ml.bag @ 100 mls/hr IVPB Q1H [facility] Rx#: [id number] Norepinephrine 4 mg In 144.411 Sodium Chloride 0.9% 250 ml @ 0.05 MCG/KG/MIN 10. 369 mls/hr IV .Q24H [facility] Rx#:[id number] Piperacillin-Tazobactam 3 100 .375 gm In Sodium Chloride 0.9% 100 ml @ 25 mls/hr IVPB Q8HR [facility] Rx# :[id number] propofoL 1,000 mg In 75.881 36.416 Empty Bag 1 bag @ 5 MCG/ KG/MIN 1.633 mls/hr IV . Q24H [facility] Rx#:[id number] Tube Feeding 100 402 Other 30 90 Output: Urine 2065 1605 165 Other: Voiding Method Indwelling Catheter Indwelling Catheter Indwelling Catheter ABP, PAP, CO, CI - Last Documented Arterial Blood Pressure 138/61 - Labs CBC & Chem 7: 06/05/22 03:55 06/05/22 03:55 Labs: Abnormal Lab Results - Last 24 Hours (Table) 06/04/22 06/04/22 06/04/22 Range/Units 12:52 15:50 18:50 WBC (3.8-10.6) k/uL RBC (4.30-5.90) m/uL Hgb (13.0-17.5) gm/dL Plt Count (150-450) k/uL Neutrophils # (1.3-7.7) k/uL Lymphocytes # (1.0-4.8) k/uL APTT 182.0 H* (22.0-30.0) sec ABG pH (7.35-7.45) ABG pCO2 (35-45) mmHg ABG HCO3 (21-25) mmol/L ABG Total CO2 (19-24) mmol/L ABG O2 Saturation (94-97) % Hemoglobin (13.0-17.5) gm/dL Potassium 3.3 L (3.5-5.1) mmol/L BUN (9-20) mg/dL Glucose (74-99) mg/dL POC Glucose (mg/dL) 141 H (70-110) mg/dL Calcium (8.4-10.2) mg/dL 06/04/22 06/05/22 06/05/22 Range/Units 23:35 01:00 03:55 WBC 17.3 H (3.8-10.6) k/uL RBC 4.07 L (4.30-5.90) m/uL Hgb 12.5 L (13.0-17.5) gm/dL Plt Count 129 L (150-450) k/uL Neutrophils # 15.5 H (1.3-7.7) k/uL Lymphocytes # 0.9 L (1.0-4.8) k/uL APTT 60.0 H (22.0-30.0) sec ABG pH (7.35-7.45) ABG pCO2 (35-45) mmHg ABG HCO3 (21-25) mmol/L ABG Total CO2 (19-24) mmol/L ABG O2 Saturation (94-97) % Hemoglobin (13.0-17.5) gm/dL Potassium (3.5-5.1) mmol/L BUN (9-20) mg/dL Glucose (74-99) mg/dL POC Glucose (mg/dL) 175 H (70-110) mg/dL Calcium (8.4-10.2) mg/dL 06/05/22 06/05/22 06/05/22 Range/Units 03:55 05:44 05:45 WBC (3.8-10.6) k/uL RBC (4.30-5.90) m/uL Hgb (13.0-17.5) gm/dL Plt Count (150-450) k/uL Neutrophils # (1.3-7.7) k/uL Lymphocytes # (1.0-4.8) k/uL APTT 51.8 H (22.0-30.0) sec ABG pH 7.34 L (7.35-7.45) ABG pCO2 59 H (35-45) mmHg ABG HCO3 32 H (21-25) mmol/L ABG Total CO2 34 H (19-24) mmol/L ABG O2 Saturation 98.0 H (94-97) % Hemoglobin 12.6 L (13.0-17.5) gm/dL Potassium (3.5-5.1) mmol/L BUN 30 H (9-20) mg/dL Glucose 157 H (74-99) mg/dL POC Glucose (mg/dL) (70-110) mg/dL Calcium 7.9 L (8.4-10.2) mg/dL 06/05/22 06/05/22 Range/Units 05:46 11:26 WBC (3.8-10.6) k/uL RBC (4.30-5.90) m/uL Hgb (13.0-17.5) gm/dL Plt Count (150-450) k/uL Neutrophils # (1.3-7.7) k/uL Lymphocytes # (1.0-4.8) k/uL APTT (22.0-30.0) sec ABG pH (7.35-7.45) ABG pCO2 (35-45) mmHg ABG HCO3 (21-25) mmol/L ABG Total CO2 (19-24) mmol/L ABG O2 Saturation (94-97) % Hemoglobin (13.0-17.5) gm/dL Potassium (3.5-5.1) mmol/L BUN (9-20) mg/dL Glucose (74-99) mg/dL POC Glucose (mg/dL) 158 H 184 H (70-110) mg/dL Calcium (8.4-10.2) mg/dL Microbiology - Last 24 Hours (Table) 06/03/22 17:45 Blood Culture - Preliminary Blood No Growth after 24 hours 06/03/22 12:25 Blood Culture - Preliminary Blood No Growth after 24 hours 06/03/22 12:10 Blood Culture - Preliminary Blood No Growth after 24 hours 06/04/22 00:45 Sputum Culture - Preliminary Sputum Assessment and Plan Time with Patient: Less than 30
[2022-06-05] MEDS: ACETAMINOPHEN IV (For NPO) 1,000 MG in EMPTY BAG 1 BAG IVPB SCH (17:05)
[2022-06-05 18:28] LABS: Glucose,Whole Blood 171 mg/dL (70-110)
[2022-06-05] MEDS: NOREPINEPHRINE 4 MG in SODIUM CHLORIDE 0.9% 250 ML IV SCH (20:22)
[2022-06-05] MEDS ORDERED: INSULIN DETEMIR (LEVEMIR) 100 UNIT/ML SYR SQ SCH (21:00)
[2022-06-05 22:58] LABS: Magnesium 2.2 mg/dL (1.6-2.3); Potassium 3.9 mmol/L (3.5-5.1)
[2022-06-05 23:33] LABS: Glucose,Whole Blood 197 mg/dL (70-110)
[2022-06-06] MEDS: ACETAMINOPHEN IV (For NPO) 1,000 MG in EMPTY BAG 1 BAG IVPB SCH ×3 (00:02→16:49)
[2022-06-06] MEDS: NOREPINEPHRINE 4 MG in SODIUM CHLORIDE 0.9% 250 ML IV SCH (00:39)
[2022-06-06] MEDS: SODIUM CHLORIDE 0.9% 1,000 ML IV SCH (04:30)
[2022-06-06 04:43] LABS: Basophils % (A) 0 %; Eosinophils # (A) 0.1 k/uL (0-0.7); Eosinophils % (A) 0 %; HCT 29.1 % (39.0-53.0); Lymphocytes # (A) 1.6 k/uL (1.0-4.8); Lymphocytes % (A) 8 %; MCH 32.5 pg (25.0-35.0); MCHC 33.9 g/dL (31.0-37.0); Mean Platelet Volume 9.1; Monocytes # (A) 0.7 k/uL (0-1.0); Monocytes % (A) 4 %; Neutrophils # (A) 16.2 k/uL (1.3-7.7); Neutrophils % (A) 86 %; Platelet Count 158 k/uL (150-450); RBC 3.03 m/uL (4.30-5.90); RDW 13.3 % (11.5-15.5); WBC 18.7 k/uL (3.8-10.6)
[2022-06-06 05:00] LABS: Potassium 3.7 mmol/L (3.5-5.1)
[2022-06-06 05:06] LABS: HGB 9.9 gm/dL (13.0-17.5)
[2022-06-06 05:44] LABS: ABG Base Excess 9.4 mmol/L; ABG HCO3 33 mmol/L (21-25); ABG Hematocrit 29 % (34.0-46.0); ABG Oxygen Saturation 98.3 % (94-97); ABG PCO2 43 mmHg (35-45); ABG PH 7.49 (7.35-7.45); ABG PO2 93 mmHg (83-108); ABG TCO2 34 mmol/L (19-24); Allen Test Performed? Yes
[2022-06-06 05:45] LABS: Glucose,Whole Blood 248 mg/dL (70-110)
[2022-06-06] MEDS: INSULIN ASPART (NovoLOG) 100 UNIT/ML VIAL SQ SCH ×7 (05:45→23:59)
[2022-06-06] MEDS ORDERED: POTASSIUM BICARBONATE/CIT AC 20 MEQ TABLET.EFF NG-TUBE SCH (06:00)
--- NOTE | 2022-06-06 07:35 | XR ---
EXAMINATION TYPE: XR chest 1V portable DATE OF EXAM: 06/06/2022 5:35 AM COMPARISON: Chest radiographs from 06/05/2022. TECHNIQUE: XR chest 1V portable Frontal view of the chest. CLINICAL INDICATION:Male, 86 years old with history of Tube placement; FINDINGS: Lungs/Pleura: No pneumothorax. Improvement in scattered patchy airspace disease. Small left pleural e ffusion. Pulmonary vascularity: Prominent interstitium. Heart/mediastinum: Cardiomediastinal silhouette is prominent in size. Musculoskeletal: No acute osseo us pathology. Other findings: Surgical clips in the left upper abdomen. Lines/Tubes: Endotracheal tube with distal tip 4.6 cm above the monique Nasogastric tube with its dist al tip and side-port projecting under the diaphragm. Left subclavian approach central venous catheter with tip terminating at the superior cavoatrial junction. IMPRESSION: 1. Small left pleural effusion with improvement in diffuse bilateral infiltrates from prior examinati on. 2. Stable support lines and tubes.
[2022-06-06] MEDS ORDERED: LACTULOSE 20 GM/30 ML CUP PO ONE (08:22)
[2022-06-06] MEDS: CHLORHEXIDINE GLUCONATE 15 ML CUP MUCOUS MEM SCH ×2 (08:32→21:14)
[2022-06-06] MEDS: PIPERACILLIN-TAZOBACTAM 3.375 GM in SODIUM CHLORIDE 0.9% 100 ML IVPB SCH ×3 (08:32→23:22)
[2022-06-06] MEDS: PANTOPRAZOLE 40 MG/10 ML VIAL IVP SCH ×2 (08:32→21:14)
[2022-06-06] MEDS: ENOXAPARIN 40 MG/0.4 ML SYRINGE SQ SCH (08:32)
[2022-06-06] MEDS: ASPIRIN 81 MG PO SCH (08:32)
[2022-06-06] MEDS: levETIRAcetam IV 1,000 MG in SALINE 1 100ML.BAG IVPB SCH ×2 (10:02→21:14)
--- NOTE | 2022-06-06 11:16 | P.PN ---
Subjective Progress Note Date: 06/06/22 The patient is seen at bedside and per nurse is about the same. He is on IV Propofol 10mcg/kg/min. Objective - Vital Signs Vital signs: Vital Signs Temp 97.5 F L 06/06/22 08:00 Pulse 112 H 06/06/22 09:00 Resp 26 H 06/06/22 09:00 BP 98/60 06/04/22 00:00 Pulse Ox 99 06/06/22 09:00 FiO2 40 06/06/22 08:00 Intake & Output 06/05/22 06/06/22 06/06/22 18:59 06:59 18:59 Intake Total 949.762 867.194 125.047 Output Total 1110 650 25 Balance -160.238 217.194 100.047 Weight 59.6 kg Intake: IV 313 166 13 Piperacillin-Tazobactam 3 100 .375 gm In Sodium Chloride 0.9% 100 ml @ 25 mls/hr IVPB Q8HR [facility] Rx# :[id number] Sodium Chloride 0.9% 1, 180 130 10 000 ml @ 10 mls/hr IV . Q24H [facility] Rx#:[id number] pressure bags 33 36 3 Intake, IV Titration 156.762 119.194 30.047 Amount ACETAMINOPHEN IV (For NPO 100 ) 1,000 mg In Empty Bag 1 bag @ 400 mls/hr IVPB Q8H [facility] Rx#:[id number] Heparin Sod,Pork in 0.45% 48.624 NaCl 25,000 unit In 0.45 % NaCl 1 250ml.bag @ 18 UNITS/KG/HR 9.798 mls/hr IV .Q24H [facility] Rx#: [id number] Norepinephrine 4 mg In 70.857 Sodium Chloride 0.9% 250 ml @ 0.05 MCG/KG/MIN 10. 369 mls/hr IV .Q24H [facility] Rx#:[id number] propofoL 1,000 mg In 8.138 48.337 30.047 Empty Bag 1 bag @ 5 MCG/ KG/MIN 1.633 mls/hr IV . Q24H [facility] Rx#:[id number] Tube Feeding 420 492 82 Other 60 90 Output: Urine 1110 650 25 Other: Voiding Method Indwelling Catheter Indwelling Catheter ABP, PAP, CO, CI - Last Documented Arterial Blood Pressure 96/51 - Exam GENERAL: The patient is lying in bed and does not appear in acute distress. LUNG: Intubated on ventilator. NEUROLOGICAL: Limited because of his condition. IV Propofol 10mcg/kg/min and held for about 1 hour and 15 minutes prior to examination. Higher mental function: Patient is comatose. GCS4 (E1, VT1, M2). No responsive or following commands. Cranial nerves: I had to manually open his eyes. Primary gaze is midline. The right pupil is 2mm and sluggishly reactive to light. While the left eye is opacified that is grayish is coloration. Positive corneal over the right and did not appreciate corneal on left. Negative occulocephalic. No facial weakness. Has weak cough and gag reflex. Is breathing over the vent. Motor: The strength is hard to assess. No spontaneous movement.With painful stimuli has extensor posture of the left upper extremity but otherwise no movement noted anywhere else. Decrease tone throughout. Normal bulk. Cerebellum: Unable to assess. Sensation: Unable to assess light touch. Some of the workup in the ED consisted of: Coronavirus patient are not detected CT of the head is reported as degenerative and nonspecific white matter changes most typical of remote ischemia. No acute hemorrhage or mass effect with MRI as clinically warranted. I personally reviewed the CT of the head and I don't feel there is any acute subacute ischemia there is no intracranial hemorrhage, there is no mass effect. Routine EEG on 06/03/2022 is abnormal. The generalized polyspike increases risk for myoclonic seizure. Otherwise the background is suppressed over the bilateral hemisphere and one of the possibilities is due to medication effect (high dose Ativan and on IV propofol) and another possibility is due to anoxia from cardiopulmonary arrest. There is no seizure detected during the study. C ortical correlation is recommended. Repeat routine EEG on 06/04/2022: Is abnormal. The back was slowing suggestive of moderate to severe encephalopathy. There is no focal slowing, epileptiform discharges or seizure on the EEG. Clinical correlation is recommended. Compared to the ED on 06/03/2022 this EEG is a somewhat better Repeat CT of the head on 06/04/2022 is reported as no acute intracranial hemorrhage or midline shift. There is mild diffuse age-related cerebral atrophy and mild nonspecific white matter changes favoring product of chronic small vessel ischemic changes and patient that this age redemonstrated. No significant change from a day earlier. I personally reviewed CT head and agree with report. 2-D echo was reported as moderate to severe left ventricular hypertrophy with septal and posterior wall diastolic thickness 1.6-1.8 cm. Ejection fraction of 25%. Mild to moderate aortic regurgitation. Left atrial size at the upper limits of normal. Keppra level is 30.1 (normal level is 3-60.0) - Labs CBC & Chem 7: 06/06/22 04:23 06/06/22 04:23 Labs: Abnormal Lab Results - Last 24 Hours (Table) 06/05/22 06/05/22 06/05/22 Range/Units 11:26 18:27 22:25 WBC (3.8-10.6) k/uL RBC (4.30-5.90) m/uL Hgb (13.0-17.5) gm/dL Hct (39.0-53.0) % Neutrophils # (1.3-7.7) k/uL APTT (22.0-30.0) sec ABG pH (7.35-7.45) ABG HCO3 (21-25) mmol/L ABG Total CO2 (19-24) mmol/L ABG O2 Saturation (94-97) % ABG Hematocrit (34.0-46.0) % Hemoglobin (13.0-17.5) gm/dL Carbon Dioxide 32 H (22-30) mmol/L BUN 42 H (9-20) mg/dL Glucose 200 H (74-99) mg/dL POC Glucose (mg/dL) 184 H 171 H (70-110) mg/dL Hemoglobin A1c (0.0-6.0) % Calcium 8.0 L (8.4-10.2) mg/dL 06/05/22 06/06/22 06/06/22 Range/Units 23:31 04:23 04:23 WBC (3.8-10.6) k/uL RBC (4.30-5.90) m/uL Hgb (13.0-17.5) gm/dL Hct (39.0-53.0) % Neutrophils # (1.3-7.7) k/uL APTT (22.0-30.0) sec ABG pH (7.35-7.45) ABG HCO3 (21-25) mmol/L ABG Total CO2 (19-24) mmol/L ABG O2 Saturation (94-97) % ABG Hematocrit (34.0-46.0) % Hemoglobin (13.0-17.5) gm/dL Carbon Dioxide 31 H (22-30) mmol/L BUN 52 H (9-20) mg/dL Glucose 225 H (74-99) mg/dL POC Glucose (mg/dL) 197 H (70-110) mg/dL Hemoglobin A1c 6.4 H (0.0-6.0) % Calcium 8.0 L (8.4-10.2) mg/dL 06/06/22 06/06/22 06/06/22 Range/Units 04:23 04:23 05:41 WBC 18.7 H (3.8-10.6) k/uL RBC 3.03 L (4.30-5.90) m/uL Hgb 9.9 L D (13.0-17.5) gm/dL Hct 29.1 L (39.0-53.0) % Neutrophils # 16.2 H (1.3-7.7) k/uL APTT 30.6 H (22.0-30.0) sec ABG pH 7.49 H (7.35-7.45) ABG HCO3 33 H (21-25) mmol/L ABG Total CO2 34 H (19-24) mmol/L ABG O2 Saturation 98.3 H (94-97) % ABG Hematocrit 29 L (34.0-46.0) % Hemoglobin 9.6 L (13.0-17.5) gm/dL Carbon Dioxide (22-30) mmol/L BUN (9-20) mg/dL Glucose (74-99) mg/dL POC Glucose (mg/dL) (70-110) mg/dL Hemoglobin A1c (0.0-6.0) % Calcium (8.4-10.2) mg/dL 06/06/22 Range/Units 05:42 WBC (3.8-10.6) k/uL RBC (4.30-5.90) m/uL Hgb (13.0-17.5) gm/dL Hct (39.0-53.0) % Neutrophils # (1.3-7.7) k/uL APTT (22.0-30.0) sec ABG pH (7.35-7.45) ABG HCO3 (21-25) mmol/L ABG Total CO2 (19-24) mmol/L ABG O2 Saturation (94-97) % ABG Hematocrit (34.0-46.0) % Hemoglobin (13.0-17.5) gm/dL Carbon Dioxide (22-30) mmol/L BUN (9-20) mg/dL Glucose (74-99) mg/dL POC Glucose (mg/dL) 248 H (70-110) mg/dL Hemoglobin A1c (0.0-6.0) % Calcium (8.4-10.2) mg/dL Microbiology - Last 24 Hours (Table) 06/03/22 17:45 Blood Culture - Preliminary Blood No Growth after 48 hours 06/03/22 12:25 Blood Culture - Preliminary Blood No Growth after 48 hours 06/03/22 12:10 Blood Culture - Preliminary Blood No Growth after 48 hours Assessment and Plan Assessment: Acute Cardiopulmonary arrest. Initial rhythm reported is PEA. He was down for 15 minutes prior to EMS arrival per (without CPR) until found down by EMS around 8:48AM and ROSC achieved at 9:09 Likely Anoxic brain injury (cannot determine extent of brain injury at this time) due to cardiopulmonary arrest. Small component due to sedation IV propofol. Myoclonic seizure due to cardiopulmonary arrest--resolved Acute hypoxic respiratory failure intubated and on mechanical ventilatory Cardiomyopathy with global hypokinesis. Moderate and aortic regurgitation Elevated troponin Plan: Continue Keppra 1gm IV every 12 hours. Cardiology team is on board. Rule out any underlying infection since had two low grade fever with silvestre kocytosis. So far his blood culture negative. Sputum culture is pending. Patient is on Zosyn per ICU team. We'll defer the rest of the medical management to the primary and ICU team The patient condition is very critical and prognosis is poor. The plan is discussed with the primary team (N.P.) and patient's nurse. Once arrives, will have a discussion with her. UPDATE: I had a lengthy discussion with the patient's (who is at bedside) and including this meeting was Brittney Pereira (N.P. from primary team) and his nurse. We used an technical services analyst during the meeting. His was notified that patient has not made any drastic meaningful neurological recovery but is not brain and highly unlikely he will make any drastic recovery. She stated that patient has had no CPR from the time he was down till EMS arrived. She wants to make the patient DO NOT RESUSCITATE but continue current medical management. She will give me another 48 hours and if no further recovery will likely make him comfort care. Dr. Diaz will start neurology service tomorrow A.MFarhan Monet M.D. Neuro-hospitalist Time with Patient: Greater than 30
[2022-06-06 11:31] VITALS: BMI 22.5
--- NOTE | 2022-06-06 11:38 | P.PN ---
Subjective Progress Note Date: 06/06/22 86-year-old male patient, healthy with a previous history of COVID 19 infections occurred in 2020 from which the patient recovers. The patient's collapsed at home and the patient was found to be completely unresponsive by the . The patient is of origin and there is a communication barrier be tween us and the family. Based on the EMS sheets, the patient was completely unresponsive. The patient was intubated on the scene. He was given epinephrine 2, CPR and he was in PEA . The EMS arrived to the scene on 8:48 AM. Initial blood pressure recording was done on 9:14 AM where the blood pressure was reported to be 56/27 with a pulse of 50. The cardiac rhythm was sinus bradycardia. The patient got transferred to our emergency department following that. According to the records, the return of spontaneous circulation was on 90 9 AM. When the patient another arrived to the emergency department, he had a good pulse without being paced and the blood pressure was within normal limits. His initial blood pressure was 112/96 and his pulse ox was 98%. The patient was given EKG that showed a right bundle branch block pattern, a wide-complex rhythm, probably with underlying first-degree AV block. Cardiology was involved and the Leather Whitener was not activated. CAT scan of the brain showed acute abnormalities. CAT scan of the chest showed no evidence of any pulmonary embolism there was diffuse bilateral pulmonary infiltrates in the mid and lower lung [place] bilaterally consistent with pneumonia over CHF. The patient was given a dose of Rocephin and vancomycin. The patient got moved to the intensive care unit. At this point in time, the patient is completely unresponsive. He is having some occasional myoclonic jerks. His temperature is currently at 98. He is on propofol which is running at 10 mcg/kg per minute. He is not following any verbal commands or painful stimulation. Whenever stimulated, he goes into episodic myoclonic jerks. The patient on a mechanical ventilator on assist control mode at a rate of 14 with a tidal volume of 400 and FiO2 of 80% with asp irin. The blood. His were noted. Initial blood gas that was obtainedIn the hospital showed a pH of 7.11 with a pCO2 of 51 and pO2 of 59 and this was on FiO2 of 100%. Subsequently, there was some difficulty in accepting the patient emergency. He was placed on a PEEP of 10 and repeat blood gases showed a pH of 7.4 with a pCO2 of 21 and pO2 of 55. Most recent blood gases after arrival to the ICU shows a pH of 7.34 with a pCO2 of 36 and pO2 of 329. Initial lactic acid level is at 6.0. Cognitive testing was negative. Electrolytes show a component of an underlying metabolic acidosis with a gap of 16 and a bicarb level of 15. Glucose is 261. Sodium is at 141. Electrocardiogram 13.2 and elevated count of 151. Coagulation profile within normal limits. D-dimer was at 19.2. Initial troponin was 0.278. CAT scan of the brain showed chronic atrophy, without any acute abnormalities. No evidence of any hemorrhage and the findings were essentially nonspecific with white matter changes typical of remote ischemia. 06/04/2022, I'm seeing the patient for a follow-up. The patient remains intubated on a mechanical ventilator. Neurologically, the patient is not having any myoclonic jerks. The patient was given a total of 12 mg of Ativan yesterday in addition to propofol and Keppra. Since then, the patient underwent an EEG and there was no evidence of any seizure activity. Neurology on the case and the repeat EEG and a CAT scan of the brain will be done today. Meanwhile, the susana cuevas remains intubated on mechanical ventilator. The patient is on propofol running at 20 mg/kg per minute. The patient on normal saline at the rate of 75 mL an hour and the patient remains on norepinephrine at 0.08 mcg/kg per minute. The patient's lactic acid level is down to 1.6. Troponin was initially negative later on came up to 15 and to 20 consistent with acute non-ST segment elevation myocardial infarction. Echo was done and the patient has an ejection fraction of 25%. Remains on a mechanical ventilator on assist control mode at the rate of 14 with a tidal volume of 400 and FiO2 of 50% with a PEEP of 5. The pH is 7.38 with a pCO2 of 37 and pO2 167. The echoes a 24 with hemoglobin 13.4 and a platelet count of 153. Sodium is at 130s with a potassium level of 01/05/2009 bicarb of 21 BUN is 27 and creatinine is 0.9. The chest x-ray showing diffuse bilateral pulmonary infiltrates consistent with acute pulmonary edema. The patient is afebrile. The patient is producing adequate amount of urine output at this point in time. The patient also is on IV heparin for now. The patient is also on IV Zosyn as an empiric antibiotic coverage. 06/05/2023, the patient remains unresponsive. The patient was given a sedation holiday this morning and she was taken off propofol and within 30 minutes, the patient became tachypneic and tachycardic and he started biting and she will cough and and he had to be placed back on sedation and the patient is currently on low-dose propofol at 10 mcg/kg per minute. Note that the CAT scan of the brain was repeated twice and showed cerebral atrophy and the EEG was showing slowing and this was generalized slowing and there was no evidence of any focal seizures. The patient remains intubated on a mechanical ventilator. Hemodyn amically stable on no pressors. His fluid balance is -1.1 L of the patient was given diuretics and the chest x-ray showing improvement in the pulmonary edema. The patient was started on enteral feeding for nutritional support and the patient's current vital high protein at the rate of 41 mL an hour. The patient remains on a mechanical ventilator on assist control mode of mechanical ventilation with a rate of 14 with a tidal volume of 400 and FiO2 of 40% with a PEEP of 8. Blood gases from today shows a pH of 7.34 with pCO2 59 and pO2 of 100. The white cell count at 17.3 with a hemoglobin of 12.5 and a platelet count of 123. Sodium is at 140 with a potassium level of 3.6 and the BUN of 30 with a creatinine of 0.9. No fever. No seizure activity has been noted. The patient remains on IV Zosyn as an empiric antibiotic coverage. The patient is also on IV heparin. IV fluids and currently at [facility]. 06/06/2022, the patient is being seen for a follow-up. Clinically unchanged. The low-dose propofol 10 mcg/kg per minute. Taken off sedation. Only grimaces to deep painful stimulation. Does not follow any commands. No seizure activity has been noted. The patient spiked a fever of 101.3 yesterday. Given IV Tylenol and cooling blankets the patient is currently afebrile. The patient remains on a mechanical ventilator. He is an assist-control mode at the rate of 14 with a tidal volume of 400 and FiO2 of 40% with a PEEP of 5. Blood gas shows a pH of 7.43 with a pCO2 of 43 and pO2 of 93. Chest x-ray shows improvement in the pulmonary edema. The patient is currently off norepinephrine. IV fluids and currently at KVO. Fluid balance -1.1 L over the past 24 hours. The patient is receiving enteral feeding for nutritional support and the patient is on vital high protein at the rate of 40 mL an hour. The white cell count of 18.7 hemoglobin 9.9, sodium is 139, BUN is at 52 and the creatinine is at 1.2 with a serum bicarb of 31. Potassium level is 3.7. No other significant events otherwise for now. Neurologist on the case. Remains on IV Zosyn. Afebrile for now. Objective - Vital Signs Vital signs: Vital Signs Temp 97.5 F L 06/06/22 08:00 Pulse 112 H 06/06/22 09:00 Resp 26 H 06/06/22 09:00 BP 98/60 06/04/22 00:00 Pulse Ox 99 06/06/22 09:00 FiO2 40 06/06/22 11:09 Intake & Output 06/05/22 06/06/22 06/06/22 18:59 06:59 18:59 Intake Total 949.762 867.194 125.047 Output Total 1110 650 25 Balance -160.238 217.194 100.047 Weight 59.6 kg Intake: IV 313 166 13 Piperacillin-Tazobactam 3 100 .375 gm In Sodium Chloride 0.9% 100 ml @ 25 mls/hr IVPB Q8HR [facility] Rx# :[id number] Sodium Chloride 0.9% 1, 180 130 10 000 ml @ 10 mls/hr IV . Q24H [facility] Rx#:[id number] pressure bags 33 36 3 Intake, IV Titration 156.762 119.194 30.047 Amount ACETAMINOPHEN IV (For NPO 100 ) 1,000 mg In Empty Bag 1 bag @ 400 mls/hr IVPB Q8H [facility] Rx#:[id number] Heparin Sod,Pork in 0.45% 48.624 NaCl 25,000 unit In 0.45 % NaCl 1 250ml.bag @ 18 UNITS/KG/HR 9.798 mls/hr IV .Q24H [facility] Rx#: [id number] Norepinephrine 4 mg In 70.857 Sodium Chloride 0.9% 250 ml @ 0.05 MCG/KG/MIN 10. 369 mls/hr IV .Q24H [facility] Rx#:[id number] propofoL 1,000 mg In 8.138 48.337 30.047 Empty Bag 1 bag @ 5 MCG/ KG/MIN 1.633 mls/hr IV . Q24H [facility] Rx#:[id number] Tube Feeding 420 492 82 Other 60 90 Output: Urine 1110 650 25 Other: Voiding Method Indwelling Catheter Indwelling Catheter ABP, PAP, CO, CI - Last Documented Arterial Blood Pressure 96/51 - Exam Intubated on a mechanical ventilator. The patient is showing no seizure activit y.. Orogastric and orotracheal tube are both in place. The patient is sedated with low-dose propofol Head exam was generally normal. There was no scleral icterus or corneal arcus. Mucous membranes were moist. Neck was supple and without jugular venous distension, thyromegaly, or carotid bruits. Carotids were easily palpable bilaterally. There was no adenopathy. Lungs are diminished and the patient has some limited bibasilar crackles Cardiac exam revealed the PMI to be normally situated and sized. The rhythm was regular and no extrasystoles were noted during several minutes of auscultation. The first and second heart sounds were normal and physiologic splitting of the second heart sound was noted. There were no murmurs, rubs, clicks, or gallops. Abdominal exam revealed normal bowel sounds. The abdomen was soft, non-tender, and without masses, organomegaly, or appreciable enlargement of the abdominal aorta. Examination of the extremities revealed easily palpable radial, femoral and ped al pulses. There was no cyanosis, clubbing or edema. Examination of the skin revealed no evidence of significant rashes, suspicious appearing nevi or other concerning lesions. Neurologically the patient is completely unresponsive. The patient's left eye is completely opacified because of a previous cataract or coma. Right eye is around 3 mm in size, sluggishly reactive to light. No nystagmus. No preferential gaze. He has a positive cough and gag. He has occasional myoclonic jerks. Reflexes are diminished over extremities and motor and sensory function cannot be obtained. No facial asymmetry. Sensory functions cannot be obtained. Gait cannot be assessed. - Labs CBC & Chem 7: 06/06/22 04:23 06/06/22 04:23 Labs: Abnormal Lab Results - Last 24 Hours (Table) 06/05/22 06/05/22 06/05/22 Range/Units 18:27 22:25 23:31 WBC (3.8-10.6) k/uL RBC (4.30-5.90) m/uL Hgb (13.0-17.5) gm/dL Hct (39.0-53.0) % Neutrophils # (1.3-7.7) k/uL APTT (22.0-30.0) sec ABG pH (7.35-7.45) ABG HCO3 (21-25) mmol/L ABG Total CO2 (19-24) mmol/L ABG O2 Saturation (94-97) % ABG Hematocrit (34.0-46.0) % Hemoglobin (13.0-17.5) gm/dL Carbon Dioxide 32 H (22-30) mmol/L BUN 42 H (9-20) mg/dL Glucose 200 H (74-99) mg/dL POC Glucose (mg/dL) 171 H 197 H (70-110) mg/dL Hemoglobin A1c (0.0-6.0) % Calcium 8.0 L (8.4-10.2) mg/dL 06/06/22 06/06/22 06/06/22 Range/Units 04:23 04:23 04:23 WBC 18.7 H (3.8-10.6) k/uL RBC 3.03 L (4.30-5.90) m/uL Hgb 9.9 L D (13.0-17.5) gm/dL Hct 29.1 L (39.0-53.0) % Neutrophils # 16.2 H (1.3-7.7) k/uL APTT (22.0-30.0) sec ABG pH (7.35-7.45) ABG HCO3 (21-25) mmol/L ABG Total CO2 (19-24) mmol/L ABG O2 Saturation (94-97) % ABG Hematocrit (34.0-46.0) % Hemoglobin (13.0-17.5) gm/dL Carbon Dioxide 31 H (22-30) mmol/L BUN 52 H (9-20) mg/dL Glucose 225 H (74-99) mg/dL POC Glucose (mg/dL) (70-110) mg/dL Hemoglobin A1c 6.4 H (0.0-6.0) % Calcium 8.0 L (8.4-10.2) mg/dL 06/06/22 06/06/22 06/06/22 Range/Units 04:23 05:41 05:42 WBC (3.8-10.6) k/uL RBC (4.30-5.90) m/uL Hgb (13.0-17.5) gm/dL Hct (39.0-53.0) % Neutrophils # (1.3-7.7) k/uL APTT 30.6 H (22.0-30.0) sec ABG pH 7.49 H (7.35-7.45) ABG HCO3 33 H (21-25) mmol/L ABG Total CO2 34 H (19-24) mmol/L ABG O2 Saturation 98.3 H (94-97) % ABG Hematocrit 29 L (34.0-46.0) % Hemoglobin 9.6 L (13.0-17.5) gm/dL Carbon Dioxide (22-30) mmol/L BUN (9-20) mg/dL Glucose (74-99) mg/dL POC Glucose (mg/dL) 248 H (70-110) mg/dL Hemoglobin A1c (0.0-6.0) % Calcium (8.4-10.2) mg/dL Microbiology - Last 24 Hours (Table) 06/04/22 00:45 Gram Stain - Final Sputum Sputum Culture - Final 06/03/22 17:45 Blood Culture - Preliminary Blood No Growth after 48 hours 06/03/22 12:25 Blood Culture - Preliminary Blood No Growth after 48 hours 06/03/22 12:10 Blood Culture - Preliminary Blood No Growth after 48 hours Assessment and Plan Plan: 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 The patient was taken off sedation and his neuro status being monitored for now. Acute fever, recovered Acute cardiac arrest most likely secondary to an acute non-ST segment elevation myocardial infarction. The patient's severe cardiomyopathy with ejection fraction of 25%. Troponin peaked at 20. The patient is currently on IV heparin. The patient on norepinephrine for blood pressure support. Note that the patient was in a PEA rhythm at a time of initial evaluation. EMS arrived to the scene at 8:48 AM and there are reports of return of spontaneous circulation at 9:09 AM. The blood pressure however was quite low and subsequent blood pressures were quite low. The patient arrived to the ED with a normal sinus rhythm with a first-degree AV block and a RBBB pattern. The patient remains hemodynamically stable and no cardiac arrhythmias of been noted since admission. the patient is currently off pressors Acute hypoxic respiratory failure currently intubated on a mechanical ventilator Acute pulmonary edema secondary to above, improving as the patient was diuresed with IV Lasix and the patient is in a negative fluid balance, the chest x-ray has improved significantly and the patient is currently off diuretics Severe cardiomyopathy, likely ischemic with an ejection fraction of 25% Anoxic encephalopathy, clinically suspected due to cardiac arrest, currently seizure free, and the patient remains on propofol, while off for the patient remains unresponsive Episodic myoclonic jerks probably a representation of anoxic encephalopathy, currently seizure free and repeat EEG showed no acute abnormalities to indicate seizure activity. lactic acidosis with initial lactic acid level of 6 , due to cardiac arrest, recovered and normalized Acute leukocytosis, likely reactive, Hyperglycemic, likely reactive, currently on sliding scale insulin coverage Enteral feeding for nutritional support Plan Continue ventilator support. no changes for today keep the patient off pressors Keep the patient off sedation Monitor neuro status most recent EEG was noted and there is no evidence of any active seizure activity CAT scan of the brain is negative 2 The patient is currently off pressors Change IV fluids to KVO Discontinue Lasix continue Zosyn for now Monitor fever pattern Enteral feeding for nutritional support and the patient is on vital high protein Start the patient on metoprolol 25 mg twice a day Aspirin 81 mg by mouth daily Lovenox 40 mg subcu for DVT prophylaxis IV Protonix Condition is critical we will continue to follow Prognosis is poor We'll get an orthopedic coder and we will update the regarding his condition. This is a critically care evaluation was done more than 30 minutes. Long-term prognosis poor baseline above-mentioned comorbidities. Time with Patient: Greater than 30
--- NOTE | 2022-06-06 13:09 | P.PN ---
Subjective Progress Note Date: 06/06/22 This is an 86 year old male who is brought into the hospital after being found unresponsive. He is currently intubated and being monitored in intensive care unit. Patient is on mechanical ventilator with FiO2 of 40%, afebrile, blood pressure 119/48. Patient is being followed up pulmonary child care group leader, cardiology and neurology. Patient underwent EEG yesterday showing a generalized polyspike that increases risk for myoclonic seizure, additional findings in report suggest medication effect versus anoxia. Patient did have propofol paused this morning per nursing he experienced tachycardia during that time and propofol was restarted. Patient is not currently displaying myoclonus per reports he as having myoclonic jerks yesterday. Echocardiogram showing an EF of 25% with global hypokinesis also has troponin elevation. Patient had repeat chest xray today showing diffuse bilateral infiltrates greater on the left correlate for pulmonary edema versus pneumonia. Sputum and blood culture is currently pending. He is continued on IV zosyn. He received a dose of IV lasix today. Patient also continues on IV keppra. Patient is also on heparin infusion. Plan to start patient on enteral feedings today. Repeat EEG and brain CT pending. Labs today showing a white count of 21.4, neutrophils 19.4, BUN 27, creatinine 0.95, sodium 138, potassium 4.0, chloride 109, CO2 21, magnesium 1.8, AST 178, ALT 59, alk ph os 60. His procalcitonin yesterday is 4.05. Lactic acid has improved to 1.9. 06/05/2022 Patient evaluated in the ICU continues on mechanical ventilator with FIO2 of 40% currently with oxygen saturation of 99%. He had sedation holiday today and was minimally responsive. He did get agitated and also tachycardic while off the propofol. He had repeat EEG yesterday still with significant encephalopathy moderate to severe, which neurology felt was slightly improved from EEG. No epileptiform acitivty noted. He had brain CT reported yesterday which was negative for acute subacute ischemia. Neurology is following, he is continued on IV keppra. He continues on zosyn, has had low grade fever t max 100 overnight. He had repeat chest xray today showing diffuse bilateral infiltrates with left greater than right with small left pleural effusion. Correlate for pulmonary edema versus pneumonia. Blood culture and sputum culture are currently pending. He had IV lasix 40 mg x 1 yesterday. Patient has been started on enteral tube feedings, and tolerating well. No BM, his bowels are more active than yesterday. He has indwelling catheter in place. White count today is improved slightly 17.3, hgb 12.5, sodium 130, potassium 3.6, BUN 30, creatinine 0.90, glucose 150s, calcium 7.9. 06/06/2022 Patient continue to be monitored in ICU on mechanical ventilator with FiO2 of 40%. He had fever yesterday afternoon 101.3, 100.1. He continues on IV zosyn for empiric antibiotic coverage. So far blood cultures and sputum culture are negative, pending finalized cultures. He is receiving IV tylenol for fever. White count today is 18.7, his hemoglobin is now 9.9 with a 2.6 gram drop since yesterday, platelet count is stable at 158. Blood gases today showing a pH of 7.49, pO2 normalized at 93, HCO3 33, total CO2 34. Sodium today 139, potassium 3.7, BUN 52, creatinine 1.20, blood glucose 248, calcium 8.0. He has been started on enteral tube feedings with Vital AF 1.2 at 41 mls per hour, he is at goal and tolerating. No BM in 3 days will give a dose of lactulose today. Continues on IV keppra, patient was started on levophed, and continues on IV propofol for sedation. IV lasix has been discontinued. Chest xray today showing small left pleural effusion with improvement in diffuse bilateral infiltrates. Prognosis remains poor and there is plan for discussion with family regarding code status. Unable to complete full review of systems as patient is currently intubated in ICU. PHYSICAL EXAMINATION: GENERAL: The patient is currently intubated. Well developed, well nourished. HEENT: Pupils are round and equally reacting to light. EOMI. No scleral icterus. No conjunctival pallor. Normocephalic, atraumatic. No pharyngeal erythema. No thyromegaly. No spontaneous eye opening. CARDIOVASCULAR: S1 and S2 present. No murmurs, rubs, or gallops. PULMONARY: Scattered rhonchi ABDOMEN: Soft, nontender, nondistended, hypoactive bowel sounds. No palpable organomegaly. Indwelling catheter in place. MUSCULOSKELETAL: No joint swelling or deformity. EXTREMITIES: No cyanosis, clubbing, or pedal edema. NEUROLOGICAL: Unable to complete focal neurological exam patient is intubated and sedated in ICU. SKIN: No rashes. Assessment and plan Assessment Acute cardiac arrest possibly from acute Non ST elevation MO Possible anoxic encephalopathy Acute hypoxic respiratory failure on mechanical ventilation Myoclonus jerks, on IV Keppra empirically Leukocytosis Lactic acidosis, improved Non-anion gap metabolic acidosis secondary to lactic acidosis, improved Elevated liver enzymes possible from hepatic congestion GI Prophylaxis, IV protonix DVT Prophylaxis Lovenox Full Code Plan Continue monitoring patient in intensive care unit, on mechanical ventilator Neurology consultation Cardiology recommending cardiac catheterization when respiratory status improves Insulin has been adjusted Lasix discontinued Continues on empiric antibiotic coverage Patient is continued on propofol Prognosis remains guarded at this time The impression and plan of care has been dictated by Brittney Pereira, Nurse Practitioner as directed. Dr. Kassi MD I have performed a history and physical examination and medical decision making of this patient, discussed the same with the dictator, and agree with the dictators assessment and plan as written, documented as a scribe. Based on total visit time, I have performed more than 50% of this visit. Objective - Vital Signs Vital signs: Vital Signs Temp 97.5 F L 06/06/22 04:00 Pulse 108 H 06/06/22 07:00 Resp 24 06/06/22 07:00 BP 98/60 06/04/22 00:00 Pulse Ox 99 06/06/22 07:00 FiO2 40 06/06/22 07:10 Intake & Output 06/05/22 06/06/22 06/06/22 18:59 06:59 18:59 Intake Total 949.762 867.194 54 Output Total 1110 650 25 Balance -160.238 217.194 29 Intake: IV 313 166 13 Piperacillin-Tazobactam 3 100 .375 gm In Sodium Chloride 0.9% 100 ml @ 25 mls/hr IVPB Q8HR [facility] Rx# :[id number] Sodium Chloride 0.9% 1, 180 130 10 000 ml @ 10 mls/hr IV . Q24H [facility] Rx#:[id number] pressure bags 33 36 3 Intake, IV Titration 156.762 119.194 Amount ACETAMINOPHEN IV (For NPO 100 ) 1,000 mg In Empty Bag 1 bag @ 400 mls/hr IVPB Q8H [facility] Rx#:[id number] Heparin Sod,Pork in 0.45% 48.624 NaCl 25,000 unit In 0.45 % NaCl 1 250ml.bag @ 18 UNITS/KG/HR 9.798 mls/hr IV .Q24H [facility] Rx#: [id number] Norepinephrine 4 mg In 70.857 Sodium Chloride 0.9% 250 ml @ 0.05 MCG/KG/MIN 10. 369 mls/hr IV .Q24H [facility] Rx#:[id number] propofoL 1,000 mg In 8.138 48.337 Empty Bag 1 bag @ 5 MCG/ KG/MIN 1.633 mls/hr IV . Q24H [facility] Rx#:[id number] Tube Feeding 420 492 41 Other 60 90 Output: Urine 1110 650 25 Other: Voiding Method Indwelling Catheter Indwelling Catheter ABP, PAP, CO, CI - Last Documented Arterial Blood Pressure 103/52 - Labs CBC & Chem 7: 06/06/22 04:23 06/06/22 04:23 Labs: Abnormal Lab Results - Last 24 Hours (Table) 06/05/22 06/05/22 06/05/22 Range/Units 11:26 18:27 22:25 WBC (3.8-10.6) k/uL RBC (4.30-5.90) m/uL Hgb (13.0-17.5) gm/dL Hct (39.0-53.0) % Neutrophils # (1.3-7.7) k/uL APTT (22.0-30.0) sec ABG pH (7.35-7.45) ABG HCO3 (21-25) mmol/L ABG Total CO2 (19-24) mmol/L ABG O2 Saturation (94-97) % ABG Hematocrit (34.0-46.0) % Hemoglobin (13.0-17.5) gm/dL Carbon Dioxide 32 H (22-30) mmol/L BUN 42 H (9-20) mg/dL Glucose 200 H (74-99) mg/dL POC Glucose (mg/dL) 184 H 171 H (70-110) mg/dL Calcium 8.0 L (8.4-10.2) mg/dL 06/05/22 06/06/22 06/06/22 Range/Units 23:31 04:23 04:23 WBC 18.7 H (3.8-10.6) k/uL RBC 3.03 L (4.30-5.90) m/uL Hgb 9.9 L D (13.0-17.5) gm/dL Hct 29.1 L (39.0-53.0) % Neutrophils # 16.2 H (1.3-7.7) k/uL APTT (22.0-30.0) sec ABG pH (7.35-7.45) ABG HCO3 (21-25) mmol/L ABG Total CO2 (19-24) mmol/L ABG O2 Saturation (94-97) % ABG Hematocrit (34.0-46.0) % Hemoglobin (13.0-17.5) gm/dL Carbon Dioxide 31 H (22-30) mmol/L BUN 52 H (9-20) mg/dL Glucose 225 H (74-99) mg/dL POC Glucose (mg/dL) 197 H (70-110) mg/dL Calcium 8.0 L (8.4-10.2) mg/dL 06/06/22 06/06/22 06/06/22 Range/Units 04:23 05:41 05:42 WBC (3.8-10.6) k/uL RBC (4.30-5.90) m/uL Hgb (13.0-17.5) gm/dL Hct (39.0-53.0) % Neutrophils # (1.3-7.7) k/uL APTT 30.6 H (22.0-30.0) sec ABG pH 7.49 H (7.35-7.45) ABG HCO3 33 H (21-25) mmol/L ABG Total CO2 34 H (19-24) mmol/L ABG O2 Saturation 98.3 H (94-97) % ABG Hematocrit 29 L (34.0-46.0) % Hemoglobin 9.6 L (13.0-17.5) gm/dL Carbon Dioxide (22-30) mmol/L BUN (9-20) mg/dL Glucose (74-99) mg/dL POC Glucose (mg/dL) 248 H (70-110) mg/dL Calcium (8.4-10.2) mg/dL Microbiology - Last 24 Hours (Table) 06/03/22 17:45 Blood Culture - Preliminary Blood No Growth after 48 hours 06/03/22 12:25 Blood Culture - Preliminary Blood No Growth after 48 hours 06/03/22 12:10 Blood Culture - Preliminary Blood No Growth after 48 hours Assessment and Plan Time with Patient: Less than 30
[2022-06-06 13:12] LABS: Glucose,Whole Blood 216 mg/dL (70-110)
[2022-06-06] MEDS: METOPROLOL TARTRATE 25 MG TAB PO SCH ×2 (13:21→21:14)
[2022-06-06 18:21] LABS: Glucose,Whole Blood 242 mg/dL (70-110)
[2022-06-06 21:00] LABS: Glucose,Whole Blood 247 mg/dL (70-110)
[2022-06-06] MEDS ORDERED: INSULIN DETEMIR (LEVEMIR) 100 UNIT/ML SYR SQ SCH (21:00)
[2022-06-06 23:29] LABS: Glucose,Whole Blood 213 mg/dL (70-110)
[2022-06-07 04:32] LABS: Appearance,Urine Clear (Clear); Bacteria,Urine Rare /hpf; Bilirubin,Urine Negative (Negative); Blood,Urine Negative (Negative); Color,Urine Yellow; Glucose,Urine (UA) Negative (Negative); Ketones,Urine Negative (Negative); Leukocyte Esterase,Urine Moderate (Negative); Mucus,Urine Rare /hpf; Nitrite,Urine Negative (Negative); PH, Urine 5.5 (5.0-8.0); Protein,Urine Trace (Negative); RBC,Urine 4 /hpf (0-5); Specific Gravity,Urine 1.031 (1.001-1.035); Urobilinogen,Urine <2.0 mg/dL (<2.0); WBC,Urine 7 /hpf (0-5)
[2022-06-07 05:15] LABS: Glucose,Whole Blood 212 mg/dL (70-110)
[2022-06-07] MEDS: INSULIN ASPART (NovoLOG) 100 UNIT/ML VIAL SQ SCH ×6 (05:17→18:00)
[2022-06-07 05:23] LABS: Basophils % (A) 0 %; Eosinophils % (A) 0 %; HCT 23.2 % (39.0-53.0); Lymphocytes # (A) 1.2 k/uL (1.0-4.8); Lymphocytes % (A) 6 %; MCH 31.6 pg (25.0-35.0); MCHC 32.8 g/dL (31.0-37.0); MCV 96.4 fL (80.0-100.0); Monocytes # (A) 0.9 k/uL (0-1.0); Monocytes % (A) 5 %; Neutrophils # (A) 16.3 k/uL (1.3-7.7); Neutrophils % (A) 87 %; Platelet Count 188 k/uL (150-450); RDW 13.9 % (11.5-15.5); WBC 18.8 k/uL (3.8-10.6)
[2022-06-07 05:25] LABS: Calcium 8.3 mg/dL (8.4-10.2); Potassium 3.3 mmol/L (3.5-5.1)
[2022-06-07 05:33] LABS: HGB 7.6 gm/dL (13.0-17.5)
[2022-06-07] MEDS ORDERED: Potassium Replacement Protocol 1 EACH MISC MISCELLANE PRN (06:09)
[2022-06-07] MEDS: POTASSIUM BICARBONATE/CIT AC 20 MEQ TABLET.EFF NG-TUBE SCH ×4 (06:24→17:52)
--- NOTE | 2022-06-07 07:05 | XR ---
EXAMINATION TYPE: XR chest 1V portable DATE OF EXAM: 06/07/2022 6:00 AM COMPARISON: Chest radiographs from 06/06/2022 TECHNIQUE: XR chest 1V portable Frontal view of the chest. CLINICAL INDICATION:Male, 86 years old with history of Tube placement; FINDINGS: Lungs/Pleura: No sizable pneumothorax. Small left pleural effusion. Improvement in scattered patchy a irspace disease. Pulmonary vascularity: Prominent interstitium. Heart/mediastinum: Cardiomediastinal silhouette is prominent in size. Atherosclerotic calcification o f the aorta. Musculoskeletal: No acute osseous pathology. Other findings: Surgical clips in the left upper abdomen. Lines/Tubes: Endotracheal tube with distal tip 4.5 cm above the monique Nasogastric tube with its dist al tip and side-port projecting under the diaphragm. Left subclavian approach central venous catheter with tip terminating at the superior cavoatrial junction. IMPRESSION: 1. Small left pleural effusion with improvement in diffuse bilateral infiltrates from prior examinati on. 2. Stable support lines and tubes.
[2022-06-07] MEDS: PIPERACILLIN-TAZOBACTAM 3.375 GM in SODIUM CHLORIDE 0.9% 100 ML IVPB SCH (08:45)
[2022-06-07] MEDS: PANTOPRAZOLE 40 MG/10 ML VIAL IVP SCH ×2 (08:55→22:22)
[2022-06-07] MEDS: ASPIRIN 81 MG PO SCH (08:55)
[2022-06-07] MEDS: CHLORHEXIDINE GLUCONATE 15 ML CUP MUCOUS MEM SCH ×2 (08:55→22:22)
[2022-06-07] MEDS: ENOXAPARIN 40 MG/0.4 ML SYRINGE SQ SCH (08:55)
[2022-06-07] MEDS: METOPROLOL TARTRATE 25 MG TAB PO SCH ×2 (08:55→22:28)
[2022-06-07] MEDS: SODIUM CHLORIDE 0.9% 1,000 ML IV SCH ×2 (08:56→09:30)
[2022-06-07] MEDS ORDERED: SODIUM CHLORIDE 0.9% 1,000 ML IV ONE (09:08)
[2022-06-07 09:39] LABS: ABG Base Excess 8.5 mmol/L; ABG HCO3 32 mmol/L (21-25); ABG Oxygen Saturation 98.9 % (94-97); ABG PCO2 40 mmHg (35-45); ABG PO2 104 mmHg (83-108); ABG TCO2 33 mmol/L (19-24)
[2022-06-07 09:40] LABS: ABG Hematocrit 21 % (34.0-46.0)
[2022-06-07] MEDS: levETIRAcetam IV 1,000 MG in SALINE 1 100ML.BAG IVPB SCH (10:15)
[2022-06-07] MEDS ORDERED: levETIRAcetam IV 1,000 MG in SALINE 1 100ML.BAG IVPB STA (11:16)
[2022-06-07 11:55] LABS: Glucose,Whole Blood 194 mg/dL (70-110)
--- NOTE | 2022-06-07 12:52 | P.PN ---
Subjective Progress Note Date: 06/07/22 86-year-old male patient, healthy with a previous history of COVID 19 infections occurred in 2020 from which the patient recovers. The patient's collapsed at home and the patient was found to be completely unresponsive by the . The patient is of origin and there is a communication barrier be tween us and the family. Based on the EMS sheets, the patient was completely unresponsive. The patient was intubated on the scene. He was given epinephrine 2, CPR and he was in PEA . The EMS arrived to the scene on 8:48 AM. Initial blood pressure recording was done on 9:14 AM where the blood pressure was reported to be 56/27 with a pulse of 50. The cardiac rhythm was sinus bradycardia. The patient got transferred to our emergency department following that. According to the records, the return of spontaneous circulation was on 90 9 AM. When the patient another arrived to the emergency department, he had a good pulse without being paced and the blood pressure was within normal limits. His initial blood pressure was 112/96 and his pulse ox was 98%. The patient was given EKG that showed a right bundle branch block pattern, a wide-complex rhythm, probably with underlying first-degree AV block. Cardiology was involved and the F[employer] W[employer] Tender was not activated. CAT scan of the brain showed acute abnormalities. CAT scan of the chest showed no evidence of any pulmonary embolism there was diffuse bilateral pulmonary infiltrates in the mid and lower lung [place] bilaterally consistent with pneumonia over CHF. The patient was given a dose of Rocephin and vancomycin. The patient got moved to the intensive care unit. At this point in time, the patient is completely unresponsive. He is having some occasional myoclonic jerks. His temperature is currently at 98. He is on propofol which is running at 10 mcg/kg per minute. He is not following any verbal commands or painful stimulation. Whenever stimulated, he goes into episodic myoclonic jerks. The patient on a mechanical ventilator on assist control mode at a rate of 14 with a tidal volume of 400 and FiO2 of 80% with asp irin. The blood. His were noted. Initial blood gas that was obtainedIn the hospital showed a pH of 7.11 with a pCO2 of 51 and pO2 of 59 and this was on FiO2 of 100%. Subsequently, there was some difficulty in accepting the patient emergency. He was placed on a PEEP of 10 and repeat blood gases showed a pH of 7.4 with a pCO2 of 21 and pO2 of 55. Most recent blood gases after arrival to the ICU shows a pH of 7.34 with a pCO2 of 36 and pO2 of 329. Initial lactic acid level is at 6.0. Cognitive testing was negative. Electrolytes show a component of an underlying metabolic acidosis with a gap of 16 and a bicarb level of 15. Glucose is 261. Sodium is at 141. Electrocardiogram 13.2 and elevated count of 151. Coagulation profile within normal limits. D-dimer was at 19.2. Initial troponin was 0.278. CAT scan of the brain showed chronic atrophy, without any acute abnormalities. No evidence of any hemorrhage and the findings were essentially nonspecific with white matter changes typical of remote ischemia. 06/04/2022, I'm seeing the patient for a follow-up. The patient remains intubated on a mechanical ventilator. Neurologically, the patient is not having any myoclonic jerks. The patient was given a total of 12 mg of Ativan yesterday in addition to propofol and Keppra. Since then, the patient underwent an EEG and there was no evidence of any seizure activity. Neurology on the case and the repeat EEG and a CAT scan of the brain will be done today. Meanwhile, the susana cuevas remains intubated on mechanical ventilator. The patient is on propofol running at 20 mg/kg per minute. The patient on normal saline at the rate of 75 mL an hour and the patient remains on norepinephrine at 0.08 mcg/kg per minute. The patient's lactic acid level is down to 1.6. Troponin was initially negative later on came up to 15 and to 20 consistent with acute non-ST segment elevation myocardial infarction. Echo was done and the patient has an ejection fraction of 25%. Remains on a mechanical ventilator on assist control mode at the rate of 14 with a tidal volume of 400 and FiO2 of 50% with a PEEP of 5. The pH is 7.38 with a pCO2 of 37 and pO2 167. The echoes a 24 with hemoglobin 13.4 and a platelet count of 153. Sodium is at 130s with a potassium level of 01/05/2009 bicarb of 21 BUN is 27 and creatinine is 0.9. The chest x-ray showing diffuse bilateral pulmonary infiltrates consistent with acute pulmonary edema. The patient is afebrile. The patient is producing adequate amount of urine output at this point in time. The patient also is on IV heparin for now. The patient is also on IV Zosyn as an empiric antibiotic coverage. 06/05/2023, the patient remains unresponsive. The patient was given a sedation holiday this morning and she was taken off propofol and within 30 minutes, the patient became tachypneic and tachycardic and he started biting and she will cough and and he had to be placed back on sedation and the patient is currently on low-dose propofol at 10 mcg/kg per minute. Note that the CAT scan of the brain was repeated twice and showed cerebral atrophy and the EEG was showing slowing and this was generalized slowing and there was no evidence of any focal seizures. The patient remains intubated on a mechanical ventilator. Hemodyn amically stable on no pressors. His fluid balance is -1.1 L of the patient was given diuretics and the chest x-ray showing improvement in the pulmonary edema. The patient was started on enteral feeding for nutritional support and the patient's current vital high protein at the rate of 41 mL an hour. The patient remains on a mechanical ventilator on assist control mode of mechanical ventilation with a rate of 14 with a tidal volume of 400 and FiO2 of 40% with a PEEP of 8. Blood gases from today shows a pH of 7.34 with pCO2 59 and pO2 of 100. The white cell count at 17.3 with a hemoglobin of 12.5 and a platelet count of 123. Sodium is at 140 with a potassium level of 3.6 and the BUN of 30 with a creatinine of 0.9. No fever. No seizure activity has been noted. The patient remains on IV Zosyn as an empiric antibiotic coverage. The patient is also on IV heparin. IV fluids and currently at [facility]. 06/06/2022, the patient is being seen for a follow-up. Clinically unchanged. The low-dose propofol 10 mcg/kg per minute. Taken off sedation. Only grimaces to deep painful stimulation. Does not follow any commands. No seizure activity has been noted. The patient spiked a fever of 101.3 yesterday. Given IV Tylenol and cooling blankets the patient is currently afebrile. The patient remains on a mechanical ventilator. He is an assist-control mode at the rate of 14 with a tidal volume of 400 and FiO2 of 40% with a PEEP of 5. Blood gas shows a pH of 7.43 with a pCO2 of 43 and pO2 of 93. Chest x-ray shows improvement in the pulmonary edema. The patient is currently off norepinephrine. IV fluids and currently at KVO. Fluid balance -1.1 L over the past 24 hours. The patient is receiving enteral feeding for nutritional support and the patient is on vital high protein at the rate of 40 mL an hour. The white cell count of 18.7 hemoglobin 9.9, sodium is 139, BUN is at 52 and the creatinine is at 1.2 with a serum bicarb of 31. Potassium level is 3.7. No other significant events otherwise for now. Neurologist on the case. Remains on IV Zosyn. Afebrile for now. 06/07/2022, I'm seeing the patient for a follow-up. The patient is off sedation and the patient is completely unresponsive for now. He is obviously not anoxic encephalopathy and we have not seen any neurologic recovery on this patient. Since yesterday, the patient has remained on essentially the same ventilator setting. The patient is on no propofol. It is a rate of 40 with adequate volume of 400 and FiO2 of 40% with a PEEP of 5. Blood gases were still pending at time of my evaluation. The chest x-ray showed no evidence of any acute abnormalities and ET tube was in a good location. The patient started having some diarrhea. The white cell count of 18 with a hemoglobin of 7.6 and platelet count of 188. Cardiac rhythm is sinus. Sodium is 144 with a BUN of 70 and a creatinine of1.37. Serum bicarb is 29. He is afebrile. He was tolerating enteral feeding for nutritional support. Objective - Vital Signs Vital signs: Vital Signs Temp 98.0 F 06/07/22 08:00 Pulse 80 06/07/22 08:00 Resp 18 06/07/22 08:00 BP 126/61 06/07/22 07:00 Pulse Ox 98 06/07/22 08:00 FiO2 40 06/07/22 08:13 Intake & Output 06/06/22 06/07/22 06/07/22 18:59 06:59 18:59 Intake Total 4715.123 8918.076 133.299 Output Total 360 575 75 Balance 735.998 576.076 58.299 Weight 59.6 kg 59 kg Intake: IV 406 276 23 Sodium Chloride 0.9% 1, 370 240 20 000 ml @ 10 mls/hr IV . Q24H [facility] Rx#:[id number] pressure bags 36 36 3 Intake, IV Titration 553.998 83.076 56.299 Amount ACETAMINOPHEN IV (For NPO 200 ) 1,000 mg In Empty Bag 1 bag @ 400 mls/hr IVPB Q8H [facility] Rx#:[id number] Norepinephrine 4 mg In 55.86 Sodium Chloride 0.9% 250 ml @ 0.05 MCG/KG/MIN 10. 369 mls/hr IV .Q24H [facility] Rx#:[id number] Piperacillin-Tazobactam 3 200 25 .375 gm In Sodium Chloride 0.9% 100 ml @ 25 mls/hr IVPB Q8HR [facility] Rx# :[id number] levETIRAcetam IV 1,000 mg 100 In Saline 1 100ml.bag @ 400 mls/hr IVPB Q12HR [facility] Rx#:[id number] propofoL 1,000 mg In 53.998 27.216 31.299 Empty Bag 1 bag @ 5 MCG/ KG/MIN 1.633 mls/hr IV . Q24H [facility] Rx#:[id number] Tube Feeding 136 702 54 Other 90 Output: Urine 360 575 75 Other: Voiding Method Indwelling Catheter Indwelling Catheter # Bowel Movements 1 1 ABP, PAP, CO, CI - Last Documented Arterial Blood Pressure 149/47 - Exam Intubated on a mechanical ventilator. The patient is showing no seizure activity.. Orogastric and orotracheal tube are both in place. The patient is sedated with low-dose propofol Head exam was generally normal. There was no scleral icterus or corneal arcus. Mucous membranes were moist. Neck was supple and without jugular venous distension, thyromegaly, or carotid bruits. Carotids were easily palpable bilaterally. There was no adenopathy. Lungs are diminished and the patient has some limited bibasilar crackles Cardiac exam revealed the PMI to be normally situated and sized. The rhythm was regular and no extrasystoles were noted during several minutes of auscultation. The first and second heart sounds were normal and physiologic splitting of the second heart sound was noted. There were no murmurs, rubs, clicks, or gallops. Abdominal exam revealed normal bowel sounds. The abdomen was soft, non-tender, and without masses, organomegaly, or appreciable enlargement of the abdominal aorta. Examination of the extremities revealed easily palpable radial, femoral and pedal pulses. There was no cyanosis, clubbing or edema. Examination of the skin revealed no evidence of significant rashes, suspicious appearing nevi or other concerning lesions. Neurologically the patient is completely unresponsive. The patient's left eye is completely opacified because of a previous cataract or coma. Right eye is around 3 mm in size, sluggishly reactive to light. No nystagmus. No preferential gaze. He has a positive cough and gag. He has occasional myoclonic jerks. Reflexes are diminished over extremities and motor and sensory function cannot be obtained. No facial asymmetry. Sensory functions cannot be obtained. Gait cannot be assessed. - Labs CBC & Chem 7: 06/07/22 04:08 06/07/22 04:08 Labs: Abnormal Lab Results - Last 24 Hours (Table) 06/06/22 06/06/22 06/06/22 Range/Units 04:23 13:11 18:19 WBC (3.8-10.6) k/uL RBC (4.30-5.90) m/uL Hgb (13.0-17.5) gm/dL Hct (39.0-53.0) % Neutrophils # (1.3-7.7) k/uL Potassium (3.5-5.1) mmol/L BUN (9-20) mg/dL Creatinine (0.66-1.25) mg/dL Glucose (74-99) mg/dL POC Glucose (mg/dL) 216 H 242 H (70-110) mg/dL Hemoglobin A1c 6.4 H (0.0-6.0) % Calcium (8.4-10.2) mg/dL Urine Protein (Negative) Ur Leukocyte Esterase (Negative) Urine WBC (0-5) /hpf Urine Bacteria (None) /hpf Urine Mucus (None) /hpf 06/06/22 06/06/22 06/07/22 Range/Units 20:59 23:27 04:08 WBC (3.8-10.6) k/uL RBC (4.30-5.90) m/uL Hgb (13.0-17.5) gm/dL Hct (39.0-53.0) % Neutrophils # (1.3-7.7) k/uL Potassium (3.5-5.1) mmol/L BUN (9-20) mg/dL Creatinine (0.66-1.25) mg/dL Glucose (74-99) mg/dL POC Glucose (mg/dL) 247 H 213 H (70-110) mg/dL Hemoglobin A1c (0.0-6.0) % Calcium (8.4-10.2) mg/dL Urine Protein Trace H (Negative) Ur Leukocyte Esterase Moderate H (Negative) Urine WBC 7 H (0-5) /hpf Urine Bacteria Rare H (None) /hpf Urine Mucus Rare H (None) /hpf 06/07/22 06/07/22 06/07/22 Range/Units 04:08 04:08 05:14 WBC 18.8 H (3.8-10.6) k/uL RBC 2.40 L (4.30-5.90) m/uL Hgb 7.6 L D (13.0-17.5) gm/dL Hct 23.2 L (39.0-53.0) % Neutrophils # 16.3 H (1.3-7.7) k/uL Potassium 3.3 L (3.5-5.1) mmol/L BUN 70 H (9-20) mg/dL Creatinine 1.37 H (0.66-1.25) mg/dL Glucose 180 H (74-99) mg/dL POC Glucose (mg/dL) 212 H (70-110) mg/dL Hemoglobin A1c (0.0-6.0) % Calcium 8.3 L (8.4-10.2) mg/dL Urine Protein (Negative) Ur Leukocyte Esterase (Negative) Urine WBC (0-5) /hpf Urine Bacteria (None) /hpf Urine Mucus (None) /hpf Microbiology - Last 24 Hours (Table) 06/03/22 17:45 Blood Culture - Preliminary Blood No Growth after 72 hours 06/03/22 12:25 Blood Culture - Preliminary Blood No Growth after 72 hours 06/03/22 12:10 Blood Culture - Preliminary Blood No Growth after 72 hours 06/04/22 00:45 Gram Stain - Final Sputum Sputum Culture - Final Assessment and Plan Plan: 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 The patient was taken off sedation and his neuro status being monitored for now. Neurologically unchanged for at least 3 days consistent with anoxic encephalopathy Acute fever, recovered, currently afebrile Acute cardiac arrest most likely secondary to an acute non-ST segment elevation myocardial infarction. The patient's severe cardiomyopathy with ejection fraction of 25%. Troponin peaked at 20. The patient is currently on IV heparin. The patient on norepinephrine for blood pressure support. Note that the patient was in a PEA rhythm at a time of initial evaluation. EMS arrived to the scene at 8:48 AM and there are reports of return of spontaneous circulation at 9:09 AM. The blood pressure however was quite low and subsequent blood pressures were quite low. The patient arrived to the ED with a normal sinus rhythm with a first-degree AV block and a RBBB pattern. The patient remains hemodynamically stable and no cardiac arrhythmias of been noted since admission. the patient is currently off pressors Acute diarrhea rule out C. diff colitis Acute hypoxic respiratory failure currently intubated on a mechanical ventilator, ventilator was checked and the chest x-ray was checked. No acute issues identified. Acute pulmonary edema secondary to above, improving as the patient was diuresed with IV Lasix and the patient is in a negative fluid balance, the chest x-ray has improved significantly and the patient is currently off diuretics Severe cardiomyopathy, likely ischemic with an ejection fraction of 25% Anoxic encephalopathy, clinically suspected due to cardiac arrest, currently seizure free, and the patient remains on propofol, while off for the patient remains unresponsive Episodic myoclonic jerks probably a representation of anoxic encephalopathy, currently seizure free and repeat EEG showed no acute abnormalities to indicate seizure activity. lactic acidosis with initial lactic acid level of 6 , due to cardiac arrest, r ecovered and normalized Acute leukocytosis, likely reactive, white cell count is at 18 Hyperglycemic, likely reactive, currently on sliding scale insulin coverage Enteral feeding for nutritional support Acute diarrhea, likely antibiotic induced. We'll stop the Zosyn and check stool for C. diff Acute kidney injury with some prerenal factors specially the patient was receiving diuretics and the patient currently has a diarrhea. Plan Continue ventilator support. no changes for today Awaiting blood gases from today Chest x-rays clear and ET tube is in a good location We'll stop the IV Zosyn Fecal management system is in place Give the patient a evaluation for C. diff and the stool Give the patient bolus of 1 L of normal saline Monitor fever pattern No sedation No pressors No diuretics No fever Possible comfort care measures as the patient has significant anoxic encephalopathy and the patient has failed to show any further or reasonable neurologic recovery metoprolol 25 mg twice a day Aspirin 81 mg by mouth daily Lovenox 40 mg subcu for DVT prophylaxis IV Protonix Condition is critical we will continue to follow Prognosis is poor We'll get an cytology laboratory manager and we will update the regarding his condition. This is a critically care evaluation was done more than 30 minutes. Long-term prognosis poor baseline above-mentioned comorbidities. Time with Patient: Greater than 30
[2022-06-07] MEDS: MIDAZOLAM 1 MG/ML 5 ML VIAL IV PRN ×2 (13:54→23:48)
[2022-06-07] MEDS ORDERED: MIDAZOLAM 1 MG/ML 5 ML VIAL IV PRN (14:11)
--- NOTE | 2022-06-07 17:11 | P.PN ---
Subjective Progress Note Date: 06/07/22 This is an 86 year old male who is brought into the hospital after being found unresponsive. He is currently intubated and being monitored in intensive care unit. Patient is on mechanical ventilator with FiO2 of 40%, afebrile, blood pressure 119/48. Patient is being followed up pulmonary forensic social worker, cardiology and neurology. Patient underwent EEG yesterday showing a generalized polyspike that increases risk for myoclonic seizure, additional findings in report suggest medication effect versus anoxia. Patient did have propofol paused this morning per nursing he experienced tachycardia during that time and propofol was restarted. Patient is not currently displaying myoclonus per reports he as having myoclonic jerks yesterday. Echocardiogram showing an EF of 25% with global hypokinesis also has troponin elevation. Patient had repeat chest xray today showing diffuse bilateral infiltrates greater on the left correlate for pulmonary edema versus pneumonia. Sputum and blood culture is currently pending. He is continued on IV zosyn. He received a dose of IV lasix today. Patient also continues on IV keppra. Patient is also on heparin infusion. Plan to start patient on enteral feedings today. Repeat EEG and brain CT pending. Labs today showing a white count of 21.4, neutrophils 19.4, BUN 27, creatinine 0.95, sodium 138, potassium 4.0, chloride 109, CO2 21, magnesium 1.8, AST 178, ALT 59, alk ph os 60. His procalcitonin yesterday is 4.05. Lactic acid has improved to 1.9. 06/05/2022 Patient evaluated in the ICU continues on mechanical ventilator with FIO2 of 40% currently with oxygen saturation of 99%. He had sedation holiday today and was minimally responsive. He did get agitated and also tachycardic while off the propofol. He had repeat EEG yesterday still with significant encephalopathy moderate to severe, which neurology felt was slightly improved from EEG. No epileptiform acitivty noted. He had brain CT reported yesterday which was negative for acute subacute ischemia. Neurology is following, he is continued on IV keppra. He continues on zosyn, has had low grade fever t max 100 overnight. He had repeat chest xray today showing diffuse bilateral infiltrates with left greater than right with small left pleural effusion. Correlate for pulmonary edema versus pneumonia. Blood culture and sputum culture are currently pending. He had IV lasix 40 mg x 1 yesterday. Patient has been started on enteral tube feedings, and tolerating well. No BM, his bowels are more active than yesterday. He has indwelling catheter in place. White count today is improved slightly 17.3, hgb 12.5, sodium 130, potassium 3.6, BUN 30, creatinine 0.90, glucose 150s, calcium 7.9. 06/06/2022 Patient continue to be monitored in ICU on mechanical ventilator with FiO2 of 40%. He had fever yesterday afternoon 101.3, 100.1. He continues on IV zosyn for empiric antibiotic coverage. So far blood cultures and sputum culture are negative, pending finalized cultures. He is receiving IV tylenol for fever. White count today is 18.7, his hemoglobin is now 9.9 with a 2.6 gram drop since yesterday, platelet count is stable at 158. Blood gases today showing a pH of 7.49, pO2 normalized at 93, HCO3 33, total CO2 34. Sodium today 139, potassium 3.7, BUN 52, creatinine 1.20, blood glucose 248, calcium 8.0. He has been started on enteral tube feedings with Vital AF 1.2 at 41 mls per hour, he is at goal and tolerating. No BM in 3 days will give a dose of lactulose today. Continues on IV keppra, patient was started on levophed, and continues on IV propofol for sedation. IV lasix has been discontinued. Chest xray today showing small left pleural effusion with improvement in diffuse bilateral infiltrates. Prognosis remains poor and there is plan for discussion with family regarding code status. 06/07/2022 Patient is evaluated today in intensive care unit with at bedside. He continues on mechanical ventilator with FiO2 of 40%, his oxygen saturation is around 98%. Blood pressure 124/40, heart rate remains in the 60s. Sputum culture has been resulted showing normal respiratory brandy. He continues on propofol gtt, not requiring pressor support today. He is started on gentle hydration 0.9 normal saline at 50 cc per hour. Per nurse he was off the propofol this morning and he had some facial twitching to his right eye/nose/mouth and neurology was notified. He was given a dose of valium and also keppra dose was increased. HGB today 7.6, He did have multiple episode of diarrhea overnight, FMS system in place, C.Dif is negative. Urinalysis showing trace protein, moderate leukocyte esterase, rare bacteria. Sodium today is 144, potassium 3.3, BUN 70, creatinine 1.37. Blood glucose in the 200s, levemir has been increased. Neurology has ordered a repeat EEG. Plan is to monitor overnight and tomorrow re-evaluate and discuss with making patient comfort care. Unable to complete full review of systems as patient is currently intubated in ICU. PHYSICAL EXAMINATION: GENERAL: The patient is currently intubated. Well developed, well nourished. HEENT: Pupils are round and equally reacting to light. EOMI. No scleral icterus. No conjunctival pallor. Normocephalic, atraumatic. No pharyngeal erythema. No thyromegaly. No spontaneous eye opening. CARDIOVASCULAR: S1 and S2 present. No murmurs, rubs, or gallops. PULMONARY: Scattered rhonchi ABDOMEN: Soft, nontender, nondistended, hypoactive bowel sounds. No palpable organomegaly. Indwelling catheter in place. MUSCULOSKELETAL: No joint swelling or deformity. EXTREMITIES: No cyanosis, clubbing, or pedal edema. NEUROLOGICAL: Unable to complete focal neurological exam patient is intubated and sedated in ICU. SKIN: No rashes. Assessment and plan Assessment Acute cardiac arrest possibly from acute Non ST elevation AR Possible anoxic encephalopathy Acute hypoxic respiratory failure on mechanical ventilation Myoclonus jerks, on IV Keppra empirically Leukocytosis Lactic acidosis, improved Non-anion gap metabolic acidosis secondary to lactic acidosis, improved Elevated liver enzymes possible from hepatic congestion GI Prophylaxis, IV protonix DVT Prophylaxis Lovenox Full Code Plan Continue monitoring patient in intensive care unit, on mechanical ventilator Neurology consultation Repeat EEG ordered, keppra dosing increased Cardiology recommending cardiac catheterization when respiratory status improves Insulin has been adjusted Lasix discontinued Continues on empiric antibiotic coverage Patient is continued on propofol IV fluids added today Repeat labs in AM Prognosis remains guarded at this time The impression and plan of care has been dictated by Brittney Pereira, Nurse Practitioner as directed. Dr. Kassi MD I have performed a history and physical examination and medical decision making of this patient, discussed the same with the dictator, and agree with the dictators assessment and plan as written, documented as a scribe. Based on total visit time, I have performed more than 50% of this visit. Objective - Vital Signs Vital signs: Vital Signs Temp 98.0 F 06/07/22 08:00 Pulse 80 06/07/22 08:00 Resp 18 06/07/22 08:00 BP 126/61 06/07/22 07:00 Pulse Ox 98 06/07/22 08:00 FiO2 40 06/07/22 08:13 Intake & Output 06/06/22 06/07/22 06/07/22 18:59 06:59 18:59 Intake Total 9296.338 6481.076 133.299 Output Total 360 575 75 Balance 735.998 576.076 58.299 Weight 59.6 kg 59 kg Intake: IV 406 276 23 Sodium Chloride 0.9% 1, 370 240 20 000 ml @ 10 mls/hr IV . Q24H [facility] Rx#:[id number] pressure bags 36 36 3 Intake, IV Titration 553.998 83.076 56.299 Amount ACETAMINOPHEN IV (For NPO 200 ) 1,000 mg In Empty Bag 1 bag @ 400 mls/hr IVPB Q8H [facility] Rx#:[id number] Norepinephrine 4 mg In 55.86 Sodium Chloride 0.9% 250 ml @ 0.05 MCG/KG/MIN 10. 369 mls/hr IV .Q24H [facility] Rx#:[id number] Piperacillin-Tazobactam 3 200 25 .375 gm In Sodium Chloride 0.9% 100 ml @ 25 mls/hr IVPB Q8HR [facility] Rx# :[id number] levETIRAcetam IV 1,000 mg 100 In Saline 1 100ml.bag @ 400 mls/hr IVPB Q12HR [facility] Rx#:[id number] propofoL 1,000 mg In 53.998 27.216 31.299 Empty Bag 1 bag @ 5 MCG/ KG/MIN 1.633 mls/hr IV . Q24H [facility] Rx#:[id number] Tube Feeding 136 702 54 Other 90 Output: Urine 360 575 75 Other: Voiding Method Indwelling Catheter Indwelling Catheter # Bowel Movements 1 1 ABP, PAP, CO, CI - Last Documented Arterial Blood Pressure 149/47 - Labs CBC & Chem 7: 06/07/22 04:08 06/07/22 14:00 Labs: Abnormal Lab Results - Last 24 Hours (Table) 06/06/22 06/06/22 06/06/22 Range/Units 04:23 13:11 18:19 WBC (3.8-10.6) k/uL RBC (4.30-5.90) m/uL Hgb (13.0-17.5) gm/dL Hct (39.0-53.0) % Neutrophils # (1.3-7.7) k/uL Potassium (3.5-5.1) mmol/L BUN (9-20) mg/dL Creatinine (0.66-1.25) mg/dL Glucose (74-99) mg/dL POC Glucose (mg/dL) 216 H 242 H (70-110) mg/dL Hemoglobin A1c 6.4 H (0.0-6.0) % Calcium (8.4-10.2) mg/dL Urine Protein (Negative) Ur Leukocyte Esterase (Negative) Urine WBC (0-5) /hpf Urine Bacteria (None) /hpf Urine Mucus (None) /hpf 06/06/22 06/06/22 06/07/22 Range/Units 20:59 23:27 04:08 WBC (3.8-10.6) k/uL RBC (4.30-5.90) m/uL Hgb (13.0-17.5) gm/dL Hct (39.0-53.0) % Neutrophils # (1.3-7.7) k/uL Potassium (3.5-5.1) mmol/L BUN (9-20) mg/dL Creatinine (0.66-1.25) mg/dL Glucose (74-99) mg/dL POC Glucose (mg/dL) 247 H 213 H (70-110) mg/dL Hemoglobin A1c (0.0-6.0) % Calcium (8.4-10.2) mg/dL Urine Protein Trace H (Negative) Ur Leukocyte Esterase Moderate H (Negative) Urine WBC 7 H (0-5) /hpf Urine Bacteria Rare H (None) /hpf Urine Mucus Rare H (None) /hpf 06/07/22 06/07/22 06/07/22 Range/Units 04:08 04:08 05:14 WBC 18.8 H (3.8-10.6) k/uL RBC 2.40 L (4.30-5.90) m/uL Hgb 7.6 L D (13.0-17.5) gm/dL Hct 23.2 L (39.0-53.0) % Neutrophils # 16.3 H (1.3-7.7) k/uL Potassium 3.3 L (3.5-5.1) mmol/L BUN 70 H (9-20) mg/dL Creatinine 1.37 H (0.66-1.25) mg/dL Glucose 180 H (74-99) mg/dL POC Glucose (mg/dL) 212 H (70-110) mg/dL Hemoglobin A1c (0.0-6.0) % Calcium 8.3 L (8.4-10.2) mg/dL Urine Protein (Negative) Ur Leukocyte Esterase (Negative) Urine WBC (0-5) /hpf Urine Bacteria (None) /hpf Urine Mucus (None) /hpf Microbiology - Last 24 Hours (Table) 06/03/22 17:45 Blood Culture - Preliminary Blood No Growth after 72 hours 06/03/22 12:25 Blood Culture - Preliminary Blood No Growth after 72 hours 06/03/22 12:10 Blood Culture - Preliminary Blood No Growth after 72 hours 06/04/22 00:45 Gram Stain - Final Sputum Sputum Culture - Final Assessment and Plan Time with Patient: Less than 30
[2022-06-07 17:41] LABS: Glucose,Whole Blood 204 mg/dL (70-110)
[2022-06-07] MEDS: levETIRAcetam IV 1,500 MG in SALINE 1 100ML.BAG IVPB SCH (22:22)
[2022-06-08 01:11] LABS: Glucose,Whole Blood 136 mg/dL (70-110)
[2022-06-08] MEDS: INSULIN ASPART (NovoLOG) 100 UNIT/ML VIAL SQ SCH ×9 (01:15→20:07)
[2022-06-08] MEDS: INSULIN DETEMIR (LEVEMIR) 100 UNIT/ML SYR SQ SCH ×2 (01:29→20:09)
[2022-06-08] MEDS: NOREPINEPHRINE 4 MG in SODIUM CHLORIDE 0.9% 250 ML IV SCH ×2 (01:29→21:17)
[2022-06-08 05:15] LABS: African American GFR (CKD) >90 (>60 ml/min/1.73 sqM); Anion Gap 5 mmol/L; Blood Urea Nitrogen 50 mg/dL (9-20); Calcium 6.9 mg/dL (8.4-10.2); Carbon Dioxide 25 mmol/L (22-30); Chloride 115 mmol/L (98-107); Glucose 155 mg/dL (74-99); Non-African American GFR(CKD) >90 (>60 ml/min/1.73 sqM); Potassium 4.1 mmol/L (3.5-5.1); Sodium 145 mmol/L (137-145)
[2022-06-08 05:57] LABS: ABG Base Excess 7.9 mmol/L; ABG HCO3 31 mmol/L (21-25); ABG Oxygen Saturation 98.6 % (94-97); ABG PCO2 38 mmHg (35-45); ABG PH 7.52 (7.35-7.45); ABG PO2 94 mmHg (83-108); ABG TCO2 32 mmol/L (19-24); Allen Test Performed? Yes
[2022-06-08 05:59] LABS: ABG Hematocrit 19 % (34.0-46.0)
[2022-06-08 06:13] LABS: Hypochromasia Slight; MCH 32.2 pg (25.0-35.0); MCHC 32.7 g/dL (31.0-37.0); MCV 98.6 fL (80.0-100.0); Macrocytosis Slight; Platelet Count 193 k/uL (150-450); RBC 2.02 m/uL (4.30-5.90)
--- NOTE | 2022-06-08 06:19 | XR ---
EXAMINATION TYPE: XR chest 1V portable DATE OF EXAM: 06/08/2022 CLINICAL HISTORY: Difficulty breathing progress study. TECHNIQUE: Single AP portable semiupright view of the chest is obtained. COMPARISON: Chest x-ray from one day earlier and older studies. FINDINGS: Stable endotracheal tube and orogastric tube. Stable left-sided subclavian central venous catheter. Surgical clips epigastric region redemonstrated. New increased central markings bilaterally. Mild car diomegaly is present with atherosclerotic thoracic aorta. Osseous structures are intact. IMPRESSION: More prominent cardiomegaly with new mild to moderate central vascular congestion. Correl ate for worsening CHF exacerbation advised.
[2022-06-08 06:28] LABS: HCT 19.9 % (39.0-53.0); HGB 6.5 gm/dL (13.0-17.5)
[2022-06-08 06:37] LABS: Glucose,Whole Blood 159 mg/dL (70-110)
[2022-06-08] MEDS: SODIUM CHLORIDE 0.9% 1,000 ML IV SCH ×3 (06:40→19:51)
[2022-06-08 07:20] LABS: Band Neutrophils % 7 %; Lymphocytes # (M) 3.09 k/uL (1.0-4.8); Monocytes # (M) 0.62 k/uL (0-1.0); Neutrophils % (M) 76 %; Nucleated Red Blood Cells 2 /100 WBC (0-0); Total Cells Counted 200; WBC 20.6 k/uL (3.8-10.6)
[2022-06-08 07:21] LABS: Anisocytosis (M) Present; Polychromasia Present
[2022-06-08] MEDS: levETIRAcetam IV 1,500 MG in SALINE 1 100ML.BAG IVPB SCH (07:49)
[2022-06-08] MEDS: CHLORHEXIDINE GLUCONATE 15 ML CUP MUCOUS MEM SCH ×3 (08:03→20:08)
[2022-06-08] MEDS: PANTOPRAZOLE 40 MG/10 ML VIAL IVP SCH ×2 (08:03→20:08)
[2022-06-08] MEDS: METOPROLOL TARTRATE 25 MG TAB PO SCH ×2 (08:04→20:09)
--- NOTE | 2022-06-08 08:59 | P.PN ---
Subjective Progress Note Date: 06/07/22 Patient was initially seen by Dr. Neo Monet. Please refer to his note for details. Patient is a 86-year-old male, who has suffered from cardiac arrest, with unclear downtime between 20-30 minutes perhaps. Patient was found to be in PEA on EMS arrival. Patient probably has suffered from anoxic encephalopathy. Patient has been on propofol 10 mcg/kg/m. At 8:30 AM, the sedation was turned off. Patient slowly became tachypneic, blood pressure went up and was tachycardic. At around 10:35 AM, the nurse noted twitching of the right facial region. Patient was given an extra bolus of Keppra 2000 mg, and the dose further increased to 1500 mg twice a day. The twitching was again noticed by the nurse for which patient was given Versed 5 mg IV push as was recommended by Dr. Neo Monet. At this time I do not see any facial twitching. Objective - Vital Signs Vital signs: Vital Signs Temp 97.5 F L 06/07/22 12:00 Pulse 67 06/07/22 12:00 Resp 21 06/07/22 12:00 BP 120/56 06/07/22 11:00 Pulse Ox 99 06/07/22 12:00 FiO2 40 06/07/22 11:27 Intake & Output 06/06/22 06/07/22 06/07/22 18:59 06:59 18:59 Intake Total 8383.436 5199.076 1682.299 Output Total 360 575 385 Balance 735.998 488.590 8558.299 Weight 59.6 kg 59 kg Intake: IV 406 276 38 Piperacillin-Tazobactam 3 0 .375 gm In Sodium Chloride 0.9% 100 ml @ 25 mls/hr IVPB Q8HR [facility] Rx# :[id number] Sodium Chloride 0.9% 1, 370 240 20 000 ml @ 10 mls/hr IV . Q24H [facility] Rx#:[id number] pressure bags 36 36 18 Intake, IV Titration 553.998 83.076 1206.299 Amount ACETAMINOPHEN IV (For NPO 200 ) 1,000 mg In Empty Bag 1 bag @ 400 mls/hr IVPB Q8H [facility] Rx#:[id number] Norepinephrine 4 mg In 55.86 Sodium Chloride 0.9% 250 ml @ 0.05 MCG/KG/MIN 10. 369 mls/hr IV .Q24H [facility] Rx#:[id number] Piperacillin-Tazobactam 3 200 25 .375 gm In Sodium Chloride 0.9% 100 ml @ 25 mls/hr IVPB Q8HR [facility] Rx# :[id number] Sodium Chloride 0.9% 1, 150 000 ml @ 50 mls/hr IV . Q20H [facility] Rx#:[id number] Sodium Chloride 0.9% 1, 1000 000 ml @ 999 mls/hr IV . Q1H1M [facility] Rx#:[id number] levETIRAcetam IV 1,000 mg 100 In Saline 1 100ml.bag @ 400 mls/hr IVPB Q12HR [facility] Rx#:[id number] propofoL 1,000 mg In 53.998 27.216 31.299 Empty Bag 1 bag @ 5 MCG/ KG/MIN 1.633 mls/hr IV . Q24H [facility] Rx#:[id number] Tube Feeding 136 702 378 Other 90 60 Output: Urine 360 575 385 Other: Voiding Method Indwelling Catheter Indwelling Catheter # Bowel Movements 1 1 ABP, PAP, CO, CI - Last Documented Arterial Blood Pressure 126/44 - Exam Patient is laying in the bed, appears comfortable, on sedation propofol 10 mcg/kg/m. Patient is comatose, with GCS of 4. Patient does have brainstem reflexes including positive gag, weekly positive cough, patient breathes over the ventilator. Oculocephalics are absent. Corneals are absent. 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 The right pupil is about 2 mm and sluggishly reactive if at all. Reflexes are hypoactive and plantars are flat. Cerebellar and sensory functions unable to be assessed. Motor patient does not respond to painful stimuli with some extensor posturing of the left upper extremity. - Labs CBC & Chem 7: 06/08/22 05:31 06/08/22 04:40 Labs: Abnormal Lab Results - Last 24 Hours (Table) 06/06/22 06/06/22 06/06/22 Range/Units 18:19 20:59 23:27 WBC (3.8-10.6) k/uL RBC (4.30-5.90) m/uL Hgb (13.0-17.5) gm/dL Hct (39.0-53.0) % Neutrophils # (1.3-7.7) k/uL ABG pH (7.35-7.45) ABG HCO3 (21-25) mmol/L ABG Total CO2 (19-24) mmol/L ABG O2 Saturation (94-97) % ABG Hematocrit (34.0-46.0) % Hemoglobin (13.0-17.5) gm/dL Potassium (3.5-5.1) mmol/L BUN (9-20) mg/dL Creatinine (0.66-1.25) mg/dL Glucose (74-99) mg/dL POC Glucose (mg/dL) 242 H 247 H 213 H (70-110) mg/dL Calcium (8.4-10.2) mg/dL Urine Protein (Negative) Ur Leukocyte Esterase (Negative) Urine WBC (0-5) /hpf Urine Bacteria (None) /hpf Urine Mucus (None) /hpf 06/07/22 06/07/22 06/07/22 Range/Units 04:08 04:08 04:08 WBC 18.8 H (3.8-10.6) k/uL RBC 2.40 L (4.30-5.90) m/uL Hgb 7.6 L D (13.0-17.5) gm/dL Hct 23.2 L (39.0-53.0) % Neutrophils # 16.3 H (1.3-7.7) k/uL ABG pH (7.35-7.45) ABG HCO3 (21-25) mmol/L ABG Total CO2 (19-24) mmol/L ABG O2 Saturation (94-97) % ABG Hematocrit (34.0-46.0) % Hemoglobin (13.0-17.5) gm/dL Potassium 3.3 L (3.5-5.1) mmol/L BUN 70 H (9-20) mg/dL Creatinine 1.37 H (0.66-1.25) mg/dL Glucose 180 H (74-99) mg/dL POC Glucose (mg/dL) (70-110) mg/dL Calcium 8.3 L (8.4-10.2) mg/dL Urine Protein Trace H (Negative) Ur Leukocyte Esterase Moderate H (Negative) Urine WBC 7 H (0-5) /hpf Urine Bacteria Rare H (None) /hpf Urine Mucus Rare H (None) /hpf 06/07/22 06/07/22 06/07/22 Range/Units 05:14 09:36 11:54 WBC (3.8-10.6) k/uL RBC (4.30-5.90) m/uL Hgb (13.0-17.5) gm/dL Hct (39.0-53.0) % Neutrophils # (1.3-7.7) k/uL ABG pH 7.50 H (7.35-7.45) ABG HCO3 32 H (21-25) mmol/L ABG Total CO2 33 H (19-24) mmol/L ABG O2 Saturation 98.9 H (94-97) % ABG Hematocrit 21 L (34.0-46.0) % Hemoglobin 6.7 L* (13.0-17.5) gm/dL Potassium (3.5-5.1) mmol/L BUN (9-20) mg/dL Creatinine (0.66-1.25) mg/dL Glucose (74-99) mg/dL POC Glucose (mg/dL) 212 H 194 H (70-110) mg/dL Calcium (8.4-10.2) mg/dL Urine Protein (Negative) Ur Leukocyte Esterase (Negative) Urine WBC (0-5) /hpf Urine Bacteria (None) /hpf Urine Mucus (None) /hpf Microbiology - Last 24 Hours (Table) 06/03/22 17:45 Blood Culture - Preliminary Blood No Growth after 72 hours 06/03/22 12:25 Blood Culture - Preliminary Blood No Growth after 72 hours 06/03/22 12:10 Blood Culture - Preliminary Blood No Growth after 72 hours 06/04/22 00:45 Gram Stain - Final Sputum Sputum Culture - Final Assessment and Plan Assessment: Acute Cardiopulmonary arrest. Initial rhythm reported is PEA. He was down for 15 minutes prior to EMS arrival per (without CPR) until found down by EMS a round 8:48AM and ROSC achieved at 9:09 Likely Anoxic brain injury (cannot determine extent of brain injury at this time) due to cardiopulmonary arrest. Small component due to sedation IV propofol. Myoclonic seizure due to cardiopulmonary arrest--resolved Acute hypoxic respiratory failure intubated and on mechanical ventilatory Cardiomyopathy with global hypokinesis. Moderate and aortic regurgitation Elevated troponin Plan: Continue Keppra. The nurse has noticed some right facial twitching with sedation holiday. The dose of Keppra has been increased to 1500 mg twice a day, patient will receive Versed 5 mg every 4 hours when necessary IV push as needed for focal twitching. Repeat EEG in the morning. Cardiology team is on board. Medical management as per IM and critical care. The patient condition is very critical and prognosis is poor for meaningful re covery. The plan is discussed with the patient's nurse. Once arrives, will have a discussion with her. Patient is DO NOT RESUSCITATE at this time. Apparently patient's considering hospice care, if no improvement in the next 24-48 hours.
[2022-06-08] MEDS: ENOXAPARIN 40 MG/0.4 ML SYRINGE SQ SCH (10:18)
[2022-06-08] MEDS: ASPIRIN 81 MG PO SCH (10:18)
[2022-06-08] MEDS ORDERED: PHENYTOIN SODIUM INJ 1,200 MG in SODIUM CHLORIDE 0.9% 100 ML IVPB STA (11:07)
--- NOTE | 2022-06-08 11:45 | P.PN ---
Subjective Progress Note Date: 06/08/22 Principal diagnosis: Cardiac arrest, acute hypoxic respiratory failure, acute anoxic encephalopathy 86-year-old male patient, healthy with a previous history of COVID 19 infectio ns occurred in 2020 from which the patient recovers. The patient's collapsed at home and the patient was found to be completely unresponsive by the . The patient is of origin and there is a communication barrier between us and the family. Based on the EMS sheets, the patient was completely unresponsive. The patient was intubated on the scene. He was given epinephrine 2, CPR and he was in PEA . The EMS arrived to the scene on 8:48 AM. Initial blood pressure recording was done on 9:14 AM where the blood pressure was reported to be 56/27 with a pulse of 50. The cardiac rhythm was sinus bradycardia. The patient got transferred to our emergency department following that. According to the records, the return of spontaneous circulation was on 90 9 AM. When the patient another arrived to the emergency department, he had a good pulse without being paced and the blood pressure was within normal limits. His initial blood pressure was 112/96 and his pulse ox was 98%. The patient was given EKG that showed a right bundle branch block pattern, a wide-complex rhythm, probably with underlying first-degree AV block. Cardiology was involved and the [employer] was not activated. CAT scan of the brain showed acute abnormalities. CAT scan of the chest showed no evidence of any pulmonary embolism there was diffuse bilateral pulmonary infiltrates in the mid and lower lung [place] bilaterally consistent with pneumonia over CHF. The patient was given a dose of Rocephin and vancomycin. The patient got moved to the intensive care unit. At this point in time, the patient is completely unresponsive. He is having some occasional myoclonic jerks. His temperature is currently at 98. He is on propofol which is running at 10 mcg/kg per minute. He is not following any verbal commands or painful stimulation. Whenever stimulated, he goes into episodic myoclonic jerks. The patient on a mechanical ventilator on assist control mode at a rate of 14 with a tidal volume of 400 and FiO2 of 80% with aspirin. The blood. His were noted. Initial blood gas that was obtainedIn the hospital showed a pH of 7.11 with a pCO2 of 51 and pO2 of 59 and this was on FiO2 of 100%. Subsequently, there was some difficulty in accepting the patient emergency. He was placed on a PEEP of 10 and repeat blood gases showed a pH of 7.4 with a pCO2 of 21 and pO2 of 55. Most recent blood gases after arrival to the ICU shows a pH of 7.34 with a pCO2 of 36 and pO2 of 329. Initial lactic aci d level is at 6.0. Cognitive testing was negative. Electrolytes show a component of an underlying metabolic acidosis with a gap of 16 and a bicarb level of 15. Glucose is 261. Sodium is at 141. Electrocardiogram 13.2 and elevated count of 151. Coagulation profile within normal limits. D-dimer was at 19.2. Initial troponin was 0.278. CAT scan of the brain showed chronic atrophy, without any acute abnormalities. No evidence of any hemorrhage and the findings were essentially nonspecific with white matter changes typical of remote ischemia. 06/07/2022, I'm seeing the patient for a follow-up. The patient is off sedation and the patient is completely unresponsive for now. He is obviously not anoxic encephalopathy and we have not seen any neurologic recovery on this patient. Since yesterday, the patient has remained on essentially the same ventilator setting. The patient is on no propofol. It is a rate of 40 with adequate volume of 400 and FiO2 of 40% with a PEEP of 5. Blood gases were still pending at time of my evaluation. The chest x-ray showed no evidence of any acute abnormalities and ET tube was in a good location. The patient started having some diarrhea. The white cell count of 18 with a hemoglobin of 7.6 and platelet count of 188. Cardiac rhythm is sinus. Sodium is 144 with a BUN of 70 and a creatinine of1.37. Serum bicarb is 29. He is afebrile. He was tolerating enteral feeding for nutritional support. Patient was reevaluated today on 06/08/22, patient remains in the ICU, intubated and mechanically ventilated. He is on tidal volume of 400 rate of 14 FiO2 40%, PEEP of 5. ABG showed a pO2 of 94 pCO2 38 pH of 7.5 to no changes were made on his ventilator settings. Patient remains on norepinephrine at 0.06 mcg/kg/m is also on propofol at 10 mcg/kg/m IV fluid at 60 mL per hour 0.9 normal saline. Hemoglobin today is 6.5. CODE STATUS has been changed, and the patient is likely going to comfort care later this morning according to the nurse taking care of the patient. Apparently family is requesting comfort care measures later today. Labs were reviewed WBC count is 20.6 hemoglobin is 6.5. Sodium 145 potassium 4.1 chloride 1:15 bicarb is 25 BUN is 50 creatinine 0.60. Patient does not seem to be responsive to any stimuli. And apparently he was found to have severe anoxic brain injury/encephalopathy as documented by neurology on the case. Chest x-ray today showed cardiomegaly, slight to moderate central vascular congestion, otherwise unremarkable Objective - Vital Signs Vital signs: Vital Signs Temp 99.2 F 06/08/22 08:00 Pulse 96 06/08/22 11:00 Resp 21 06/08/22 11:00 BP 120/56 06/07/22 18:00 Pulse Ox 98 06/08/22 11:00 FiO2 40 06/08/22 10:58 Intake & Output 06/07/22 06/08/22 06/08/22 18:59 06:59 18:59 Intake Total 2247.299 727.710 253.408 Output Total 745 501 130 Balance 1502.299 226.710 123.408 Weight 61.8 kg Intake: IV 53 673 222 Piperacillin-Tazobactam 3 0 .375 gm In Sodium Chloride 0.9% 100 ml @ 25 mls/hr IVPB Q8HR [facility] Rx# :[id number] Sodium Chloride 0.9% 1, 20 40 10 000 ml @ 10 mls/hr IV . Q24H [facility] Rx#:[id number] Sodium Chloride 0.9% 1, 500 200 000 ml @ 50 mls/hr IV . Q20H [facility] Rx#:[id number] levETIRAcetam IV 1,000 mg 100 In Saline 1 100ml.bag @ 400 mls/hr IVPB ONCE [facility] Rx#:[id number] pressure bags 33 33 12 Intake, IV Titration 1456.299 54.710 31.408 Amount Norepinephrine 4 mg In 15.899 Sodium Chloride 0.9% 250 ml @ 0.05 MCG/KG/MIN 10. 369 mls/hr IV .Q24H [facility] Rx#:[id number] Piperacillin-Tazobactam 3 25 .375 gm In Sodium Chloride 0.9% 100 ml @ 25 mls/hr IVPB Q8HR [facility] Rx# :[id number] Sodium Chloride 0.9% 1, 400 000 ml @ 50 mls/hr IV . Q20H [facility] Rx#:[id number] Sodium Chloride 0.9% 1, 1000 000 ml @ 999 mls/hr IV . Q1H1M [facility] Rx#:[id number] propofoL 1,000 mg In 31.299 38.811 31.408 Empty Bag 1 bag @ 5 MCG/ KG/MIN 1.633 mls/hr IV . Q24H [facility] Rx#:[id number] Tube Feeding 648 0 Other 90 Output: Urine 745 501 130 Other: Voiding Method Indwelling Catheter Indwelling Catheter # Bowel Movements 1 ABP, PAP, CO, CI - Last Documented Arterial Blood Pressure 112/47 - Exam Physical Exam: Revealed an elderly male, intubated, mechanically ventilated, unresponsive to any stimuli. Head: Atraumatic, normocephalic. HEENT:[Neck is supple.] [No neck masses.] [No thyromegaly.] [No JVD.] The tracheal tube and orogastric tube are intact. Chest: [Clear throughout, no crackles, no rhonchi, no wheezes.] Cardiac Exam: [Normal S1 and S2, no S3 gallop, no murmur.] Abdomen: [Soft, nontender, no megaly, no rebound, no guarding, normal bowel sounds.] Extremities: [No clubbing, no edema, no cyanosis.] Neurological Exam: Unresponsive to any stimuli left eye opacified related to previous cataract, right eye is 3 mm size pupil, sluggishly reactive to light no nystagmus and no gaze. Occasional myoclonic jerks have been noted. Psychiatric: Could not assess. Skin: No rashes - Labs CBC & Chem 7: 06/08/22 05:31 06/08/22 04:40 Labs: Abnormal Lab Results - Last 24 Hours (Table) 06/07/22 06/07/22 06/08/22 Range/Units 11:54 17:39 01:09 WBC (3.8-10.6) k/uL RBC (4.30-5.90) m/uL Hgb (13.0-17.5) gm/dL Hct (39.0-53.0) % Neutrophils # (Manual) (1.3-7.7) k/uL Nucleated RBCs (0-0) /100 WBC ABG pH (7.35-7.45) ABG HCO3 (21-25) mmol/L ABG Total CO2 (19-24) mmol/L ABG O2 Saturation (94-97) % ABG Hematocrit (34.0-46.0) % Hemoglobin (13.0-17.5) gm/dL Chloride (98-107) mmol/L BUN (9-20) mg/dL Creatinine (0.66-1.25) mg/dL Glucose (74-99) mg/dL POC Glucose (mg/dL) 194 H 204 H 136 H (70-110) mg/dL Calcium (8.4-10.2) mg/dL 06/08/22 06/08/22 06/08/22 Range/Units 04:40 05:31 05:52 WBC 20.6 H (3.8-10.6) k/uL RBC 2.02 L (4.30-5.90) m/uL Hgb 6.5 L* (13.0-17.5) gm/dL Hct 19.9 L* (39.0-53.0) % Neutrophils # (Manual) 17.00 H (1.3-7.7) k/uL Nucleated RBCs 2 H (0-0) /100 WBC ABG pH 7.52 H (7.35-7.45) ABG HCO3 31 H (21-25) mmol/L ABG Total CO2 32 H (19-24) mmol/L ABG O2 Saturation 98.6 H (94-97) % ABG Hematocrit 19 L* (34.0-46.0) % Hemoglobin 6.3 L* (13.0-17.5) gm/dL Chloride 115 H (98-107) mmol/L BUN 50 H (9-20) mg/dL Creatinine 0.60 L (0.66-1.25) mg/dL Glucose 155 H (74-99) mg/dL POC Glucose (mg/dL) (70-110) mg/dL Calcium 6.9 L (8.4-10.2) mg/dL 06/08/22 Range/Units 06:35 WBC (3.8-10.6) k/uL RBC (4.30-5.90) m/uL Hgb (13.0-17.5) gm/dL Hct (39.0-53.0) % Neutrophils # (Manual) (1.3-7.7) k/uL Nucleated RBCs (0-0) /100 WBC ABG pH (7.35-7.45) ABG HCO3 (21-25) mmol/L ABG Total CO2 (19-24) mmol/L ABG O2 Saturation (94-97) % ABG Hematocrit (34.0-46.0) % Hemoglobin (13.0-17.5) gm/dL Chloride (98-107) mmol/L BUN (9-20) mg/dL Creatinine (0.66-1.25) mg/dL Glucose (74-99) mg/dL POC Glucose (mg/dL) 159 H (70-110) mg/dL Calcium (8.4-10.2) mg/dL Microbiology - Last 24 Hours (Table) 06/03/22 17:45 Blood Culture - Preliminary Blood No Growth after 96 hours 06/03/22 12:25 Blood Culture - Preliminary Blood No Growth after 96 hours 06/03/22 12:10 Blood Culture - Preliminary Blood No Growth after 96 hours Assessment and Plan Assessment: Impression: Cardiac arrest and severe anoxic encephalopathy 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 Myoclonic jerks secondary to anoxic encephalopathy Acute kidney injury Recommendation: Continue ventilatory support for now. Continue present supportive care measures Continue norepinephrine and hemodynamic support. Continue to hold antibiotics. Continue IV fluids. No plans to do much today, family will likely go with comfort care measures later this morning. Prognosis is extremely poor and guarded. Critical care time is over 30 minutes Time with Patient: Greater than 30
[2022-06-08 11:46] LABS: Glucose,Whole Blood 203 mg/dL (70-110)
[2022-06-08 19:51] LABS: Glucose,Whole Blood 153 mg/dL (70-110)
[2022-06-08 20:36] LABS: HCT 22.1 % (39.0-53.0); HGB 6.7 gm/dL (13.0-17.5); Hypochromasia Marked; MCHC 30.3 g/dL (31.0-37.0); MCV 102.4 fL (80.0-100.0); Macrocytosis Slight; Mean Platelet Volume 9.4; Platelet Count 223 k/uL (150-450); RBC 2.16 m/uL (4.30-5.90); RDW 15.5 % (11.5-15.5); WBC 33.7 k/uL (3.8-10.6)
[2022-06-08 20:58] VITALS: RESP 30; TEMP 97.4
[2022-06-08] MEDS ORDERED: levETIRAcetam IV 1,500 MG in SALINE 1 100ML.BAG IVPB SCH (21:00)
--- NOTE | 2022-06-08 21:01 | EEG ---
ELECTROENCEPHALOGRAM REPORT PREAMBLE: This is an 86-year-old male with history of cardiac arrest. The patient is having new onset right facial twitching. This study is performed to evaluate for any epileptiform activity. The patient currently on propofol 10 mcg/kg per minute and Keppra 1500 mg b.i.d. Patient is comatose. EEG FINDINGS: This is a 21-channel digital EEG recording with video component, utilizing 10/20 international system with referential and bipolar montages. The recording starts and continues with presence of focal spikes seen over the right frontal region at 3 to 4 hertz seen in the entire recording. There is slight spreading of this activity over the head region. Occasional right facial twitching was also observed. Background otherwise consists of somewhat low-voltage fast frequency beta activity seen in bihemispheric region. IMPRESSION: 1. This is an abnormal EEG due to presence of focal epileptiform discharges over the right frontal region suggestive of underlying cortical irritability and may suggest partial status. 2. The background was slow with low-voltage activity with some fast frequency activity suggestive of generalized cerebral dysfunction as can be seen with encephalopathy or medication effect. 3. When compared to the EEG from 06/03/2022 and 06/04/2022, this focal epileptiform activity is new findings. Clinical correlation and followup EEG recommended as clinically indicated. MMODL / IJN: [id number] / PETEY
[2022-06-08] MEDS ORDERED: ATROPINE OPHTH SOLN 1% 5ML BTL SUBLINGUAL PRN (21:12)
[2022-06-08] MEDS ORDERED: MORPHINE SULFATE 4 MG/ML SYRINGE IV PRN (21:12)
[2022-06-08] MEDS ORDERED: SCOPOLAMINE 1 MG/72 HR PATCH TRANSDERM SCH (21:15)
[2022-06-08] MEDS ORDERED: MORPHINE SULFATE (100 MG/2 ML) 100 MG in SODIUM CHLORIDE 0.9% 100 ML IV SCH (21:15)
[2022-06-08 21:30] VITALS: BP 113/51; PULSE 74
[2022-06-09] MEDS ORDERED: PHENYTOIN SODIUM INJ 200 MG in SODIUM CHLORIDE 0.9% 36 ML IVPB SCH (00:15)
--- NOTE | 2022-06-17 16:19 | P.PN ---
Subjective Progress Note Date: 06/08/22 06/08/2022: Patient was seen for a follow-up. No clinical changes compared to previous exam. Patient currently on propofol 10 g per program per minute. No seizure-like activity noticed. Patient comatose. 06/07/2022: Patient was initially seen by Dr. Neo Monet. Please refer to his note for details. Patient is a 86-year-old male, who has suffered from cardiac arrest, with unclear downtime between 20-30 minutes perhaps. Patient was found to be in PEA on EMS arrival. Patient probably has suffered from anoxic encephalopathy. Patient has been on propofol 10 mcg/kg/m. At 8:30 AM, the sedation was turned off. Patient slowly became tachypneic, blood pressure went up and was tachycardic. At around 10:35 AM, the nurse noted twitching of the right facial region. Patient was given an extra bolus of Keppra 2000 mg, and the dose further increased to 1500 mg twice a day. The twitching was again noticed by the nurse for which patient was given Versed 5 mg IV push as was recommended by Dr. Neo Monet. At this time I do not see any facial twitching. Objective - Vital Signs Vital signs: Vital Signs Temp 99.2 F 06/08/22 08:00 Pulse 91 06/08/22 10:00 Resp 20 06/08/22 10:00 BP 120/56 06/07/22 18:00 Pulse Ox 90 L 06/08/22 10:00 FiO2 40 06/08/22 09:00 Intake & Output 06/07/22 06/08/22 06/08/22 18:59 06:59 18:59 Intake Total 2247.299 727.710 253.408 Output Total 745 501 130 Balance 1502.299 226.710 123.408 Weight 61.8 kg Intake: IV 53 673 222 Piperacillin-Tazobactam 3 0 .375 gm In Sodium Chloride 0.9% 100 ml @ 25 mls/hr IVPB Q8HR [facility] Rx# :[id number] Sodium Chloride 0.9% 1, 20 40 10 000 ml @ 10 mls/hr IV . Q24H [facility] Rx#:[id number] Sodium Chloride 0.9% 1, 500 200 000 ml @ 50 mls/hr IV . Q20H [facility] Rx#:[id number] levETIRAcetam IV 1,000 mg 100 In Saline 1 100ml.bag @ 400 mls/hr IVPB [facility]CE [facility] Rx#:[id number] pressure bags 33 33 12 Intake, IV Titration 1456.299 54.710 31.408 Amount Norepinephrine 4 mg In 15.899 Sodium Chloride 0.9% 250 ml @ 0.05 MCG/KG/MIN 10. 369 mls/hr IV .Q24H [facility] Rx#:[id number] Piperacillin-Tazobactam 3 25 .375 gm In Sodium Chloride 0.9% 100 ml @ 25 mls/hr IVPB Q8HR [facility] Rx# :[id number] Sodium Chloride 0.9% 1, 400 000 ml @ 50 mls/hr IV . Q20H [facility] Rx#:[id number] Sodium Chloride 0.9% 1, 1000 000 ml @ 999 mls/hr IV . Q1H1M [facility] Rx#:[id number] propofoL 1,000 mg In 31.299 38.811 31.408 Empty Bag 1 bag @ 5 MCG/ KG/MIN 1.633 mls/hr IV . Q24H [facility] Rx#:[id number] Tube Feeding 648 0 Other 90 Output: Urine 745 501 130 Other: Voiding Method Indwelling Catheter Indwelling Catheter # Bowel Movements 1 ABP, PAP, CO, CI - Last Documented Arterial Blood Pressure 111/45 - Exam Patient is laying in the bed, appears comfortable, on sedation propofol 10 mcg/kg/m. Patient is comatose, with GCS of 4. Patient does have brainstem reflexes including positive gag, weekly positive cough, patient breathes over the ventilator. Oculocephalics are absent. Corneals are absent. 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 The right pupil is about 2 mm and sluggishly reactive if at all. Reflexes are hypoactive and plantars are flat. Cerebellar and sensory functions unable to be assessed. Motor patient does not respond to painful stimuli with some extensor posturing of the left upper extremity. No seizure-like activities noticed. - Labs CBC & Chem 7: 06/08/22 20:25 06/08/22 04:40 Labs: Abnormal Lab Results - Last 24 Hours (Table) 06/07/22 06/07/22 06/08/22 Range/Units 11:54 17:39 01:09 WBC (3.8-10.6) k/uL RBC (4.30-5.90) m/uL Hgb (13.0-17.5) gm/dL Hct (39.0-53.0) % Neutrophils # (Manual) (1.3-7.7) k/uL Nucleated RBCs (0-0) /100 WBC ABG pH (7.35-7.45) ABG HCO3 (21-25) mmol/L ABG Total CO2 (19-24) mmol/L ABG O2 Saturation (94-97) % ABG Hematocrit (34.0-46.0) % Hemoglobin (13.0-17.5) gm/dL Chloride (98-107) mmol/L BUN (9-20) mg/dL Creatinine (0.66-1.25) mg/dL Glucose (74-99) mg/dL POC Glucose (mg/dL) 194 H 204 H 136 H (70-110) mg/dL Calcium (8.4-10.2) mg/dL 06/08/22 06/08/22 06/08/22 Range/Units 04:40 05:31 05:52 WBC 20.6 H (3.8-10.6) k/uL RBC 2.02 L (4.30-5.90) m/uL Hgb 6.5 L* (13.0-17.5) gm/dL Hct 19.9 L* (39.0-53.0) % Neutrophils # (Manual) 17.00 H (1.3-7.7) k/uL Nucleated RBCs 2 H (0-0) /100 WBC ABG pH 7.52 H (7.35-7.45) ABG HCO3 31 H (21-25) mmol/L ABG Total CO2 32 H (19-24) mmol/L ABG O2 Saturation 98.6 H (94-97) % ABG Hematocrit 19 L* (34.0-46.0) % Hemoglobin 6.3 L* (13.0-17.5) gm/dL Chloride 115 H (98-107) mmol/L BUN 50 H (9-20) mg/dL Creatinine 0.60 L (0.66-1.25) mg/dL Glucose 155 H (74-99) mg/dL POC Glucose (mg/dL) (70-110) mg/dL Calcium 6.9 L (8.4-10.2) mg/dL 06/08/22 Range/Units 06:35 WBC (3.8-10.6) k/uL RBC (4.30-5.90) m/uL Hgb (13.0-17.5) gm/dL Hct (39.0-53.0) % Neutrophils # (Manual) (1.3-7.7) k/uL Nucleated RBCs (0-0) /100 WBC ABG pH (7.35-7.45) ABG HCO3 (21-25) mmol/L ABG Total CO2 (19-24) mmol/L ABG O2 Saturation (94-97) % ABG Hematocrit (34.0-46.0) % Hemoglobin (13.0-17.5) gm/dL Chloride (98-107) mmol/L BUN (9-20) mg/dL Creatinine (0.66-1.25) mg/dL Glucose (74-99) mg/dL POC Glucose (mg/dL) 159 H (70-110) mg/dL Calcium (8.4-10.2) mg/dL Microbiology - Last 24 Hours (Table) 06/03/22 17:45 Blood Culture - Preliminary Blood No Growth after 96 hours 06/03/22 12:25 Blood Culture - Preliminary Blood No Growth after 96 hours 06/03/22 12:10 Blood Culture - Preliminary Blood No Growth after 96 hours Assessment and Plan Assessment: Acute Cardiopulmonary arrest. Initial rhythm reported is PEA. He was down for 15 minutes prior to EMS arrival per (without CPR) until found down by EMS around 8:48AM and ROSC achieved at 9:09 Likely Anoxic brain injury (cannot determine extent of brain injury at this time) due to cardiopulmonary arrest. Small component due to sedation IV propofol. Myoclonic seizure due to cardiopulmonary arrest--resolved Abnormal EEG Acute hypoxic respiratory failure intubated and on mechanical ventilatory Cardiomyopathy with global hypokinesis. Moderate and aortic regurgitation Elevated troponin Plan: Continue Keppra. The nurse has noticed some right facial twitching with sedation holiday. The dose of Keppra has been increased to 1500 mg twice a day, patient will receive Versed 5 mg every 4 hours when necessary IV push as needed for focal twitching. Repeat EEG was abnormal due to presence of focal epileptiform discharges over the right frontal region suggestive of underlying cortical irritability and may suggest partial status. Background was slow with low voltage activity with some fast frequency activity suggestive of generalized cerebral dysfunction as can be seen with encephalopathy or medication effect. When compared to the EEG from 06/03/2022 and 06/04/2022, this focal epileptiform activity is new finding. Clinical correlation and follow-up EEG recommended. Patient was given a loading dose of Dilantin 1200 mg and maintained on Dilantin 200 mg twice a day. Patient also on Keppra 1500 mg twice a day. We will check Dilantin level. Seizure activity has resolved. May need repeat EEG. Cardiology team is on board. Medical management as per IM and critical care. The patient condition is very critical and prognosis is poor for meaningful recovery. The plan is discussed with the patient's nurse. Discussed with patient's about the results as above. Patient is DO NOT RESUSCITATE at this time. Apparently patient's c onsidering hospice care at this point.
--- NOTE | 2022-06-18 21:02 | P.DS ---
Providers Date of admission: 06/03/22 12:27 Attending physician: Sara Ozuna Consults: 06/03/22 09:56 Consult Physician Stat Consulting Provider: [facility] Consult Reason/Comments: PEA Do you want consulting provider notified?: Yes 06/03/22 12:21 Consult Physician Stat Consulting Provider: Dennis Nation Consult Reason/Comments: Critical care management Do you want consulting provider notified?: Yes 06/03/22 14:59 Consult Physician Stat Consulting Provider: Neo Monet Consult Reason/Comments: seizures Do you want consulting provider notified?: Yes Primary care physician: [facility] Course: Diagnosis Acute cardiac arrest possibly from acute Non ST elevation [place] Cardiomyopathy with global hypokinesis, moderate AR, MR Acute pulmonary edema from above 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 Hospital Course This is an 86 year old male who is brought into the hospital after being found unresponsive at home, per they were watching TV and patient had collapsed on her and was unresponsive she went and called 911. Patient and his speak primary cantonese and there has been a language barrier requiring the use of thermograph operator services. Patient was found unresponsive and in PEA arrest by EMS and had 2 rounds of CPR and 2 doses of Epi and received ROSC. CT chest is negative for PE, he did present with elevated D-Dimer. There was possible multifocal pneumonia. He was intubated and monitored in ICU. Patient was found to have troponin elevation and echocardiogram shows EF of 25% with global hypokinesis sugguestive of an acute Non ST elevation [place]. He also had chest xray that showed diffuse bilateral infiltrates. He was started on heparin infusion and also IV zosyn. Cardiology had decided to hold off on coronary angiogram pending improvement in patients condition. He had cultures taken that were negative. He had leukocytosis. Neurology was consulted for seizure like activity and also patient has not been neurological responding to sedation holiday. EEG shows possible seizure like activity and also medication effect versus anoxia. He was started on IV keppra empirically as well. Brain CT was negative. Patient was continued on mechanical ventilator and followed by cardiology and pulmonary collar baster jumpbasting. Neurology had also been following patient. Neurology and primary care team met with patients on 06/06/2022 using thermograph operator services and discussed prognosis and current treatments. She wanted to continue for 2 more days and monitor for signs of improvement before making decision for comfort care. Neurology re-evaluated patient on 06/08/22, He has been primarily comatose. Patient had repeat EEG on 06/08 which found evidence of new focal epileptiform activity and seizure medications were adjusted. This was due to new facial twitching patient had during sedation holiday on 06/07/22. Neurology has felt patients condition is critical and prognosis is poor for meaningful recovery. Pulmonary collar baster jumpbasting following and feels prognosis is poor and there is plan for comfort care based on families wishes. Patient had critical hemoglobin of 6.7. On 06/08/2022 at 2223 patient was extubated and and was contacted. Thank you for allowing us to participate in the care of this patient The impression and plan of care has been dictated by Brittney Pereira, Nurse Practitioner as directed acting as scribe for Dr. Harrington. Dr. Juany MD I have performed a history and physical examination and medical decision making of this patient, discussed the same with the dictator, and agree with the dictators assessment and plan as written, documented as a scribe. Based on total visit time, I have performed more than 50% of this visit. Plan - Discharge Summary Discharge Rx Participant: No New Discharge Prescriptions: No Action Zinc 50 mg PO DAILY Ascorbic Acid [Vitamin C] 1,000 mg PO DAILY Latanoprost/Pf [Latanoprost 0.005% Eye Drop] 1 drop BOTH EYES HS Multivit-Min/FA/Lycopen/Lutein [Centrum Silver Tablet] 1 tab PO DAILY Cyanocobalamin (Vitamin B-12) [Vitamin B-12] 1,000 mcg PO DAILY Cholecalciferol [Vitamin D3 (25 Mcg = 1000 Iu)] 25 mcg PO DAILY Melatonin 5 mg PO HS Discharge Medication List Latanoprost/Pf [Latanoprost 0.005% Eye Drop] 1 drop BOTH EYES HS 01/13/21 [History] Ascorbic Acid [Vitamin C] 1,000 mg PO DAILY 06/03/22 [History] Cholecalciferol [Vitamin D3 (25 Mcg = 1000 Iu)] 25 mcg PO DAILY 06/03/22 [History] Cyanocobalamin (Vitamin B-12) [Vitamin B-12] 1,000 mcg PO DAILY 06/03/22 [History] Melatonin 5 mg PO HS 06/03/22 [History] Multivit-Min/FA/Lycopen/Lutein [Centrum Silver Tablet] 1 tab PO DAILY 06/03/22 [History] Zinc 50 mg PO DAILY 06/03/22 [History] Follow up Appointment(s)/Referral(s): Stanley Rosales MD [STAFF PHYSICIAN] - 1-2 days Discharge Disposition: - Preliminary Cause of Preliminary Cause of : acute myocardial infarction
== END 2022-06-08 22:43 | disposition expired ==
LOC: EC 09:35 → 2SICU 12:27
PROVIDERS: ADMIT Hospitalist; ATTEND Hospitalist
PROC: 03HY32Z Insertion of Monitoring Device into Upper Artery, Percutaneous Approach (ICD-10-PCS; principal; 2022-06-03)
PROC: 5A1955Z Respiratory Ventilation, Greater than 96 Consecutive Hours (ICD-10-PCS; 2022-06-03)
PROC: 4A133B1 Monitoring of Arterial Pressure, Peripheral, Percutaneous Approach (ICD-10-PCS; 2022-06-03)
PROC: 4A133J1 Monitoring of Arterial Pulse, Peripheral, Percutaneous Approach (ICD-10-PCS; 2022-06-03)
PROC: 02HV33Z Insertion of Infusion Device into Superior Vena Cava, Percutaneous Approach (ICD-10-PCS; 2022-06-03)
PROC: 0BH18EZ Insertion of Endotracheal Airway into Trachea, Via Natural or Artificial Opening Endoscopic (ICD-10-PCS; 2022-06-03)
PROC: 3E033XZ Introduction of Vasopressor into Peripheral Vein, Percutaneous Approach (ICD-10-PCS; 2022-06-03)
DX: I21.4 Non-ST elevation (NSTEMI) myocardial infarction (principal); J18.9 Pneumonia, unspecified organism; J96.01 Acute respiratory failure with hypoxia; J81.0 Acute pulmonary edema; J90 Pleural effusion, not elsewhere classified; E87.2 Acidosis; N17.9 Acute kidney failure, unspecified; G93.1 Anoxic brain damage, not elsewhere classified; I42.9 Cardiomyopathy, unspecified; I45.2 Bifascicular block; I08.3 Combined rheumatic disorders of mitral, aortic and tricuspid valves; D64.9 Anemia, unspecified; G25.3 Myoclonus; I95.9 Hypotension, unspecified; I49.8 Other specified cardiac arrhythmias; M54.81 Occipital neuralgia; Z66 Do not resuscitate; Z51.5 Encounter for palliative care; I44.0 Atrioventricular block, first degree; R79.89 Other specified abnormal findings of blood chemistry; R73.9 Hyperglycemia, unspecified; R19.7 Diarrhea, unspecified; Z20.822 Contact with and (suspected) exposure to COVID-19; Z86.74 Personal history of sudden cardiac arrest; I25.2 Old myocardial infarction; Z86.16 Personal history of COVID-19
CPT/HCPCS: 36415; 36600; 70450; 71045; 71275; 80048; 80053; 80177; 81001; 82553; 82805; 83036; 83605; 83735; 84132; 84145; 84484; 85025; 85027; 85379; 85610; 85730; 87040; 87070; 87205; 87324; 87502; 87635; 93005; 93306; 94002; 94003; 95822; 96365; 96375; 96376; 99291